=== PATIENT | female | born 1935 | race Caucasian/White ===

== ENCOUNTER 2018-04-21 15:27 | Emergency (ER) | payer OTHER ==
[2018-04-21] MEDS ORDERED: MECLIZINE HCL 12.5 MG TAB ONE (16:29)
[2018-04-21] MEDS ORDERED: DIAZEPAM 10 MG/2 ML INJ SYRINGE ONE (16:34)
[2018-04-21 16:51] LABS: Protime INR 1.54
[2018-04-21 16:54] LABS: Absolute Lymphocytes (CBC) 1.7 K/uL (0.7-4.9); Absolute Monocytes 0.7 K/uL (0.1-1.3); Absolute Neutrophil 4.2 K/uL (1.8-8.0); Basophils % 0.7 % (0-1.3); Eosinophils % 1.1 % (0-4.4); Hematocrit 41.3 % (36.0-45.0); Lymphocytes % 25.5 % (15.3-44.8); MCH 32.4 pg (27.0-35.0); MCV 96.7 fL (80-100); MPV 7.5 fL (7.6-11.3); Monocytes % 10.5 % (3.3-12.3); RBC Red Blood Cell Count 4.27 M/uL (3.86-4.86)
[2018-04-21 17:05] LABS: Albumin 3.1 g/dL (3.4-5.0); Bilirubin Direct 0.1 mg/dL (0-0.2); Bilirubin Total 0.4 mg/dL (0.2-1.0); Magnesium 2.3 mg/dL (1.8-2.4); Potassium 3.7 mmol/L (3.5-5.1); Protein, Total 6.2 g/dL (6.4-8.2)
--- NOTE | 2018-04-21 17:58 | RAD REPORT ---
EXAM DESCRIPTION: RAD - Chest Single View - 04/21/2018 5:11 pm CLINICAL HISTORY: Weakness, dizziness, shortness of breath COMPARISON: None. TECHNIQUE: AP portable chest image was obtained . FINDINGS: Lungs are clear. Lung markings are similar to comparison. Heart and vasculature are normal . No measurable pleural effusion and no pneumothorax. No gross bony abnormality seen. No acute aortic findings suspected. IMPRESSION: No acute cardiopulmonary process. No significant change from comparison.
--- NOTE | 2018-04-21 18:00 | RAD REPORT ---
EXAM DESCRIPTION: CT - Head Brain Wo Cont - 04/21/2018 5:48 pm CLINICAL HISTORY: Dizziness, headache COMPARISON: MRI March 2016 TECHNIQUE: Axial 5 mm thick images of the head were obtained without IV contrast. All CT scans are performed using dose optimization technique as appropriate and may include automated exposure control or mA/KV adjustment according to patient size. FINDINGS: No intracranial hemorrhage, mass, edema or shift of mid-line structures. No acute cortical based infarction. No cortical edema or sulcal effacement. Mild atrophy is present similar to 2016. M oderate chronic ischemic changes are present also without a substantial change from 2016. Focal dimin ished attenuation in the lateral margin left basal ganglia is most likely remote ischemic event. Dens e arterial tree calcifications are present. No abnormal extra-axial fluid collections. Ventricles are normal. Mastoid air cells and visualized portions of the paranasal sinuses are clear. No acute bony findings. IMPRESSION: No hemorrhage, mass or acute cortical based infarction. Mild atrophy and moderate chronic ischemic change. Intracranial findings are not substantially diffe rent from comparison. Chronic ischemic changes can mask nonhemorrhagic acute infarction. MR brain followup can be obtained if there is ongoing concern for acute ischemia.
--- NOTE | 2018-04-21 18:20 | RAD REPORT ---
EXAM DESCRIPTION: CT - Head angio - 04/21/2018 5:58 pm CLINICAL HISTORY: Right-sided headache COMPARISON: CT head same date TECHNIQUE: During dynamic enhancement using nonionic IV contrast, axial 2 mm sagittal and coronal im ages were obtained with MIP protocol. FINDINGS: Major venous sinuses are patent. No venous sinus thrombosis. No aneurysm or vascular malformation identified. No stenosis or occlusion of a major intracranial ves angeli. Internal carotid artery's have dense calcification. No vasculitis or other suspicious finding id entifiable. IMPRESSION: CT angio head shows no significant or suspicious finding. Internal carotid arteries do s how dense calcification without stenosis.
--- NOTE | 2018-04-21 18:23 | RAD REPORT ---
EXAM DESCRIPTION: CT - Neck Angio - 04/21/2018 6:02 pm CLINICAL HISTORY: Headache, neck pain COMPARISON: CT angio head same date, CT head same date TECHNIQUE: During dynamic enhancement using nonionic IV contrast, axial 2 millimeter thick images of the cervical vasculature performed. Sagittal and coronal reconstruction imaging was performed using MIP technique FINDINGS: Calcifications are present in each carotid bulb generating only a mild luminal narrowing. No hemodynamically significant stenosis at either carotid bulb. The common carotid and internal carot id arteries are otherwise clear of significant disease. Dense calcifications are present in the brett nous portions of the internal carotid artery's but no significant stenosis seen. There is no dissecti on. No aneurysm or vascular malformation. No vertebral artery abnormality seen. IMPRESSION: CT angio neck shows carotid bulb calcification and cavernous internal carotid artery gisela cification. Significant stenoses are not identified.
--- NOTE | 2018-04-21 18:33 | ER ---
Nurse's Notes [facility] Name: Bismark Clayton Age: 82 yrs Sex: Female : 1935 Arrival Date: 04/21/2018 Time: 15:31 Bed 14 Private MD: Noel Davis Diagnosis: Dizziness Presentation: 04/21 15:42 Presenting complaint: Patient states: Muscle spasm in right side of neck since this am. aj Patient also reports dizziness for 2 months. Has appointment with PCP for dizziness on Sunday. Transition of care: patient was not received from another setting of care. Onset of symptoms was April 21, 2018. Risk Assessment: Do you want to hurt yourself or someone else? Patient reports no desire to harm self or others. Initial Sepsis Screen: Does the patient meet any 2 criteria? No. Patient's initial sepsis screen is negative. Does the patient have a suspected source of infection? No. Patient's initial sepsis screen is negative. Care prior to arrival: None. 15:42 Method Of Arrival: Wheelchair 15:42 Acuity: GAURAV 3 aj Triage Assessment: 15:44 General: Appears in no apparent distress. comfortable, Behavior is calm, cooperative, aj appropriate for age. Pain: Denies pain. Neuro: Level of Consciousness is awake, alert, obeys commands, Oriented to person, place, time, situation, Appropriate for age. Neuro: Reports dizziness. Respiratory: Airway is patent Respiratory effort is even, unlabored, Respiratory pattern is regular, symmetrical. Derm: Skin is intact, is healthy with good turgor, Skin is pink, warm \T\ dry. normal. Historical: - Allergies: 15:44 Mobic (ringing in ears, balance not good); aj 15:44 Morphine; aj - Home Meds: 15:44 Ambien 10 mg Oral tab 1 tab once daily [Active]; Chlordiazepoxide Oral [Active]; aj fenofibric acid Oral [Active]; Fish Oil Oral [Active]; Lyrica 75 mg BID Oral [Active]; trimethobenzamide 300 mg Oral cap [Active]; Restasis 0.05 % ophthalmic dpet 1 drop daily [Active]; Zolpidem Tartrate Oral [Active]; - PMHx: 15:44 Headaches; Diverticulitis; Hyperlipidemia; Migraines; neuropathy; Osteoporosis; Sleep aj Apnea; - PSHx: 15:44 Hysterectomy; Bladder suspension; aj - Immunization history:: Adult Immunizations up to date. - Social history:: Smoking status: Patient/guardian denies using tobacco. - Ebola Screening: : Patient negative for fever greater than or equal to 101.5 degrees Fahrenheit, and additional compatible Ebola Virus Disease symptoms Patient denies exposure to infectious person Patient denies travel to an Ebola-affected area in the 21 days before illness onset No symptoms or risks identified at this time. Screenin:30 Abuse screen: Denies threats or abuse. Denies injuries from another. Nutritional hb screening: No deficits noted. Tuberculosis screening: No symptoms or risk factors identified. Fall Risk Total Emerson Fall Scale indicates Low Risk Score (25-44 pts). Fall prevention measures have been instituted. Side Rails Up X 2 Frequent Obs/Assesments occuring Family Present and informed to notify staff if they need to leave bedside As available Patient and Family Educated on Fall Prevention Program and strategies. Assessment: 16:30 General: Appears in no apparent distress. Behavior is calm, cooperative. Pain: Denies hb pain. Neuro: Level of Consciousness is awake, alert, obeys commands, Oriented to person, place, time, situation, Pupils are PERRLA, Reports dizziness. Cardiovascular: Heart tones S1 S2 present Capillary refill < 3 seconds Patient's skin is warm and dry. Respiratory: Airway is patent Trachea midline Respiratory effort is even, unlabored, Respiratory pattern is regular, symmetrical, Breath sounds are clear bilaterally. GI: No signs and/or symptoms were reported involving the gastrointestinal system. : No signs and/or symptoms were reported regarding the genitourinary system. EENT: No signs and/or symptoms were reported regarding the EENT system. Derm: No signs and/or symptoms reported regarding the dermatologic system. Skin is intact, is healthy with good turgor, Skin is pink, warm \T\ dry. Musculoskeletal: No signs and/or symptoms reported regarding the musculoskeletal system. 17:30 Reassessment: Patient appears in no apparent distress at this time. No changes from hb previously documented assessment. Patient and/or family updated on plan of care and expected duration. Pain level reassessed. Patient is alert, oriented x 3, equal unlabored respirations, skin warm/dry/pink. 18:08 Reassessment: Patient appears in no apparent distress at this time. No changes from hb previously documented assessment. Patient and/or family updated on plan of care and expected duration. Pain level reassessed. Patient is alert, oriented x 3, equal unlabored respirations, skin warm/dry/pink. 18:15 Reassessment: Report given to YOVANI Adam. hb Vital Signs: 15:44 BP 134 / 85; Pulse 92; Resp 17; Temp 97.4; Pulse Ox 96% on R/A; Weight 72.57 kg; Height aj 5 ft. 3 in. (160.02 cm); 16:30 BP 132 / 90; Pulse 78; Resp 15; Pulse Ox 96% on R/A; hb 17:28 BP 101 / 73; Pulse 90; Resp 15; Pulse Ox 96% on R/A; hb 18:22 BP 149 / 93; Pulse 88; Resp 16; Pulse Ox 100% on R/A; hb 15:44 Body Mass Index 28.34 (72.57 kg, 160.02 cm) aj ED Course: 15:31 Patient arrived in ED. mr 15:31 Noel Davis MD is Private Physician. mr 15:40 Madeleine Zamarripa, GINO is Primary Nurse. hb 15:43 Triage completed. aj 15:44 Arm band placed on right wrist. Patient placed in an exam room. aj 15:45 Rohit Johnson PA is PHCP. jr8 15:46 Oamr Machuca MD is Attending Physician. jr8 16:30 Inserted saline lock: 20 gauge in right antecubital area, using aseptic technique. hb Blood collected. 16:43 Patient has correct armband on for positive identification. Placed in gown. Bed in low mh5 position. Call light in reach. Side rails up X 1. Adult w/ patient. Warm blanket given. Pulse ox on. NIBP on. 17:10 EKG done, by ED staff, reviewed by Rohit DELACRUZ. mh5 17:11 XRAY Chest (1 view) In Process Unspecified. EDMS 17:47 CT completed. Patient moved to CT via stretcher. Patient moved back from CT. bq 17:48 CT Head Brain wo Cont In Process Unspecified. EDMS 17:58 Head angio In Process Unspecified. EDMS 17:58 Neck Angio In Process Unspecified. EDMS 18:32 Vi Virgen MD is Referral Physician. jr8 18:32 Danish Neal MD is Referral Physician. jr8 19:16 No provider procedures requiring assistance completed. IV discontinued, intact, em bleeding controlled, No redness/swelling at site. Pressure dressing applied. Administered Medications: 16:40 Drug: Valium 2 mg Route: IVP; Site: right antecubital; hb 19:16 Follow up: Response: No adverse reaction em 16:47 Drug: Meclizine 25 mg Route: PO; hb 19:16 Follow up: Response: No adverse reaction em Outcome: 18:32 Discharge ordered by MD. jr8 19:16 Discharged to home via wheelchair. em 19:16 Condition: good 19:16 Discharge instructions given to patient, family, Instructed on discharge instructions, follow up and referral plans. medication usage, Demonstrated understanding of instructions, follow-up care, medications, Prescriptions given X 2. 19:17 Patient left the ED. em Signatures: Dispatcher [employer] Janay Aguirre RN RN aj Rivera, Maria mr Shanique Aviles Edgar, IRON MINER IRON MINER em Rohit Johnson PA PA jr Madeleine Zamarripa RN RN hb Martinez, Maria [facility]
--- NOTE | 2018-04-21 18:33 | EDPHYS ---
Physician Documentation [facility] Name: Bismark Clayton Age: 82 yrs Sex: Female : 1935 Arrival Date: 04/21/2018 Time: 15:31 Bed 14 Private MD: Noel Davis ED Physician Omar Machuca HPI: 04/21 16:42 This 82 yrs old Female presents to ER via Wheelchair with complaints of Neck jr8 Problem, Dizziness. 16:43 The patient presents with lightheadedness. Onset: The symptoms/episode began/occurred jr8 gradually, 1 year(s) ago, and became worse and became persistent. Modifying factors: The symptoms are alleviated by nothing, the symptoms are aggravated by changing position. Associated signs and symptoms: The patient has no apparent associated signs or symptoms. Severity of symptoms: At their worst the symptoms were mild in the emergency department the symptoms are unchanged. Patient's baseline: Neuro: alert and fully oriented, Motor: no deficits, Ambulation: walks with assist only, uses walker, Speech: normal. The patient has not recently seen a physician. 16:48 Patient stated that she has had dizziness for some time now. Stated that it recently jr8 became worse. Stated that she has an odd sensation in her neck that makes it worse. Denies actual pain to the neck at rest or with motion. Denies trauma to neck . Historical: - Allergies: 15:44 Mobic (ringing in ears, balance not good); aj 15:44 Morphine; aj - Home Meds: 15:44 Ambien 10 mg Oral tab 1 tab once daily [Active]; Chlordiazepoxide Oral [Active]; aj fenofibric acid Oral [Active]; Fish Oil Oral [Active]; Lyrica 75 mg BID Oral [Active]; trimethobenzamide 300 mg Oral cap [Active]; Restasis 0.05 % ophthalmic dpet 1 drop daily [Active]; Zolpidem Tartrate Oral [Active]; - PMHx: 15:44 Headaches; Diverticulitis; Hyperlipidemia; Migraines; neuropathy; Osteoporosis; Sleep aj Apnea; - PSHx: 15:44 Hysterectomy; Bladder suspension; aj - Immunization history:: Adult Immunizations up to date. - Social history:: Smoking status: Patient/guardian denies using tobacco. - Ebola Screening: : Patient negative for fever greater than or equal to 101.5 degrees Fahrenheit, and additional compatible Ebola Virus Disease symptoms Patient denies exposure to infectious person Patient denies travel to an Ebola-affected area in the 21 days before illness onset No symptoms or risks identified at this time. ROS: 16:48 Eyes: Negative for injury, pain, redness, and discharge, ENT: Negative for injury, jr8 pain, and discharge, Neck: Negative for injury, pain, and swelling, Cardiovascular: Negative for chest pain, palpitations, and edema, Respiratory: Negative for shortness of breath, cough, wheezing, and pleuritic chest pain, Abdomen/GI: Negative for abdominal pain, nausea, vomiting, diarrhea, and constipation, Back: Negative for injury and pain, MS/Extremity: Negative for injury and deformity, Skin: Negative for injury, rash, and discoloration. 16:48 Neuro: Positive for dizziness, Negative for altered mental status, gait disturbance, headache, hearing loss, loss of consciousness, numbness, seizure activity, speech changes, syncope, near syncope, tingling, tinnitus, tremor, visual changes, weakness. Exam: 16:48 Eyes: Pupils equal round and reactive to light, extra-ocular motions intact. Lids and jr8 lashes normal. Conjunctiva and sclera are non-icteric and not injected. Cornea within normal limits. Periorbital areas with no swelling, redness, or edema. ENT: Nares patent. No nasal discharge, no septal abnormalities noted. Tympanic membranes are normal and external auditory canals are clear. Oropharynx with no redness, swelling, or masses, exudates, or evidence of obstruction, uvula midline. Mucous membranes moist. Neck: Trachea midline, no thyromegaly or masses palpated, and no cervical lymphadenopathy. Supple, full range of motion without nuchal rigidity, or vertebral point tenderness. No Meningismus. Cardiovascular: Regular rate and rhythm with a normal S1 and S2. No gallops, murmurs, or rubs. Normal PMI, no JVD. No pulse deficits. Respiratory: Lungs have equal breath sounds bilaterally, clear to auscultation and percussion. No rales, rhonchi or wheezes noted. No increased work of breathing, no retractions or nasal flaring. Abdomen/GI: Soft, non-tender, with normal bowel sounds. No distension or tympany. No guarding or rebound. No evidence of tenderness throughout. Back: No spinal tenderness. No costovertebral tenderness. Full range of motion. Skin: Warm, dry with normal turgor. Normal color with no rashes, no lesions, and no evidence of cellulitis. MS/ Extremity: Pulses equal, no cyanosis. Neurovascular intact. Full, normal range of motion. Neuro: Awake and alert, GCS 15, oriented to person, place, time, and situation. Cranial nerves II-XII grossly intact. Motor strength 5/5 in all extremities. Sensory grossly intact. Cerebellar exam normal. Normal gait. Vital Signs: 15:44 BP 134 / 85; Pulse 92; Resp 17; Temp 97.4; Pulse Ox 96% on R/A; Weight 72.57 kg; Height aj 5 ft. 3 in. (160.02 cm); 16:30 BP 132 / 90; Pulse 78; Resp 15; Pulse Ox 96% on R/A; hb 17:28 BP 101 / 73; Pulse 90; Resp 15; Pulse Ox 96% on R/A; hb 18:22 BP 149 / 93; Pulse 88; Resp 16; Pulse Ox 100% on R/A; hb 15:44 Body Mass Index 28.34 (72.57 kg, 160.02 cm) aj MDM: 15:46 Patient medically screened. jr8 18:30 Differential diagnosis: cardiac arrhythmia, CVA, generalized weakness, idiopathic jr8 dizziness, near-syncope, syncope, TIA, vertigo. Data reviewed: vital signs, nurses notes, lab test result(s), EKG, radiologic studies, CT scan, plain films. Data interpreted: Pulse oximetry: on room air is 100 %. Interpretation: normal. Counseling: I had a detailed discussion with the patient and/or guardian regarding: the historical points, exam findings, and any diagnostic results supporting the discharge/admit diagnosis, lab results, radiology results, the need for outpatient follow up, an ENT specialist, a neurologist, to return to the emergency department if symptoms worsen or persist or if there are any questions or concerns that arise at home. Response to treatment: the patient's symptoms have mildly improved after treatment. 04/21 16:22 Order name: Basic Metabolic Panel; Complete Time: 17:07 04/21 16:22 Order name: CBC with Diff; Complete Time: 16:58 04/21 16:22 Order name: LFT's; Complete Time: 17:07 04/21 16:22 Order name: Magnesium; Complete Time: 17:07 04/21 16:22 Order name: PT-INR; Complete Time: 16:58 04/21 18:20 Order name: Urine Dipstick--Ancillary (enter results); Complete Time: 18:49 04/21 16:22 Order name: XRAY Chest (1 view); Complete Time: 18:02 [facility] 04/21 16:22 Order name: EKG; Complete Time: 16:23 [facility] 04/21 16:22 Order name: Cardiac monitoring; Complete Time: 16:47 [facility] 04/21 16:23 Order name: CT Head Brain wo Cont; Complete Time: 18:02 [facility] 04/21 16:27 Order name: Head angio; Complete Time: 18:23 EDMS 04/21 16:27 Order name: Neck Angio; Complete Time: 18:33 EDIA 04/21 16:22 Order name: EKG - Nurse/Tech; Complete Time: 17:15 [facility] 04/21 16:22 Order name: IV Saline Lock; Complete Time: 16:47 [facility] 04/21 16:22 Order name: Labs collected and sent; Complete Time: 16:47 [facility] 04/21 16:22 Order name: O2 Per Protocol; Complete Time: 16:47 [facility] 04/21 16:22 Order name: O2 Sat Monitoring; Complete Time: 16:47 04/21 16:22 Order name: Urine Dipstick-Ancillary (obtain specimen); Complete Time: 18:19 Administered Medications: 16:40 Drug: Valium 2 mg Route: IVP; Site: right antecubital; hb 19:16 Follow up: Response: No adverse reaction em 16:47 Drug: Meclizine 25 mg Route: PO; hb 19:16 Follow up: Response: No adverse reaction em Disposition: 04/22 15:21 Co-signature as Attending Physician, Omar Machuca MD I agree with the assessment and alfredo plan of care. Disposition: 04/21/18 18:32 Discharged to Home. Impression: Dizziness . - Condition is Stable. - Prescriptions for Meclizine 25 mg Oral Tablet - take 1 tablet by ORAL route every 8 hours As needed; 30 tablet. Valium 2 mg Oral Tablet - take 1 tablet by ORAL route every 8 hours As needed; 20 tablet. - Medication Reconciliation Form, Thank You Letter, Antibiotic Education, Prescription Opioid Use form. - Follow up: Vi Virgen MD; When: 2 - 3 days; Reason: Recheck today's complaints, Continuance of care, Re-evaluation by your physician. Follow up: Danish Neal MD; When: 2 - 3 days; Reason: Recheck today's complaints, Continuance of care, Re-evaluation by your physician. - Problem is new. - Symptoms have improved. Signatures: Dispatcher [employer] EDJanay Fischer, RN RN Omar Modi MD MD cha Munoz, Edgar, PAPER CORE MACHINE OPERATOR PAPER CORE MACHINE OPERATOR em Rohit Johnson PA PA jr8 Madeleine Zamarripa RN RN Corrections: (The following items were deleted from the chart) 04/21 19:17 18:32 04/21/2018 18:32 Discharged to Home. Impression: Dizziness . Condition is Stable. em Forms are Medication Reconciliation Form, Thank You Letter, Antibiotic Education, Prescription Opioid Use. Follow up: Vi Virgen; When: 2 - 3 days; Reason: Recheck today's complaints, Continuance of care, Re-evaluation by your physician. Follow up: Danish Neal; When: 2 - 3 days; Reason: Recheck today's complaints, Continuance of care, Re-evaluation by your physician. Problem is new. Symptoms have improved. jr8
[2018-04-21 18:44] LABS: Urine Blood NEGATIVE (NEG); Urine Glucose NEGATIVE (NEG); Urine Protein NEGATIVE (NEG)
[2018-04-21 19:21] VITALS: TEMP 97.4
[2018-04-21 19:24] VITALS: BP 149/93; O2SAT 100
--- NOTE | 2018-04-22 07:40 | EKG ---
Test Date: 2018-04-21 Test Time: 16:54:45 Plant Utility Person: LUZ MEASUREMENT RESULTS: Intervals: Rate: 85 [place]: QRSD: 80 QT: 374 QTc: 445 [place]: P: [place]: QRS: 44 T: 62 INTERPRETIVE STATEMENTS: Atrial fibrillation Abnormal ECG Compared to ECG 11/07/2017 03:49:59 no significant change from previous ECG Electronically Signed On 04-22-18 07:39:44 CDT by Estuardo Dalton
== END 2018-04-21 19:17 | disposition home or self-care (01) ==
LOC: ER 15:27
DX: R42 Dizziness and giddiness (principal); E78.5 Hyperlipidemia, unspecified; Z88.5 Allergy status to narcotic agent
CPT/HCPCS: 36415; 70450; 70496; 70498; 71045; 80048; 80076; 81003; 83735; 85025; 85610; 93005; 96374; 99285; J3360; Q9967

== ENCOUNTER 2018-07-17 17:23 | Emergency (ER) | payer OTHER ==
--- NOTE | 2018-07-17 19:13 | RAD REPORT ---
EXAM DESCRIPTION: RAD - Foot Left 3 View - 07/17/2018 6:19 pm CLINICAL HISTORY: Foot pain, soft tissue swelling following trauma COMPARISON: None. FINDINGS: No fracture, dislocation or periosteal reaction. Minimal cortical irregularity is present in the medial margin of the fourth middle phalanx at the base. This is favored to be degenerative in etiology rather than traumatic. No acute or destructive bony process. No air or foreign body in the soft tissues. Soft tissue swelling is present over the dorsum of the fo ot. IMPRESSION: No gross fracture deformity or significant acute bone finding. Swelling of the dorsum of the foot. No air or foreign body.
--- NOTE | 2018-07-17 19:14 | RAD REPORT ---
EXAM DESCRIPTION: RAD - Ankle Left 3 View - 07/17/2018 6:19 pm CLINICAL HISTORY: Foot and ankle pain and swelling, trauma COMPARISON: None. FINDINGS: Oblique fracture is present through the distal fibula. 1 millimeter lateral displacement i s present. No angulation deformity. Ankle mortise is normal. Medial malleolus shows very small 2 mill imeter irregular bone density at the tip. This is potentially a small avulsion. Fracture such as this would not alter medical management. Soft tissue swelling is present around the ankle joint. No joint effusion seen. No joint space narrowing. No foreign body. IMPRESSION: Oblique fracture through the distal fibula. Very minimal lateral displacement is present with no angulation deformity. Punctate bone density tip of the medial malleolus is potentially a small avulsion. Such a fracture wo uld not likely alter medical management.
--- NOTE | 2018-07-17 19:30 | EDPHYS ---
Physician Documentation [facility] Name: Bismark Clayton Age: 82 yrs Sex: Female : 1935 Arrival Date: 07/17/2018 Time: 17:26 Bed 26 Private MD: Noel Davis ED Physician Jake Marrero HPI: 07/17 19:05 This 82 yrs old Female presents to ER via Wheelchair with complaints of Left pm1 Foot and Ankle Pain. 19:05 The patient presents with pain, swelling. The complaints affect the left lateral ankle pm1 and left foot. Context: The problem was sustained at home, resulted from Slip, the patient is not able to bear weight, normally uses a walker, Problem is a result from a previous injury: No. Onset: The symptoms/episode began/occurred last night. Modifying factors: The symptoms are alleviated by nothing. the symptoms are aggravated by weight bearing. Associated signs and symptoms: Pertinent positives: swelling, Pertinent negatives calf tenderness, numbness, tingling. Treatment prior to arrival includes: heat. Severity of symptoms: in the emergency department the symptoms are unchanged. The patient has not experienced similar symptoms in the past. Patient slipped while trying to get out of the tub resulting in injury to left ankle and foot. Patient did not hit her head. No headache, head injury, neck pain, LOC, nausea or vomiting. Historical: - Allergies: 17:34 Mobic (ringing in ears, balance not good); aj 17:34 Morphine; aj - Home Meds: 17:34 Ambien 10 mg Oral tab 1 tab once daily [Active]; Chlordiazepoxide Oral [Active]; aj fenofibric acid Oral [Active]; Fish Oil Oral [Active]; Lyrica 75 mg BID Oral [Active]; Restasis 0.05 % ophthalmic dpet 1 drop daily [Active]; trimethobenzamide 300 mg Oral cap [Active]; Zolpidem Tartrate Oral [Active]; - PMHx: 17:34 Diverticulitis; Headaches; Hyperlipidemia; Migraines; neuropathy; Osteoporosis; Sleep aj Apnea; - PSHx: 17:34 Hysterectomy; Bladder suspension; back surgery; aj - Immunization history:: Adult Immunizations up to date. - Social history:: Smoking status: Patient/guardian denies using tobacco. - Ebola Screening: : Patient negative for fever greater than or equal to 101.5 degrees Fahrenheit, and additional compatible Ebola Virus Disease symptoms Patient denies exposure to infectious person Patient denies travel to an Ebola-affected area in the 21 days before illness onset No symptoms or risks identified at this time. ROS: 19:05 Constitutional: Negative for fever, chills, and weight loss, Eyes: Negative for injury, pm1 pain, redness, and discharge, ENT: Negative for injury, pain, and discharge, Neck: Negative for injury, pain, and swelling, Cardiovascular: Negative for chest pain, palpitations, and edema, Respiratory: Negative for shortness of breath, cough, wheezing, and pleuritic chest pain, Abdomen/GI: Negative for abdominal pain, nausea, vomiting, diarrhea, and constipation, Back: Negative for injury and pain. 19:05 Skin: Negative for injury, rash, and discoloration, Neuro: Negative for headache, weakness, numbness, tingling, and seizure. 19:05 MS/extremity: Positive for pain, swelling, of the left foot and left lateral ankle. Exam: 19:05 Constitutional: This is a well developed, well nourished patient who is awake, alert, pm1 and in no acute distress. Head/Face: Normocephalic, atraumatic. Eyes: Pupils equal round and reactive to light, extra-ocular motions intact. Lids and lashes normal. Conjunctiva and sclera are non-icteric and not injected. Cornea within normal limits. Periorbital areas with no swelling, redness, or edema. ENT: Nares patent. No nasal discharge, no septal abnormalities noted. Tympanic membranes are normal and external auditory canals are clear. Oropharynx with no redness, swelling, or masses, exudates, or evidence of obstruction, uvula midline. Mucous membranes moist. Neck: Trachea midline, no thyromegaly or masses palpated, and no cervical lymphadenopathy. Supple, full range of motion without nuchal rigidity, or vertebral point tenderness. No Meningismus. Chest/axilla: Normal chest wall appearance and motion. Nontender with no deformity. No lesions are appreciated. Cardiovascular: Regular rate and rhythm with a normal S1 and S2. No gallops, murmurs, or rubs. No pulse deficits. Respiratory: Lungs have equal breath sounds bilaterally, clear to auscultation and percussion. No rales, rhonchi or wheezes noted. No increased work of breathing, no retractions or nasal flaring. Abdomen/GI: Soft, non-tender, with normal bowel sounds. No distension or tympany. No guarding or rebound. No evidence of tenderness throughout. Back: No spinal tenderness. No costovertebral tenderness. Full range of motion. Skin: Warm, dry with normal turgor. Normal color with no rashes, no lesions, and no evidence of cellulitis. 19:05 Musculoskeletal/extremity: Extremities: grossly normal except: noted in the left lateral ankle: swelling, tenderness, noted in the dorsum of left foot: ecchymosis, swelling. 19:05 Neuro: Orientation: is normal, Motor: moves all fours. Vital Signs: 17:34 BP 106 / 54; Pulse 70; Resp 20; Temp 98.6; Pulse Ox 94% on R/A; Weight 74.84 kg; Height aj 5 ft. 3 in. (160.02 cm); 20:35 BP 138 / 74; Pulse 72; Resp 18; Pulse Ox 100% on R/A; tl3 17:34 Body Mass Index 29.23 (74.84 kg, 160.02 cm) aj MDM: 17:39 Patient medically screened. pm1 19:24 Data reviewed: vital signs. Counseling: I had a detailed discussion with the patient pm1 and/or guardian regarding: the historical points, exam findings, and any diagnostic results supporting the discharge/admit diagnosis, radiology results, the need for outpatient follow up, for definitive care, a orthopedic surgeon, to return to the emergency department if symptoms worsen or persist or if there are any questions or concerns that arise at home. 07/17 17:47 Order name: Foot Left 3 View XRAY; Complete Time: 19:22 pm1 07/17 17:47 Order name: Ankle Left 3 View XRAY; Complete Time: 19:22 pm1 07/17 19:24 Order name: Posterior Orthoglass Ankle Splint; Complete Time: 19:52 pm1 07/17 19:24 Order name: Ankle Splint: Orthoglass: Stirrup; Complete Time: 19:52 pm1 Administered Medications: No medications were administered Disposition: 07/18 07:19 Co-signature as Attending Physician, Jake Marrero MD. rn Disposition: 07/17/18 19:29 Discharged to Home. Impression: Oblique fracture of the left distal fibula, Puntuate avulsion fracture of distal medial malleous of left tibia. - Condition is Stable. - Discharge Instructions: Ankle Fracture, Cast or Splint Care, Adult, RICE for Routine Care of Injuries. - Prescriptions for Tramadol 50 mg Oral Tablet - take 1 tablet by ORAL route every 8 hours as needed; 20 tablet. - Medication Reconciliation Form, Thank You Letter, Prescription Opioid Use form. - Follow up: Emergency Department; When: As needed; Reason: Worsening of condition. Follow up: Olegario Thompson MD; When: 2 - 3 days; Reason: Recheck today's complaints, Continuance of care, Re-evaluation by your physician. - Problem is new. - Symptoms have improved. Signatures: Dispatcher [employer] EDMS Janay Vuong RN RN Jake De MD MD rn Marinas, Patrick, FRANK ASSOCIATE GENETICS PROFESSOR pm1 Geovanna Mustafa RN RN tl3 Corrections: (The following items were deleted from the chart) 07/17 20:43 19:29 07/17/2018 19:29 Discharged to Home. Impression: Oblique fracture of the left tl3 distal fibula; Puntuate avulsion fracture of distal medial malleous of left tibia. Condition is Stable. Forms are Medication Reconciliation Form, Thank You Letter, Antibiotic Education, Prescription Opioid Use. Follow up: Emergency Department; When: As needed; Reason: Worsening of condition. Follow up: Olegario Thompson; When: 2 - 3 days; Reason: Recheck today's complaints, Continuance of care, Re-evaluation by your physician. Problem is new. Symptoms have improved. pm1
--- NOTE | 2018-07-17 19:30 | ER ---
Nurse's Notes [facility] Name: Bismark Clayton Age: 82 yrs Sex: Female : 1935 Arrival Date: 07/17/2018 Time: 17:26 Bed 26 Private MD: Noel Davis Diagnosis: Oblique fracture of the left distal fibula;Puntuate avulsion fracture of distal medial malleous of left tibia Presentation: 07/17 17:32 Presenting complaint: Patient states: Left foot pain and bruising after struggling to aj get out of the bathtub. Patient is unsure of injury but reports that she had slid around on her knees while trying to get out of her bathtub. Transition of care: patient was not received from another setting of care. Onset of symptoms was July 14, 2018. Risk Assessment: Do you want to hurt yourself or someone else? Patient reports no desire to harm self or others. Initial Sepsis Screen: Does the patient meet any 2 criteria? No. Patient's initial sepsis screen is negative. Does the patient have a suspected source of infection? No. Patient's initial sepsis screen is negative. Care prior to arrival: None. 17:32 Method Of Arrival: Wheelchair 17:32 Acuity: GAURAV 4 aj Triage Assessment: 17:34 General: Appears in no apparent distress. comfortable, Behavior is calm, cooperative, aj appropriate for age. Pain: Complains of pain in left foot. Neuro: Level of Consciousness is awake, alert, obeys commands, Oriented to person, place, time, situation, Appropriate for age. Respiratory: Airway is patent Respiratory effort is even, unlabored, Respiratory pattern is regular, symmetrical. Derm: Skin is intact, is healthy with good turgor, Skin is pink, warm \T\ dry. normal. 17:34 Derm: Bruising that is dark purple, on dorsum of left foot. aj Historical: - Allergies: 17:34 Mobic (ringing in ears, balance not good); aj 17:34 Morphine; aj - Home Meds: 17:34 Ambien 10 mg Oral tab 1 tab once daily [Active]; Chlordiazepoxide Oral [Active]; aj fenofibric acid Oral [Active]; Fish Oil Oral [Active]; Lyrica 75 mg BID Oral [Active]; Restasis 0.05 % ophthalmic dpet 1 drop daily [Active]; trimethobenzamide 300 mg Oral cap [Active]; Zolpidem Tartrate Oral [Active]; - PMHx: 17:34 Diverticulitis; Headaches; Hyperlipidemia; Migraines; neuropathy; Osteoporosis; Sleep aj Apnea; - PSHx: 17:34 Hysterectomy; Bladder suspension; back surgery; aj - Immunization history:: Adult Immunizations up to date. - Social history:: Smoking status: Patient/guardian denies using tobacco. - Ebola Screening: : Patient negative for fever greater than or equal to 101.5 degrees Fahrenheit, and additional compatible Ebola Virus Disease symptoms Patient denies exposure to infectious person Patient denies travel to an Ebola-affected area in the 21 days before illness onset No symptoms or risks identified at this time. Screenin:52 Abuse screen: Denies threats or abuse. Nutritional screening: No deficits noted. tl3 Tuberculosis screening: No symptoms or risk factors identified. Fall Risk None identified. Assessment: 17:52 General: Appears comfortable, well groomed, well developed, well nourished, Behavior is tl3 calm, cooperative, appropriate for age. Pain: Complains of pain in left foot Pain currently is 5 out of 10 on a pain scale. at worst was 10 out of 10 on a pain scale. Neuro: No deficits noted. Level of Consciousness is awake, alert, obeys commands. Cardiovascular: No deficits noted. Capillary refill < 3 seconds in left toes Patient's skin is warm and dry. Respiratory: Airway is patent Respiratory effort is even, unlabored, Respiratory pattern is regular, symmetrical. GI: No deficits noted. No signs and/or symptoms were reported involving the gastrointestinal system. : No deficits noted. No signs and/or symptoms were reported regarding the genitourinary system. EENT: No deficits noted. No signs and/or symptoms were reported regarding the EENT system. Derm: No deficits noted. No signs and/or symptoms reported regarding the dermatologic system. Musculoskeletal: Reports since left foot pain since Sunday, top of foot bruised moderate swelling to top of foot. 19:26 Reassessment: Patient appears in no apparent distress at this time. No changes from tl3 previously documented assessment. Patient and/or family updated on plan of care and expected duration. Pain level reassessed. Patient is alert, oriented x 3, equal unlabored respirations, skin warm/dry/pink. Tk at bedside discussing POC. 20:35 Reassessment: Patient appears in no apparent distress at this time. No changes from tl3 previously documented assessment. Patient and/or family updated on plan of care and expected duration. Pain level reassessed. Patient is alert, oriented x 3, equal unlabored respirations, skin warm/dry/pink. Vital Signs: 17:34 BP 106 / 54; Pulse 70; Resp 20; Temp 98.6; Pulse Ox 94% on R/A; Weight 74.84 kg; Height aj 5 ft. 3 in. (160.02 cm); 20:35 BP 138 / 74; Pulse 72; Resp 18; Pulse Ox 100% on R/A; tl3 17:34 Body Mass Index 29.23 (74.84 kg, 160.02 cm) aj ED Course: 17:26 Patient arrived in ED. mr 17:26 Noel Davis MD is Private Physician. mr 17:33 Triage completed. aj 17:34 Arm band placed on left wrist. aj 17:39 Tk Ferrer, FRANK is PHCP. pm1 17:39 Jake Marrero MD is Attending Physician. pm1 17:51 Geovanna Mustafa, GINO is Primary Nurse. tl3 17:52 Patient has correct armband on for positive identification. tl3 17:52 No provider procedures requiring assistance completed. Patient did not have IV access tl3 during this emergency room visit. 18:18 Ankle Left 3 View XRAY Sent. tl3 18:18 Foot Left 3 View XRAY Sent. tl3 18:19 Foot Left 3 View XRAY In Process Unspecified. EDMS 18:19 Ankle Left 3 View XRAY In Process Unspecified. EDMS 19:24 Olegario Thompson MD is Referral Physician. pm1 19:52 Orthoglass splint: Posterior short lleg splint applied on stirrup splint applied on cc left leg. CMS intact. Administered Medications: No medications were administered Outcome: 19:29 Discharge ordered by . pm1 20:35 Discharged to home via wheelchair. tl3 20:35 Condition: stable 20:35 Discharge instructions given to patient, family, Instructed on discharge instructions, follow up and referral plans. medication usage, Demonstrated understanding of instructions, follow-up care, medications, splint care, Prescriptions given X 1. 20:43 Patient left the ED. tl3 Signatures: Dispatcher [employer] EDJanay Fischer, GINO RN Ramos Inocencia mr Yolanda Melton cc Tk Ferrer, ORAL AND MAXILLOFACIAL SURGEON ORAL AND MAXILLOFACIAL SURGEON pm1 Geovanna Mustafa, GINO RN tl3
[2018-07-17 20:47] VITALS: TEMP 98.6
[2018-07-17 20:48] VITALS: BP 138/74; O2SAT 100
== END 2018-07-17 20:43 | disposition home or self-care (01) ==
LOC: ER 17:23
PROC: 2W3RX1Z Immobilization of Left Lower Leg using Splint (ICD-10-PCS; principal; 2018-07-17)
DX: S82.432A Displaced oblique fracture of shaft of left fibula, initial encounter for closed fracture (principal); S82.55XA Nondisplaced fracture of medial malleolus of left tibia, initial encounter for closed fracture; W18.2XXA Fall in (into) shower or empty bathtub, initial encounter; Y93.89 Activity, other specified; Y92.002 Bathroom of unspecified non-institutional (private) residence as the place of occurrence of the external cause; Z88.5 Allergy status to narcotic agent; E78.5 Hyperlipidemia, unspecified
CPT/HCPCS: 99283

== ENCOUNTER 2019-03-27 19:31 | Emergency (ER) | payer OTHER ==
--- OUTSIDE RECORDS SUMMARY | 2019-03-27 19:34 | XMS REPORT ---
:1935 [facility] [address] [place] [address] Care Team Providers Name Role Phone Unavailable Unavailable Unavailable Problems This patient has no known problems. Allergies, Adverse Reactions, Alerts This patient has no known allergies or adverse reactions. Medications This patient has no known medications.
--- NOTE | 2019-03-27 20:14 | RAD REPORT ---
EXAM DESCRIPTION: CT - Head Brain Wo Cont - 03/27/2019 8:02 pm CLINICAL HISTORY: Headache COMPARISON: March 2018 TECHNIQUE: Computed axial tomography of the head was obtained. IV contrast was not requested. All CT scans are performed using dose optimization technique as appropriate and may include automated exposure control or mA/KV adjustment according to patient size. FINDINGS: An intracranial bleed is not seen . The ventricles are normal in caliber. No extra-axial fluid collection is noted. Mild to moderate low-density areas within periventricular, deep and subcortical white matter likely represent ischemic changes secondary to small vessel disease . Fluid within the sinuses/ mastoids is not seen. IMPRESSION: No acute intracranial abnormality is seen. If patient's symptoms persist MRI of the bra in would be recommended.
[2019-03-27] MEDS ORDERED: DEXAMETHASONE 10 MG/ML VIAL ONE (21:06)
[2019-03-27] MEDS ORDERED: NA CHLORIDE 0.9% 500 ML ONE (21:06)
[2019-03-27] MEDS ORDERED: METOCLOPRAMIDE 10 MG/2mL INJ ONE (21:06)
[2019-03-27] MEDS ORDERED: DIPHENHYDRAMINE 50 MG/ML VIAL ONE (21:06)
--- NOTE | 2019-03-27 21:58 | ER ---
Nurse's Notes [facility] Name: Bismark Clayton Age: 83 yrs Sex: Female : 1935 Arrival Date: 03/27/2019 Time: 19:35 Bed 28 Private MD: Noel Davis Diagnosis: Headache Presentation: 03/27 19:48 Presenting complaint: Patient states: Headache that starts in back of neck that tl2 radiates to forehead and causes blurry vision, dizziness and photosensitivity. Pt denies weakness or numbness. Transition of care: patient was not received from another setting of care. Onset of symptoms was March 27, 2019. Risk Assessment: Do you want to hurt yourself or someone else? Patient reports no desire to harm self or others. Initial Sepsis Screen: Does the patient meet any 2 criteria? HR > 90 bpm. Does the patient have a suspected source of infection? No. Patient's initial sepsis screen is negative. Care prior to arrival: None. 19:48 Method Of Arrival: Wheelchair tl2 19:48 Acuity: GAURAV 3 tl2 Triage Assessment: 19:52 Headache History: The patient has had previous headaches and this one is similar to tl2 previous episodes. 19:52 Neuro: Level of Consciousness is awake, alert, obeys commands, Reports blurred vision tl2 dizziness, headache Denies weakness numbness. Historical: - Allergies: 19:52 Mobic (ringing in ears, balance not good); tl2 19:52 Morphine; tl2 - Home Meds: 19:52 sotalol 80 mg Oral tab [Active]; Lyrica 75 mg Oral [Active]; Xarelto 20 mg oral tab 1 tl2 tab once daily [Active]; pantoprazole 40 mg oral TbEC [Active]; temazepam 15 mg Oral cap 1 cap once daily [Active]; meclizine 25 mg Oral tab [Active]; - PMHx: 19:52 Diverticulitis; Headaches; Hyperlipidemia; Migraines; neuropathy; Osteoporosis; Sleep tl2 Apnea; - Immunization history:: Adult Immunizations up to date. - Social history:: Smoking status: Patient/guardian denies using tobacco. - Ebola Screening: : No symptoms or risks identified at this time. Screenin:54 Abuse screen: Denies threats or abuse. Nutritional screening: No deficits noted. tl2 Tuberculosis screening: No symptoms or risk factors identified. Fall Risk Ambulatory Aid- Crutches/Cane/Walker (15 pts). Gait- Impaired (20 pts.). Assessment: 19:50 General: Appears in no apparent distress. comfortable, Behavior is appropriate for age. lp1 Pain: Complains of pain in base of the skull and back of neck Pain currently is 6 out of 10 on a pain scale. Quality of pain is described as shooting, Pain began gradually, Also complains of no other associated symptoms. Neuro: Level of Consciousness is awake, alert, obeys commands, Oriented to person, place, time, situation, Production Statistical Clerk are equal bilaterally Moves all extremities. Full function Gait is steady, Speech is normal, Pupils are PERRLA, Intact Reports blurred vision "when the pain hits" dizziness, headache. Cardiovascular: Patient's skin is warm and dry. Respiratory: Respiratory effort is even, unlabored. GI: No signs and/or symptoms were reported involving the gastrointestinal system. : No signs and/or symptoms were reported regarding the genitourinary system. EENT: No signs and/or symptoms were reported regarding the EENT system. Derm: Skin is pink, warm \\T\\ dry. Musculoskeletal: Circulation, motion, and sensation intact. 21:00 Reassessment: Patient appears in no apparent distress at this time. No changes from lp1 previously documented assessment. 22:00 Reassessment: Patient is alert, oriented x 3, equal unlabored respirations, skin lp1 warm/dry/pink. Patient states headache resolved, provider notified Patient states feeling better. Patient states symptoms have improved. Vital Signs: 19:52 BP 157 / 108; Pulse 112; Resp 20; Temp 98(O); Pulse Ox 95% on R/A; Weight 73.48 kg; tl2 Height 5 ft. 3 in. (160.02 cm); Pain 4/10; 19:54 BP 143 / 79; Pulse 90; Resp 17; Pulse Ox 96% on R/A; lp1 21:00 BP 148 / 91; Pulse 95; Resp 18; Pulse Ox 96% on R/A; lp1 22:00 BP 148 / 79; Pulse 100; Resp 18; Pulse Ox 95% on R/A; Pain 0/10; lp1 19:52 Body Mass Index 28.70 (73.48 kg, 160.02 cm) tl2 ED Course: 19:35 Patient arrived in ED. mr 19:35 Noel Davis MD is Private Physician. mr 19:40 [facility] pm1 19:49 Zahraa Gabriel, RN is Primary Nurse. lp1 19:50 Triage completed. tl2 19:52 Arm band placed on right wrist. tl2 19:54 Patient has correct armband on for positive identification. Placed in gown. Cardiac lp1 monitor on. Pulse ox on. NIBP on. 19:[address] via stretcher. em2 20:02 CT Head Brain wo Cont In Process Unspecified. EDMS 20:07 CT completed. Patient tolerated procedure well. Patient moved back from CT. vm2 20:12 Omar Machuca MD is Attending Physician. pm1 21:07 No provider procedures requiring assistance completed. Inserted saline lock: 22 gauge mg2 in left forearm, using aseptic technique. 22:00 IV discontinued, No redness/swelling at site. Pressure dressing applied. lp1 Administered Medications: 21:05 Drug: Decadron - Dexamethasone 10 mg Route: IVP; Site: left forearm; lp1 21:45 Follow up: Response: Marked relief of symptoms lp1 21:05 Drug: NS 0.9% 500 ml Route: IV; Rate: bolus; Site: left forearm; lp1 21:45 Follow up: IV Status: Completed infusion; IV Intake: 500ml lp1 21:07 Drug: Reglan 10 mg Route: IVP; Site: left forearm; lp1 21:45 Follow up: Response: Marked relief of symptoms lp1 21:09 Drug: Benadryl 12.5 mg Route: IVP; Site: left forearm; lp1 21:45 Follow up: Response: Marked relief of symptoms lp1 Intake: 21:45 IV: 500ml; Total: 500ml. lp1 Outcome: 21:57 Discharge ordered by . pm1 22:00 Discharged to home via wheelchair, with significant other. lp1 22:00 Condition: good 22:00 Discharge instructions given to patient, Instructed on discharge instructions, follow up and referral plans. Demonstrated understanding of instructions, follow-up care. 22:14 Patient left the ED. lp1 Signatures: Dispatcher [facility] Inocencia Beasley mr Zahraa Gabriel, RN RN lp1 Sachin Willingham em2 Tk Ferrer, CHEMICAL TANK WORKER CHEMICAL TANK WORKER pm1 Kiara Younger, GINO RN tl2 Myla Garcia 2 Ho Kraft, GINO RN mg2 Corrections: (The following items were deleted from the chart) 19:55 19:50 Pain: Complains of pain in base of the skull and back of neck Pain currently is 6 lp1 out of 10 on a pain scale. Quality of pain is described as shooting, Pain began gradually, lp1
--- NOTE | 2019-03-27 21:58 | EDPHYS ---
Physician Documentation [facility] Name: Bismark Clayton Age: 83 yrs Sex: Female : 1935 Arrival Date: 03/27/2019 Time: 19:35 Bed 28 Private MD: Noel Davis ED Physician Omar Machuca HPI: 03/27 20:17 This 83 yrs old Female presents to ER via Wheelchair with complaints of pm1 Headache. 20:17 The patient complains of pain to the base of the skull. The patient describes the pm1 headache as constant. 20:17 Onset: The symptoms/episode began/occurred today. Associated signs and symptoms: pm1 Pertinent positives: dizziness, nausea, Photophobia Pertinent negatives: altered mental status, fever, neck stiffness, paresthesias, rash, vomiting, weakness. Headache History: The patient has had previous headaches and this one is similar to previous episodes. The symptoms are alleviated by nothing. the symptoms are aggravated by lights, palpation. The patient has not experienced similar symptoms in the past. The patient has not recently seen a physician. Historical: - Allergies: 19:52 Mobic (ringing in ears, balance not good); tl2 19:52 Morphine; tl2 - Home Meds: 19:52 sotalol 80 mg Oral tab [Active]; Lyrica 75 mg Oral [Active]; Xarelto 20 mg oral tab 1 tl2 tab once daily [Active]; pantoprazole 40 mg oral TbEC [Active]; temazepam 15 mg Oral cap 1 cap once daily [Active]; meclizine 25 mg Oral tab [Active]; - PMHx: 19:52 Diverticulitis; Headaches; Hyperlipidemia; Migraines; neuropathy; Osteoporosis; Sleep tl2 Apnea; - Immunization history:: Adult Immunizations up to date. - Social history:: Smoking status: Patient/guardian denies using tobacco. - Ebola Screening: : No symptoms or risks identified at this time. ROS: 20:17 Constitutional: Negative for fever, chills, and weight loss, Eyes: Negative for injury, pm1 pain, redness, and discharge, ENT: Negative for injury, pain, and discharge, Neck: Negative for injury, pain, and swelling, Cardiovascular: Negative for chest pain, palpitations, and edema, Respiratory: Negative for shortness of breath, cough, wheezing, and pleuritic chest pain, Abdomen/GI: Negative for abdominal pain, nausea, vomiting, diarrhea, and constipation, Back: Negative for injury and pain, : Negative for injury, bleeding, discharge, and swelling, MS/Extremity: Negative for injury and deformity, Skin: Negative for injury, rash, and discoloration. 20:17 Neuro: Positive for dizziness, headache, Negative for altered mental status, gait disturbance, numbness, seizure activity, tingling, weakness. Exam: 20:17 Constitutional: This is a well developed, well nourished patient who is awake, alert, pm1 and in no acute distress. Head/Face: Normocephalic, atraumatic. Eyes: Pupils equal round and reactive to light, extra-ocular motions intact. Lids and lashes normal. Conjunctiva and sclera are non-icteric and not injected. Cornea within normal limits. Periorbital areas with no swelling, redness, or edema. ENT: Nares patent. No nasal discharge, no septal abnormalities noted. Tympanic membranes are normal and external auditory canals are clear. Oropharynx with no redness, swelling, or masses, exudates, or evidence of obstruction, uvula midline. Mucous membranes moist. Neck: Trachea midline, no thyromegaly or masses palpated, and no cervical lymphadenopathy. Supple, full range of motion without nuchal rigidity, or vertebral point tenderness. No Meningismus. Chest/axilla: Normal chest wall appearance and motion. Nontender with no deformity. No lesions are appreciated. Cardiovascular: Regular rate and rhythm with a normal S1 and S2. No gallops, murmurs, or rubs. Normal PMI, no JVD. No pulse deficits. Respiratory: Lungs have equal breath sounds bilaterally, clear to auscultation and percussion. No rales, rhonchi or wheezes noted. No increased work of breathing, no retractions or nasal flaring. Abdomen/GI: Soft, non-tender, with normal bowel sounds. No distension or tympany. No guarding or rebound. No evidence of tenderness throughout. Back: No spinal tenderness. No costovertebral tenderness. Full range of motion. Skin: Warm, dry with normal turgor. Normal color with no rashes, no lesions, and no evidence of cellulitis. MS/ Extremity: Pulses equal, no cyanosis. Neurovascular intact. Full, normal range of motion. 20:17 Neuro: Orientation: is normal, Mentation: is normal, Memory: is normal, Cranial nerves: CN II- XII are normal as tested, Cerebellar function: normal finger to nose testing, Motor: moves all fours, strength is normal, strength is 5/5 in all extremities, Sensation: is normal, no obvious gross deficits. Vital Signs: 19:52 BP 157 / 108; Pulse 112; Resp 20; Temp 98(O); Pulse Ox 95% on R/A; Weight 73.48 kg; tl2 Height 5 ft. 3 in. (160.02 cm); Pain 4/10; 19:54 BP 143 / 79; Pulse 90; Resp 17; Pulse Ox 96% on R/A; lp1 21:00 BP 148 / 91; Pulse 95; Resp 18; Pulse Ox 96% on R/A; lp1 22:00 BP 148 / 79; Pulse 100; Resp 18; Pulse Ox 95% on R/A; Pain 0/10; lp1 19:52 Body Mass Index 28.70 (73.48 kg, 160.02 cm) tl2 MDM: 19:45 Patient medically screened. pm1 21:57 Data reviewed: vital signs. Data interpreted: Pulse oximetry: on room air is 96 %. pm1 Interpretation: normal. Counseling: I had a detailed discussion with the patient and/or guardian regarding: the historical points, exam findings, and any diagnostic results supporting the discharge/admit diagnosis, radiology results, the need for outpatient follow up, to return to the emergency department if symptoms worsen or persist or if there are any questions or concerns that arise at home. 03/27 19:51 Order name: CT Head Brain wo Cont; Complete Time: 20:17 pm1 Administered Medications: 21:05 Drug: Decadron - Dexamethasone 10 mg Route: IVP; Site: left forearm; lp1 21:45 Follow up: Response: Marked relief of symptoms lp1 21:05 Drug: NS 0.9% 500 ml Route: IV; Rate: bolus; Site: left forearm; lp1 21:45 Follow up: IV Status: Completed infusion; IV Intake: 500ml lp1 21:07 Drug: Reglan 10 mg Route: IVP; Site: left forearm; lp1 21:45 Follow up: Response: Marked relief of symptoms lp1 21:09 Drug: Benadryl 12.5 mg Route: IVP; Site: left forearm; lp1 21:45 Follow up: Response: Marked relief of symptoms lp1 Disposition: 03/28 09:37 Co-signature as Attending Physician, Omar Machuca MD I agree with the assessment and alfredo plan of care. Disposition: 03/27/19 21:57 Discharged to Home. Impression: Headache. - Condition is Stable. - Discharge Instructions: General Headache Without Cause. - Medication Reconciliation Form, Thank You Letter, Antibiotic Education, Prescription Opioid Use form. - Follow up: Emergency Department; When: As needed; Reason: Worsening of condition. Follow up: Private Physician; When: 2 - 3 days; Reason: Recheck today's complaints, Continuance of care, Re-evaluation by your physician. - Problem is new. - Symptoms have improved. Signatures: Dispatcher [employer] EDVT Omar Machuca MD MD cha Pena, Laura RN RN lp1 Tk Ferrer, FRANK TIRE DEBEADER pm1 Kiara Younger RN RN tl2 Corrections: (The following items were deleted from the chart) 03/27 22:14 21:57 03/27/2019 21:57 Discharged to Home. Impression: Headache. Condition is Stable. lp1 Forms are Medication Reconciliation Form, Thank You Letter, Antibiotic Education, Prescription Opioid Use. Follow up: Emergency Department; When: As needed; Reason: Worsening of condition. Follow up: Private Physician; When: 2 - 3 days; Reason: Recheck today's complaints, Continuance of care, Re-evaluation by your physician. Problem is new. Symptoms have improved. pm1
[2019-03-27 22:45] VITALS: TEMP 98
[2019-03-27 22:49] VITALS: BP 148/79; O2SAT 95
== END 2019-03-27 22:14 | disposition home or self-care (01) ==
LOC: ER 19:31
DX: R51 Headache (principal); E78.5 Hyperlipidemia, unspecified; Z79.01 Long term (current) use of anticoagulants; Z88.5 Allergy status to narcotic agent
CPT/HCPCS: 96361; 70450; 96375; 96374; 99285; J2765; J1100

== ENCOUNTER 2020-01-30 14:50 | Day surgery (SDC) | payer OTHER ==
--- OUTSIDE RECORDS SUMMARY | 2020-01-30 14:56 | XMS REPORT ---
:1935 Author Organization [facility] t Address [address] [place] [address] Dr. Almonte [address] [place] [id number] Care Team Providers Name Role Phone Unavailable Unavailable Unavailable Problems This patient has no known problems. Allergies, Adverse Reactions, Alerts This patient has no known allergies or adverse reactions. Medications This patient has no known medications.
[2020-01-30] MEDS ORDERED: Ringers Lactate 1,000 ML IV ONE (15:22)
[2020-01-30] MEDS ORDERED: LIDOCAINE 1% W/EPI 1:100,000 MDV 20 ML VIAL ONE (15:53)
[2020-01-30] MEDS ORDERED: FENTANYL CITR 100 MCG/2 ML ONE (15:59)
[2020-01-30] MEDS ORDERED: propofoL 200 MG/20 ML VIAL IV ONE (15:59)
[2020-01-30] MEDS: CEFAZOLIN/SWI 2gm 2 GM/20 ML SYR ONE ×2 (16:29→16:33)
[2020-01-30 17:37] VITALS: O2SAT 98
[2020-01-30] MEDS ORDERED: ONDANSETRON 4 MG/2 ML VIAL ONE (17:58)
[2020-01-30 18:13] VITALS: BP 119/58
[2020-01-30 18:35] VITALS: TEMP 97.9
[2020-01-30] MEDS ORDERED: HYDROCODONE/APAP 5/325 MG TAB PO PRN (18:35)
[2020-01-30] MEDS ORDERED: HYDROMORPHONE HCL 0.5 MG/0.5 ML INJ IV PRN (18:37)
[2020-01-30] MEDS ORDERED: HYDROMORPHONE HCL 1 MG/ML INJ IV PRN (18:38)
--- NOTE | 2020-01-31 05:46 | OP ---
Date of Procedure: 01/30/2020 Surgeon: Esperanza Martini MD Preoperative Diagnosis: Vulvar abscess. Postoperative Diagnosis: Right necrotic buttock abscess. Procedure Performed: Incision and drainage and debridement of the abscess and necrotic tissue of the right buttock and power irrigation. Anesthesia: General. Specimens: Aerobic and anaerobic cultures debrided tissue. Complications: No complications. Drains: No drains. Packing: The wound packing was placed wet-to-dry. Findings: Right buttock abscess that was about 2.5 cm to 3 cm in width and 0.5 cm in depth. With ne crotic tissue and necrotic wall of probably a skin gland that was found, all this was debrided adequa tely and there was good healthy tissue that was seen underneath. Description Of Procedure: After informed consent was verified, patient was taken back to the OR. Th e last dose of Xarelto was 24 hours ago. Her antibiotics still current oral. She was taken back to OR after consenting for abscess drainage and debridement. Then, she was placed in a supine fashion o n the operating table. General anesthesia was given, placed in lithotomy position. The vulvar and p erineal areas were prepped and draped in a sterile fashion. Then, local injection 1% lidocaine mixed with 1:100,000 epinephrine 10 mL was injected all around. Then, debrided tissues from the base was completely removed using sharp dissection with a scalpel. Aerobic and anaerobic cultures were taken. All debrided tissue was removed. Then, peripheral rim of the tissue on the skin was also debrided as there were undermined edges all under 3/4 of the circumference of the existing wound. Once all th e tissue was opened up and the base was removed, all the cyst wall was removed and there was healthy fatty tissue that was seen, and so power irrigation with a LiveLeaf suction industrial production manager was performed. At least a 1000 mL was used for the irrigation. Then, once this was completed, wet-to-dry Kerlix spo nge was placed and a tape was placed to retain this in place. Bleeding was minimal. The patient was recovered from anesthesia in the OR. Instrument, needle, and sponge counts were correct at the end of the case. Patient tolerated the procedure well. She was taken to the recovery room without probl ems. She will be discharged home today. She will be continued on her Bactrim b.i.d. for another wee k. Narcotic pain medication [place] will be sent with Radhika as well to premedicate to prevent the gianna sea that she has had in the past after the [place]. All instructions have been given to her daughter. She also will follow up with me in the office for a wound dressing change and teaching for the parveen hinojosa so this can be done at home once a day. She will stay off the Xarelto for another 24 hours. ZOIE/BAILEE Voice ID: [id number] Report ID: [id number]
== END 2020-01-30 19:13 | disposition home health service (06) ==
LOC: OR 14:50
PROVIDERS: ATTEND Obstetrics & Gynecology
PROC: 0J990ZZ Drainage of Buttock Subcutaneous Tissue and Fascia, Open Approach (ICD-10-PCS; principal; 2020-01-30 17:15)
DX: L02.31 Cutaneous abscess of buttock (principal); I48.20 Chronic atrial fibrillation, unspecified; G62.9 Polyneuropathy, unspecified; Z95.0 Presence of cardiac pacemaker; Z79.01 Long term (current) use of anticoagulants; Z86.73 Personal history of transient ischemic attack (TIA), and cerebral infarction without residual deficits; Z80.0 Family history of malignant neoplasm of digestive organs; Z82.49 Family history of ischemic heart disease and other diseases of the circulatory system
CPT/HCPCS: 87070; 87205; 87075; 87077; 87186; 10060; J2704; J3010; J0690; J7120; J2405

== ENCOUNTER 2020-12-14 00:16 | Emergency (ER) | payer OTHER ==
--- OUTSIDE RECORDS SUMMARY | 2020-12-14 00:19 | XMS REPORT | Continuity of Care Document ---
:1935 Author Organization [facility] t Address [address] [place] [address] Care Team Providers Name Role Phone Asked, Pcp Primary Care Physician Unavailable Only, Test Attending Clinician Unavailable Doctor Unassigned, Name Attending Clinician Unavailable Problems Condition Condition Condition Status Onset Resolution Last Treating Co mments Source Name Details Category Date Date Treatment Clinician Date Syncope Syncope Disease Active 2018-10 [place] 10-11 [facility] 00:00: st 00 Allergies, Adverse Reactions, Alerts Allergy Allergy Status Severity Reaction(s) Onset Inactive Treating Comm ents Source Name Type Date Date Clinician Diphenhy Propensi Active Unknown 2018-10 [place] to Reaction 1-11 [facility] adverse 00:00: st reaction 00 s to drug Hydrocod Propensi Active Unknown 2018-10 [place] ty to Reaction 1-11 [facility] adverse 00:00: st reaction 00 s to drug Meloxica Propensi Active Unknown 2018-10 [place] ty to Reaction 1-11 [facility] adverse 00:00: st reaction 00 s to drug Morphine Propensi Active Unknown 2018-10 [place] to Reaction 1-11 [facility] adverse 00:00: st reaction 00 s to drug Rivaroxa Propensi Active Unknown 2018-10 [place] ty to Reaction 1-11 [facility] adverse 00:00: st reaction 00 s to drug Acetamin Propensi Active Unknown 2018-10 Cant [place] ty to Reaction 1-11 remember [facility] adverse 00:00: st reaction 00 s to drug Zinc Propensi Active Unknown 2018-10 [place] Acetate ty to Reaction 1-11 [facility] adverse 00:00: st reaction 00 s to drug Social History Social Habit Start Date Stop Date Quantity Comments Source Sex Ass[birth year] At [birth year] Jimbo howeodi 00:00:00 00:00:00 Medications Ordered Filled Start Stop Current Ordering Indication Dosage Frequency Signature Comments Components Source Medication Medication Date Date Medication? Clinician (SIG) Name Name henokadin 2018-10 Yes 1{tbl} QD Take 1 [place] e-pseudoepH 1-12 tablet by Met hodi EDrine 10:41: mouth st (CHRIS-D 45 daily. 24 HOUR) 180-240 mg per 24 hr tablet furosemide 2018-10 Yes 40mg Q24H Take 40 mg [place] (LASIX) 40 1-12 by mouth Metho di mg tablet 10:41: daily as st 45 needed. pregabalin 2018-10 Yes 75mg QD Take 75 mg [place] (LYRICA) 75 -12 by mouth Meth laquita MG capsule 10:41: daily. st 45 metroNIDAZO 2018-10 Yes Q.5D Apply [place] LE -12 topically [facility] (METROCREAM 10:41: 2 (two) [address] ) 0.75 % 45 times a cream day. cycloSPORIN 2018-10 Yes 1[drp] Q12H Administer [facility] E 1-12 1 drop to [facility] (RESTASIS) 10:41: both eyes st 0.05 % 45 every 12 ophthalmic (twelve) emulsion hours. sotalol 2018-10 Yes 40mg [id number] Take 40 mg [facility] (BETAPACE) -12 [id number] by mouth 3 [facility] 80 MG 10:41: 3D (three) st tablet 45 times a day. temazepam 2018-10 Yes 15mg QD Take 15 mg [place] (RESTORIL) -12 by mouth Metho di 15 mg 10:41: nightly as st capsule 45 needed for sleep. rivaroxaban 2018-10 Yes 20mg QD Take 20 mg [place] (XARELTO) 1-12 by mouth [facility] i 20 mg 10:41: daily. st tablet 45 Procedures This patient has no known procedures. Plan of Care Planned Activity Planned Date Details Comments Source Future Scheduled 2020-05-01 INFLUENZA VACCINE [facility] 00:00:00 [code = INFLUENZA VACCINE] Future Scheduled 1999 65+ PNEUMOCOCCAL [facility] 00:00:00 VACCINE (1 of 1 - PPSV23) [code = 65+ PNEUMOCOCCAL VACCINE (1 of 1 - PPSV23)] Future Scheduled 1984 SHINGLES VACCINES (#1) [place] [facility] 00:00:00 [code = SHINGLES VACCINES (#1)] Future Scheduled 1950 COVID-19 VACCINE (1 of [place] [facility] 00:00:00 2) [code = COVID-19 VACCINE (1 of 2)] Encounters Start End Encounter Admission Attending Care Care Encounter Source Date/Time Date/Time Type Type Clinicians Facility Department ID 2020-08-23 2020-08-23 Laboratory Only, Adc [facility] [id number] 11:51:19 12:06:19 Only Test [place] [id number] [place] [id number] [place] [id number] 2020-08-23 2020-08-23 Orders Doctor TAMMY [id number] 00:00:00 00:00:00 Only Unassigned, JENA 350.1.13.10 [facility] [id number] Results This patient has no known results.
[2020-12-14 00:54] LABS: Absolute Lymphocytes (CBC) 1.8 K/uL (0.7-4.9); Basophils % 1.1 % (0-1.3); Hematocrit 37.5 % (36.0-45.0); Lymphocytes % 24.8 % (15.3-44.8); MPV 8.3 fL (7.6-11.3); RBC Red Blood Cell Count 3.86 M/uL (3.86-4.86)
[2020-12-14] MEDS ORDERED: NA CHLORIDE 0.9% 250 ML ONE (00:58)
[2020-12-14 01:01] LABS: Protime INR 1.73
[2020-12-14 01:14] LABS: ALT/SGPT 20 U/L (12-78); AST/SGOT 19 U/L (15-37); Albumin 3.2 g/dL (3.4-5.0); Alkaline Phosphatase 72 U/L (45-117); BUN Blood Urea Nitrogen 12 mg/dL (7-18); Bicarbonate 26 mmol/L (21-32); Bilirubin Direct 0.2 mg/dL (0-0.2); Bilirubin Total 0.6 mg/dL (0.2-1.0); Glucose Level 89 mg/dL (74-106); Magnesium 2.2 mg/dL (1.8-2.4); NT PRO-BNP 2918 pg/mL (<450); Potassium 3.8 mmol/L (3.5-5.1); Protein, Total 6.5 g/dL (6.4-8.2); Sodium Level 141 mmol/L (136-145); Troponin (Emerg Dept Use Only) < 0.02 ng/mL (0.0-0.045)
[2020-12-14 01:28] LABS: Urine Blood NEGATIVE (NEG); Urine Glucose NEGATIVE (NEG); Urine Protein NEGATIVE (NEG); Urine Specific Gravity 1.015 (1.005-1.030)
[2020-12-14 02:02] LABS: Urine Bacteria <20 /HPF (<20); Urine RBC <5 /HPF (NONE SEEN)
--- NOTE | 2020-12-14 02:34 | ER ---
Nurse's Notes [facility] Name: Bismark Clayton Age: 85 yrs Sex: Female : 1935 Arrival Date: 12/14/2020 Time: 00:17 Bed 17 Private MD: Diagnosis: Contusion of unspecified part of head;mechanical fall Presentation: 12/14 00:17 Chief complaint: EMS states: tripped and fell earlier today, takes xarelto for A FIB, em reports hitting the back of her head, no LOC, laceration or hematoma noted. Coronavirus screen: Client denies travel out of the [place] in the last 14 days. Ebola Screen: Patient negative for fever greater than or equal to 101.5 degrees Fahrenheit, and additional compatible Ebola Virus Disease symptoms Patient denies exposure to infectious person. Patient denies travel to an Ebola-affected area in the 21 days before illness onset. No symptoms or risks identified at this time. Initial Sepsis Screen: Does the patient meet any 2 criteria? HR > 90 bpm. Does the patient have a suspected source of infection? No. Patient's initial sepsis screen is negative. Risk Assessment: Do you want to hurt yourself or someone else? Patient reports no desire to harm self or others. Onset of symptoms was December 14, 2020. 00:17 Method Of Arrival: EMS: [facility] em 00:17 Acuity: GAURAV 3 em Historical: - Allergies: 00:21 Morphine; em 00:21 Mobic (ringing in ears, balance not good); em - Home Meds: 00:21 Xarelto 20 mg Oral tab 1 tab once daily [Active]; sotalol 80 mg Oral tab [Active]; em temazepam 15 mg Oral cap 1 cap once daily [Active]; Furosemide Oral [Active]; - PMHx: 00:21 Diverticulitis; Headaches; Hyperlipidemia; Migraines; neuropathy; Osteoporosis; Sleep em Apnea; - Immunization history:: Adult Immunizations up to date. - Social history:: Smoking status: Patient denies any tobacco usage or history of. Screenin:17 Abuse screen: Denies threats or abuse. Nutritional screening: No deficits noted. em Tuberculosis screening: No symptoms or risk factors identified. Fall Risk None identified. Primary Survey: 00:17 NO uncontrolled hemorrhage observed. A: The patient is alert. Airway: patent. em Breathing/Chest: Respiratory pattern: regular. Circulation: Cardiac rhythm: sinus rhythm. Disability Alert. Exposure/Environment: All clothing and personal items were removed. Forensic evidence collection is not deemed to be indicated at this time. Items placed in patient belonging bag. There is no evidence of uncontrolled external bleeding. Assessment: 00:17 General: Appears in no apparent distress. comfortable, Behavior is calm, cooperative, em appropriate for age. Pain: Complains of pain in occipital area Pain currently is 8 out of 10 on a pain scale. Neuro: Level of Consciousness is awake, alert, obeys commands, Oriented to person, place, time, situation. Cardiovascular: Capillary refill < 3 seconds Patient's skin is warm and dry. Respiratory: Airway is patent Respiratory effort is even, unlabored, Respiratory pattern is regular, symmetrical. Derm: Skin is intact, is healthy with good turgor, Skin is pink, warm \T\ dry. Musculoskeletal: Capillary refill < 3 seconds, Range of motion: intact in all extremities. 00:50 Reassessment: received VO for straight cath from provider. em 01:11 Reassessment: wheeled to CT via stretcher. em 02:00 Reassessment: Patient appears in no apparent distress at this time. Patient and/or em family updated on plan of care and expected duration. Pain level reassessed. Patient is alert, oriented x 3, equal unlabored respirations, skin warm/dry/pink. 02:50 Reassessment: pt up for D/C, pending arrival of daughter to transport home. em Vital Signs: 00:17 BP 150 / 095; Pulse 95; Resp 18; Temp 98.2; Pulse Ox 93% on R/A; Weight 81.65 kg; em Height 5 ft. 3 in. (160.02 cm); Pain 8/10; 01:00 BP 130 / 79; Pulse 109; Resp 18; Pulse Ox 94% on R/A; em 00:17 Body Mass Index 31.89 (81.65 kg, 160.02 cm) em [place] Coma Score: 00:17 Eye Response: spontaneous(4). Verbal Response: oriented(5). Motor Response: obeys em commands(6). Total: 15. Trauma Score (Adult): 00:17 Eye Response: spontaneous(1); Verbal Response: oriented(1); Motor Response: obeys em commands(2); Systolic BP: > 89 mm Hg(4); Respiratory Rate: 10 to 29 per min(4); Peterson Score: 15; Trauma Score: 12 ED Course: 00:17 Patient arrived in ED. em 00:17 Patient has correct armband on for positive identification. Placed in gown. Bed in low em position. Call light in reach. Side rails up X2. Adult w/ patient. Pulse ox on. NIBP on. 00:17 Patient maintains SpO2 saturation greater than 95% on room air. Thermoregulation: warm em blanket given to patient. 00:20 Triage completed. em 00:21 Arm band placed on. em 00:23 Jair Coles RN is Primary Nurse. em 00:25 Omar Galicia PA is PHCP. cp 00:25 Ramiro Hamm MD is Attending Physician. cp 00:40 Initial lab(s) drawn, by ne, sent to lab. Inserted saline lock: 22 gauge in right em antecubital area, using aseptic technique. Blood collected. 01:00 Straight cath inserted, using sterile technique, 18 Fr. Specimen obtained. Returned em clear yellow urine. Patient tolerated well. 01:30 XRAY Chest (1 view) In Process Unspecified. EDMS 01:56 CT Head C Spine In Process Unspecified. EDMS 03:48 No provider procedures requiring assistance completed. IV discontinued, intact, em bleeding controlled, No redness/swelling at site. Pressure dressing applied. Administered Medications: 00:49 Drug: NS 0.9% 250 ml Route: IV; Rate: bolus; Site: right antecubital; 01:13 Follow up: IV Status: Completed infusion; IV Intake: 250ml em Intake: 01:13 IV: 250ml; Total: 250ml. em Outcome: 02:34 Discharge ordered by . tw4 03:48 Discharged to home via wheelchair, with family. em 03:48 Condition: stable 03:48 Discharge instructions given to patient, family, Instructed on discharge instructions, follow up and referral plans. Demonstrated understanding of instructions, follow-up care. 03:52 Patient left the ED. sg Signatures: Dispatcher [employer] Ric Man RN RN Jair Coels RN RN Chaya Rich RN RN Omar Reyes PA PA cp Wadley, Terrence, MD LEON tw4
--- NOTE | 2020-12-14 02:35 | EDPHYS ---
Physician Documentation [facility] Name: Bismark Clayton Age: 85 yrs Sex: Female : 1935 Arrival Date: 12/14/2020 Time: 00:17 Bed 17 Private MD: ED Physician Ramiro Hamm HPI: 12/14 00:48 This 85 yrs old Female presents to ER via EMS with complaints of Fall Injury. cp 00:48 Details of fall: The patient fell from an upright position, while walking. cp 00:48 Associated injuries: The patient sustained injury to the head, contusion. cp 00:48 Onset: The symptoms/episode began/occurred just prior to arrival. Patient reports trip cp and fall at home tonight. Hit back of head. Denies syncope, LOC, and/or chest pain. Reports she called EMS because she was unable to get up off floor. Historical: - Allergies: 00:21 Morphine; em 00:21 Mobic (ringing in ears, balance not good); em - Home Meds: 00:21 Xarelto 20 mg Oral tab 1 tab once daily [Active]; sotalol 80 mg Oral tab [Active]; em temazepam 15 mg Oral cap 1 cap once daily [Active]; Furosemide Oral [Active]; - PMHx: 00:21 Diverticulitis; Headaches; Hyperlipidemia; Migraines; neuropathy; Osteoporosis; Sleep em Apnea; - Immunization history:: Adult Immunizations up to date. - Social history:: Smoking status: Patient denies any tobacco usage or history of. ROS: 00:48 Constitutional: Negative for body aches, chills, fever, poor PO intake. cp 00:48 Eyes: Negative for injury, pain, redness, and discharge. cp 00:48 Neck: Negative for pain with movement, pain at rest, stiffness. 00:48 Cardiovascular: Negative for chest pain, edema, palpitations. 00:48 Respiratory: Negative for cough, shortness of breath, wheezing. 00:48 Abdomen/GI: Negative for abdominal pain, nausea, vomiting, and diarrhea, black/tarry stool, rectal bleeding. 00:48 MS/extremity: Negative for injury or acute deformity, decreased range of motion. 00:48 Neuro: Positive for weakness, Negative for altered mental status, dizziness, headache, loss of consciousness, syncope. 00:48 All other systems are negative. Exam: 00:45 ECG was reviewed by the Attending Physician. cp 00:55 Constitutional: The patient appears in no acute distress, alert, awake, cp non-diaphoretic, non-toxic, well developed, well nourished. 00:55 Head/face: Noted is contusion, that is superficial, of the right occipital area, cp tenderness, that is mild, of the right occipital area. 00:55 Eyes: Periorbital structures: appear normal, Pupils: equal, round, and reactive to light and accomodation, Extraocular movements: intact throughout, Conjunctiva: normal, no exudate, no injection, Sclera: no appreciated abnormality, Lids and lashes: appear normal, bilaterally. 00:55 Neck: C-spine: vertebral tenderness, is not appreciated, crepitus, is not appreciated, ROM/movement: is normal, is supple, without pain, no range of motions limitations. 00:55 Chest/axilla: Inspection: normal, Palpation: is normal, no crepitus, no tenderness. 00:55 Cardiovascular: Rate: tachycardic, Rhythm: irregular, Edema: ankle edema, that is very mild, JVD: is not appreciated. 00:55 Respiratory: the patient does not display signs of respiratory distress, Respirations: normal, no use of accessory muscles, no retractions, labored breathing, is not present, Breath sounds: are clear throughout, no decreased breath sounds, no stridor, no wheezing. 00:55 Abdomen/GI: Inspection: abdomen appears normal, Bowel sounds: active, all quadrants, Palpation: abdomen is soft and non-tender, in all quadrants, voluntary guarding, is not appreciated, involuntary guarding, is not appreciated. 00:55 Back: pain, is absent. 00:55 Neuro: Orientation: to person, place \T\ time. Mentation: is normal, Motor: moves all fours, general weakness with no focal deficits, Sensation: no obvious gross deficits. Vital Signs: 00:17 BP 150 / 095; Pulse 95; Resp 18; Temp 98.2; Pulse Ox 93% on R/A; Weight 81.65 kg; em Height 5 ft. 3 in. (160.02 cm); Pain 8/10; 01:00 BP 130 / 79; Pulse 109; Resp 18; Pulse Ox 94% on R/A; em 00:17 Body Mass Index 31.89 (81.65 kg, 160.02 cm) em Peterson Coma Score: 00:17 Eye Response: spontaneous(4). Verbal Response: oriented(5). Motor Response: obeys em commands(6). Total: 15. Trauma Score (Adult): 00:17 Eye Response: spontaneous(1); Verbal Response: oriented(1); Motor Response: obeys em commands(2); Systolic BP: > 89 mm Hg(4); Respiratory Rate: 10 to 29 per min(4); [place] Score: 15; Trauma Score: 12 MDM: 00:31 Patient medically screened. cp 12/14 00:27 Order name: Basic Metabolic Panel cp 12/14 00:27 Order name: CBC with Diff cp 12/14 00:27 Order name: LFT's cp 12/14 00:27 Order name: Magnesium cp 12/14 00:27 Order name: NT PRO-BNP 12/14 00:27 Order name: PT-INR cp 12/14 00:27 Order name: Troponin (emerg Dept Use Only); Complete Time: 02:28 cp 12/14 00:27 Order name: Urine Microscopic Only; Complete Time: 02:28 cp 12/14 00:27 Order name: Basic Metabolic Panel; Complete Time: 02:28 EDMS 12/14 00:27 Order name: CBC with Automated Diff; Complete Time: 02:28 EDMS 12/14 00:27 Order name: Liver (Hepatic) Function; Complete Time: 02:28 EDMS 12/14 00:27 Order name: Magnesium; Complete Time: 02:28 EDMS 12/14 00:27 Order name: NT PRO-BNP; Complete Time: 02:28 EDMS 12/14 00:27 Order name: XRAY Chest (1 view) cp 12/14 00:27 Order name: EKG; Complete Time: 00:28 cp 12/14 00:27 Order name: Cardiac monitoring; Complete Time: 00:29 cp 12/14 00:27 Order name: EKG - Nurse/Tech; Complete Time: 00:40 cp 12/14 00:27 Order name: IV Saline Lock; Complete Time: 00:40 cp 12/14 00:27 Order name: Labs collected and sent; Complete Time: 00:40 cp 12/14 00:27 Order name: O2 Per Protocol; Complete Time: 00:29 cp 12/14 00:27 Order name: O2 Sat Monitoring; Complete Time: 00:29 cp 12/14 00:27 Order name: Urine Dipstick-Ancillary (obtain specimen); Complete Time: 01:13 cp 12/14 00:27 Order name: CT Head C Spine cp 12/14 00:27 Order name: Protime (+INR); Complete Time: 02:28 EDMS 12/14 01:17 Order name: Straight Catheterization; Complete Time: 01:17 em 12/14 01:23 Order name: Urine Dipstick--Ancillary (enter results); Complete Time: 02:28 tt3 12/14 02:30 Order name: SARS-COV-2 RT PCR EDMS EC:45 Rate is 105 beats/min. Rhythm is irregular. QRS interval is normal. QT interval is cp normal. Interpreted by me. Reviewed by me. Administered Medications: 00:49 Drug: NS 0.9% 250 ml Route: IV; Rate: bolus; Site: right antecubital; 01:13 Follow up: IV Status: Completed infusion; IV Intake: 250ml em Disposition: 06:39 Co-signature as Attending Physician, Ramiro Hamm MD I agree with the assessment and tw4 plan of care. Disposition: 12/14/20 02:34 Discharged to Home. Impression: Contusion of unspecified part of head, mechanical fall. - Condition is Stable. - Discharge Instructions: Contusion, Fall Prevention in the Home. - Medication Reconciliation Form, Thank You Letter, Antibiotic Education, Prescription Opioid Use form. - Follow up: Private Physician; When: Upon discharge from the Emergency Department; Reason: Recheck today's complaints, Continuance of care, Re-evaluation by your physician. - Problem is new. - Symptoms have improved. Signatures: Dispatcher [employer] EDPA Ric Latham RN RN sg Jair Coles RN RN Chaya Rich RN RN ss Page, Corey, PA PA cp Wadley, Terrence, MD MD tw4 Corrections: (The following items were deleted from the chart) 01:45 00:28 CORONAVIRUS+MR.LAB.BRZ ordered. EDPA EDMS 03:52 02:34 12/14/2020 02:34 Discharged to Home. Impression: Contusion of unspecified part of sg head; mechanical fall. Condition is Stable. Forms are Medication Reconciliation Form, Thank You Letter, Antibiotic Education, Prescription Opioid Use. Follow up: Private Physician; When: Upon discharge from the Emergency Department; Reason: Recheck today's complaints, Continuance of care, Re-evaluation by your physician. Problem is new. Symptoms have improved. tw4
[2020-12-14 05:19] VITALS: BP 130/79; TEMP 98.2; O2SAT 94
--- NOTE | 2020-12-14 07:49 | RAD REPORT ---
EXAM DESCRIPTION: Dom Single View12/14/2020 1:30 am CLINICAL HISTORY: Chest pain COMPARISON: 2018 FINDINGS: The lungs appear clear of acute infiltrate. The heart is mildly enlarged. Pacemaker leads are in place. IMPRESSION: No acute abnormalities displayed
--- NOTE | 2020-12-14 10:56 | RAD REPORT ---
EXAM DESCRIPTION: CT - Head C Spine Mpr Wo Con - 12/14/2020 6:18 am CLINICAL HISTORY: 85 years, Female, fall COMPARISON: 03/27/2019. FINDINGS: Multiple transaxial tomograms of the brain were obtained from the base of the skull to the vertex without contrast. 2-D multiplanar reformats and the coronal and sagittal plane were performed and reviewed. An individualized dose optimization technique, Automated Exposure Control, was utilized for the perfo rmed procedure. Brain parenchyma demonstrate mild to moderate prominence of the sulci and gyri are corresponding to m oderate cerebral and cerebellar atrophy with moderate periventricular white matter changes of microva scular ischemia. There is no midline shift and/or mass effect. There is no evidence for acute intracr anial hemorrhage. Lateral ventricles and cisterns displace normal appearance. No intra or extra a xial fluid collections were seen. The calvarium is intact with no evidence for fracture. The visualiz ed portions of the paranasal sinuses and orbits demonstrate to be clear. IMPRESSION: BRAIN ATROPHY WITH PERIVENTRICULAR MATTER CHANGES OF MICROVASCULAR ISCHEMIA. NO ACUTE INTRACRANIAL HEMORRHAGE. NO SIGNIFICANT INTERVAL CHANGE. Electronically signed by: Calin Limon MD 12/14/2020 2:03 AM CDT Due to temporary technical issues with the PACS/Fluency reporting system, reports are being signed by the in house radiologist without review as a courtesy to ensure prompt reporting. The interpreting r adiologist is fully responsible for the content of the report.
--- NOTE | 2020-12-15 04:34 | EKG ---
Test Date: 2020-12-13 Test Time: 23:37:02 Comb Winder: MARA MEASUREMENT RESULTS: Intervals: Rate: 105 NM: QRSD: 82 QT: 378 QTc: 499 [place]: P: NM: QRS: 60 T: 31 INTERPRETIVE STATEMENTS: Atrial fibrillation with rapid ventricular response with premature ventricular or aberrantly conducted complexes Nonspecific ST and T wave abnormality, probably digitalis effect Abnormal ECG Compared to ECG 04/21/2018 16:54:45 Ventricular premature complex(es) now present ST (T wave) deviation now present Electronically Signed On 12-15-20 04:32:22 CDT by Franc Kebede
== END 2020-12-14 03:52 | disposition home or self-care (01) ==
LOC: ER 00:16
DX: S00.83XA Contusion of other part of head, initial encounter (principal); W01.198A Fall on same level from slipping, tripping and stumbling with subsequent striking against other object, initial encounter; Y93.01 Activity, walking, marching and hiking; Y92.009 Unspecified place in unspecified non-institutional (private) residence as the place of occurrence of the external cause; Z20.822 Contact with and (suspected) exposure to COVID-19; Z79.01 Long term (current) use of anticoagulants; Z88.5 Allergy status to narcotic agent; E78.5 Hyperlipidemia, unspecified
CPT/HCPCS: 36415; 51702; 70450; 71045; 72125; 80048; 80076; 81003; 81015; 83735; 83880; 84484; 85025; 85610; 93005; 96365; 99284; J7050; U0003

== ENCOUNTER 2022-08-11 12:59 | Emergency (ER) | payer OTHER ==
--- OUTSIDE RECORDS SUMMARY | 2022-08-11 13:02 | XMS REPORT | Continuity of Care Document ---
:1935 Author Organization [facility] t Address [address] [place] [address] Care Team Providers Name Role Phone Asked, No Pcp Primary Care Physician Unavailable Александр Briggs Attending Clinician Unavailable Only, Adc Test Attending Clinician Unavailable Doctor Unassigned, [place] Attending Clinician Unavailable Александр Briggs Admitting Clinician Unavailable Payers Payer Name Policy Type Policy Number Effective Date Expiration Date Ros sarmiento MEDICARE PART A [id number] 1999 \T\ B 00:00:00 [employer] INDEMNITY [id number] 2000 00:00:00 Problems Condition Condition Condition Status Onset Resolution Last Treating Co mments Source Name Details Category Date Date Treatment Clinician Date Syncope Syncope Disease Active 2018-10 Method[facility] 10-11 00:00: Hospita 00 l Allergies, Adverse Reactions, Alerts Allergy Allergy Status Severity Reaction(s) Onset Inactive Treating Comm ents Source Name Type Date Date Clinician morphine DA Active U EXCESSIVE [facility] SEDATION, 10-31 Clear TEMPORARY 00:00: Wahl PARALYSIS 00 [facility] Diphenhy Propensi Active Unknown 2018-10 Metho di dramine ty to Reaction 10-11 adverse 00:00: Hospita reaction 00 l s to drug Hydrocod Propensi Active Unknown 2018-10 Metho di one ty to Reaction 10-11 adverse 00:00: Hospita reaction 00 l s to drug Meloxica Propensi Active Unknown 2018-10 Metho di m ty to Reaction 10-11 st adverse 00:00: Hospita reaction 00 l s to drug Morphine Propensi Active Unknown 2018-10 Metho di ty to Reaction 10-11 st adverse 00:00: Hospita reaction 00 l s to drug Rivaroxa Propensi Active Unknown 2018-10 Metho di ban ty to Reaction 10-11 st adverse 00:00: Hospita reaction 00 l s to drug Acetamin Propensi Active Unknown 2018-10 Cant Metho di ophen ty to Reaction 10-[address] adverse 00:00: Hospita reaction 00 l s to drug Zinc Propensi Active Unknown 2018-10 Methodi Acetate ty to Reaction 10-11 st adverse 00:00: Hospita reaction 00 l s to drug MORPHINE DRUG Active Unknown-Cmnt 2017-10 Un malka INGREDI 0-24 ity of 00:00: [address] hydrocod DA Active [place] FLU LIKE 2008-10 [facility] one SYMPTOMS 0-01 Clear 00:00: [place] 00 [facility] predniso DA Active [place] 2008-10 [facility] ne 0-01 Clear 00:00: [place] 00 [facility] tetracyc DA Active [place] 2008-10 [facility] line 0-01 Clear 00:00: [place] 00 [facility] gentamic DA Active [place] 2008-10 [facility] in 0-01 Clear 00:00: [place] 00 [facility] Social History Social Habit Start Date Stop Date Quantity Comments Source Sex Assigned At [birth year] [facility] 00:00:00 00:00:00 Smoking Status Start Date Stop Date Source Tobacco smoking consumption unknown [facility] Medications Ordered Filled Start Stop Current Ordering Indication Dosage Frequency Signature Comments Components Source Medication Medication Date Date Medication? Clinician (SIG) Name Name fexofenadin 2018-10 Yes 1{tbl} QD Take 1 Me thodi e-pseudoepH 1-[address] EDrine 10:41: mouth Hospita (CHRIS-D 45 daily. l 24 HOUR) 180-240 mg per 24 hr tablet furosemide 2018-10 Yes 40mg Q24H Take 40 mg M ethodi (LASIX) 40 1-[address] mg tablet 10:41: daily as Hosp benito 45 needed. l pregabalin 2018-10 Yes 75mg QD Take 75 mg M ethodi (LYRICA) 75 1-[address] MG capsule 10:41: daily. Hospi ta 45 l metroNIDAZO 2018-10 Yes Q.5D Apply Metho di LE 1-[address] (METROCREAM 10:41: 2 (two) Hos ирина ) 0.75 % 45 times a l cream day. cycloSPORIN 2018-10 Yes 1[drp] Q12H Administer Methodi E 1-[address] (RESTASIS) 10:41: both eyes Ho spita 0.05 % 45 every 12 l ophthalmic (twelve) emulsion hours. sotalol 2018-10 Yes 40mg [id number] Take 40 mg Methodi (BETAPACE) 1-12 [id number] mouth [address] 80 MG 10:41: 3D (three) Hospita tablet 45 times a l day. temazepam 2018-10 Yes 15mg QD Take 15 mg Me thodi (RESTORIL) 1-[address] 15 mg 10:41: nightly as Hospit a capsule 45 needed for l sleep. rivaroxaban 2018-10 Yes 20mg QD Take 20 mg Methodi (XARELTO) 1-[address] 20 mg 10:41: daily. Hospita tablet 45 l fexofenadin 2018-10 Yes 1{tbl} QD Take 1 Me thodi e-pseudoepH 1-[address] EDrine 10:41: mouth Hospita (CHRIS-D 45 daily. l 24 HOUR) 180-240 mg per 24 hr tablet furosemide 2018-10 Yes 40mg Q24H Take 40 mg M ethodi (LASIX) 40 1-[address] mg tablet 10:41: daily as Hosp benito 45 needed. l pregabalin 2018-10 Yes 75mg QD Take 75 mg M ethodi (LYRICA) 75 1-[address] MG capsule 10:41: daily. Hospi ta 45 l metroNIDAZO 2018-10 Yes Q.5D Apply Metho di LE 1-[address] (METROCREAM 10:41: 2 (two) Hos ирина ) 0.75 % 45 times a l cream day. cycloSPORIN 2018-10 Yes 1[drp] Q12H Administer Methodi E 1-[address] (RESTASIS) 10:41: both eyes Ho spita 0.05 % 45 every 12 l ophthalmic (twelve) emulsion hours. sotalol 2018-10 Yes 40mg [id number] Take 40 mg Methodi (BETAPACE) 1-12 [id number] mouth [address] 80 MG 10:41: 3D (three) Hospita tablet 45 times a l day. temazepam 2018-10 Yes 15mg QD Take 15 mg Me thodi (RESTORIL) 1-[address] 15 mg 10:41: nightly as Hospit a capsule 45 needed for l sleep. rivaroxaban 2018-10 Yes 20mg QD Take 20 mg Methodi (XARELTO) 1-[address] 20 mg 10:41: daily. Hospita tablet 45 l Procedures Procedure Date / Time Performed Performing Clinician Gio erlin [id number] 2021-11-02 00:00:00 RICH Chavez [facility] Plan of Care Planned Activity Planned Date Details Comments Source Future Scheduled 2022-08-03 HEPATITIS B VACCINES Met [facility] Test 19:25:23 (1 of 3 - 3-dose series) [code = HEPATITIS B VACCINES (1 of 3 - 3-dose series)] Future Scheduled 2022-08-03 COVID-19 VACCINE (#1) [facility] Hospital Test 19:25:23 [code = COVID-19 VACCINE (#1)] Future Scheduled 2022-08-03 SHINGLES VACCINES (1 Met [facility] Test 19:25:23 of 2) [code = SHINGLES VACCINES (1 of 2)] Future Scheduled 2022-08-03 65+ [facility] Test 19:25:23 VACCINE (1 - PCV) [code = 65+ PNEUMOCOCCAL VACCINE (1 - PCV)] Future Scheduled 2022-08-03 INFLUENZA VACCINE Method [facility] Hospital Test 19:25:23 [code = INFLUENZA VACCINE] Future Scheduled 2021-09-21 COVID-19 VACCINE (1) Met [facility] Hospital Test 12:31:11 [code = COVID-19 VACCINE (1)] Future Scheduled 2021-09-21 SHINGLES VACCINES (#1) [facility] Hospital Test 12:31:11 [code = SHINGLES VACCINES (#1)] Future Scheduled 2021-09-21 65+ [facility]AL [facility] Test 12:31:11 VACCINE (1 of 1 - PPSV23) [code = 65+ PNEUMOCOCCAL VACCINE (1 of 1 - PPSV23)] Future Scheduled 2021-09-21 INFLUENZA VACCINE Method ist Hospital Test 12:31:11 [code = INFLUENZA VACCINE] Encounters Start End Encounter Admission Attending Care Care Encounter Source Date/Time Date/Time Type Type Clinicians Facility Department ID 2022-01-04 2022-01-04 Inpatient VIRAL Dominguez OUTD [id number] [facility] 05:18:00 05:18:00 Александр 40 [facility] 2021-11-02 2021-11-02 Inpatient VIRAL Dominguez INTE.02 [id number] [facility] 12:31:00 18:10:00 Александр 44 [facility] 2020-08-23 2020-08-23 Laboratory Only, [facility] [id number] 11:51:19 12:06:19 Only Test [place] [id number] [place] [id number] [place] [id number] 2020-08-23 2020-08-23 Outpatient R [facility] [id number] [facility] 12:00:00 12:00:00 ity [facility] 2020-08-23 2020-08-23 Orders Doctor TAMMY [id number] 00:00:00 00:00:00 Only Unassigned, [place] [id number] [place] [facility] [id number] Results Test Description Test Time Test Comments Results Result Comments Source Novel Coronavirus 2019 Inhouse 2022-01-03 01:14:00 Test Item Value Reference Range Interpretation Comme nts Novel Coronavirus 2019 Negative Negative Posit bola results are indicative of the Inhouse (test code = presenc e [id number] RNA, clinical COVNONPUI) correlation wit h patient historyand other diagnosti c information is necessary to de terminepatient infection status. Positiv e results do not rule outbacterial in fection or co-infection with other viru ses. Negative results do not preclude SA RS-CoV-2 infection andshould not b e used as the sole basis for patient man agementdecisions. Negative result s must be combined with otherclinical o bservations, patient history, and ep idemiologicalinformation. Detection of SA RS-CoV-2 RNA may be affected bysamp le collection methods, storage conditi ons, and/or stageof infection. Yuli l RNA mutations, vaccinations, a ntiviraltherapeutics, antibiotics, ch emotherapeutic orimmunosuppres artur drugs have not been evaluated for e ffectson detection. Results are for the identification of SARS-CoV-2 RNA usingreal-time (RT) polymerase sanchez n reaction (PCR) technologyfor t he qualitative detection of nucleic acid s from [id number] virus and diagn osis of SARS-CoV-2 virusinfection. It is an Emergency Use Authorization ( EUA) testauthorized by the U.S. FDA. BASIC METABOLIC [id number] 13:59:00 Test Item Value Reference Range Interpretation Comments SODIUM (test code = NA) 141 mEq/L 134-147 N POTASSIUM (test code = 3.9 mEq/L 3.4-5.0 N K) CHLORIDE (test code = 106 mEq/L 100-108 N CL) CARBON DIOXIDE (test 28 mEq/l 21-33 N code = CO2) ANION GAP (test code = 11 0-20 N GAP) GLUCOSE (test code = 91 mg/dL 70-110 N GLU) BLOOD UREA NITROGEN 21 mg/dL 7-18 H (test code = BUN) GLOMERULAR FILTRATION 52.4 70-80 L Units of measure = RATE (test code = GFR) ml/mi n/1.73 m2 CREATININE (test code = 1.0 mg/dL 0.6-1.3 N CREAT) CALCIUM (test code = 10.1 mg/dL 8.0-10.5 N CA) PROTHROMBIN [id number] 13:46:00 Test Item Value Reference Range Interpretation Comments PROTHROMBIN TIME 28.0 SECONDS 9.3-12.9 H PATIENT (test code = PTP) INTERNATIONAL NORMAL 2.5 0.8-1.2 H TARGET INR BY RATIO (test code = INDICATIO N Indication INR) INR1. Prophylax is of venous thrombos is 2.0 - 3.0 (orthoped ic surgery), Proph ylaxis of venous throm bosis (other than hig h-risk surgery), Treat ment of Deep Vein Thrombosis/Pulm onary Embolism, Preve ntion of systemic emb olism - Tissue heart va lves, Acute Myocardia l Infarction (to prevent systemic emboli sm), Valvular heart disease, Atrial Fibrillation, Bileaflet mecha nical valve in aortic position.2. Mec hanical prosthetic valv es (high risk), 2. 5 - 3.5 Presence of Lup us Anticoagulant o r Antiphospholipi d Antibodies, Pre vention of systemic emb olism - Acute Myocardia l Infarction (to prevent recurrent infar ct). CBC W/AUTO [id number] 13:36:00 Test Item Value Reference Range Interpretation Comments WHITE BLOOD CELL (test code = 8.4 x10 3/uL 4.5-11.0 N WBC) RED BLOOD CELL (test code = 4.19 x10 6/uL 3.54-5.02 N RBC) HEMOGLOBIN (test code = HGB) 13.0 g/dL 11.0-15.0 N HEMATOCRIT (test code = HCT) 41.8 % 33.0-45.0 N MEAN CELL VOLUME (test code = 99.8 fL 81.0-99.0 H MCV) MEAN CELL HGB (test code = MCH) 31.0 pg 27.0-33.0 N MEAN CELL HGB CONCETRATION 31.1 g/dL 33.0-37.0 L (test code = MCHC) RED CELL DISTRIBUTION WIDTH CV 12.7 % 11.5-14.5 N (test code = RDW) RED CELL DISTRIBUTION WIDTH SD 46.7 fL 37.0-54.0 N (test code = RDW-SD) PLATELET COUNT (test code = 290 x10 3/uL 150-400 N PLT) MEAN PLATELET VOLUME (test code 9.6 fL 7.0-9.0 H = MPV) NEUTROPHIL % (test code = NT%) 67.3 % 56.0-77.0 N IMMATURE GRANULOCYTE % (test 0.5 % 0.0-2.0 N code = IG%) LYMPHOCYTE % (test code = LY%) 17.9 % 14.0-32.0 N MONOCYTE % (test code = MO%) 10.4 % 4.8-9.0 H EOSINOPHIL % (test code = EO%) 3.2 % 0.3-3.7 N BASOPHIL % (test code = BA%) 0.7 % 0.0-2.0 N NUCLEATED RBC % (test code = 0.0 % 0-0 N NRBC%) NEUTROPHIL # (test code = NT#) 5.65 x10 3/uL 2.0-7.6 N IMMATURE GRANULOCYTE # (test 0.04 x10 3/uL 0.00-0.03 H code = IG#) LYMPHOCYTE # (test code = LY#) 1.50 x10 3/uL 1.0-3.8 N MONOCYTE # (test code = MO#) 0.87 x10 3/uL 0.1-0.8 H EOSINOPHIL # (test code = EO#) 0.27 x10 3/uL 0.0-0.2 H BASOPHIL # (test code = BA#) 0.06 x10 3/uL 0.0-0.2 N NUCLEATED RBC # (test code = 0.00 x10 3/uL 0.0-0.1 N NRBC#) MANUAL DIFF REQUIRED (test code NO = MDIFF) [id number] 10:58:00 Test Item Value Reference Range Interpretation Comments ACT-ISTAT (test code 386 SEC 74-137 H Perform ed by certified = ACTI) 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 Positiv e results do not rule out bacterial infection or co -infection with other viru ses. Negative result s do not preclude SARS-C oV-2 infection andsh ould not be used as the chey e basis for patient managementdecis ions. Negative result s must be combined with otherclinical observations, p atient history, and epidemiological information . Detection of SARS-CoV-2 RNA may be affe cted bysample collec tion methods, storag e conditions, and /or stageof infection. Yuli l RNA mutations, vacc inations, antiviraltherap eutics, antibiotics, chemotherapeuti c orimmunosuppres artur drugs have not been e valuated for effectson d etection. Results are for the identification of SARS-CoV-2 RNA usingreal-time (RT) polymerase sanchez n reaction (PCR) technolog yfor the qualitative det ection of nucleic acids f rom [id number] v irus and diagnosis of SA RS-CoV-2 virusinfection. It is an Emergency Use Authorization ( EUA) testauthorized by the U.S. FDA. BASIC METABOLIC [id number] 13:51:00 Test Item Value Reference Range Interpretation Comments SODIUM (test code = NA) 143 mEq/L 134-147 N POTASSIUM (test code = 4.2 mEq/L 3.4-5.0 N K) CHLORIDE (test code = 105 mEq/L 100-108 N CL) CARBON DIOXIDE (test 30 mEq/l 21-33 N code = CO2) ANION GAP (test code = 12 0-20 N GAP) GLUCOSE (test code = 85 mg/dL 70-110 N GLU) BLOOD UREA NITROGEN 22 mg/dL 7-18 H (test code = BUN) GLOMERULAR FILTRATION 52.4 70-80 L Units of measure = RATE (test code = GFR) ml/mi n/1.73 m2 CREATININE (test code = 1.0 mg/dL 0.6-1.3 N CREAT) CALCIUM (test code = 10.1 mg/dL 8.0-10.5 N CA) [id number] 13:51:00 Test Item Value Reference Range Interpretation Comments PREALBUMIN (test code = PREALB) 25.8 mg/dL 16.0-40.0 N PROTHROMBIN [id number] 13:44:00 Test Item Value Reference Range Interpretation Comments PROTHROMBIN TIME 21.0 SECONDS 9.3-12.9 H PATIENT (test code = PTP) INTERNATIONAL NORMAL 1.9 0.8-1.2 H TARGET INR BY RATIO (test code = INDICATIO N Indication INR) INR1. Prophylax is of venous thrombos is 2.0 - 3.0 (orthoped ic surgery), Proph ylaxis of venous throm bosis (other than hig h-risk surgery), Treat ment of Deep Vein Thrombosis/Pulm onary Embolism, Preve ntion of systemic emb olism - Tissue heart va lves, Acute Myocardia l Infarction (to prevent systemic emboli sm), Valvular heart disease, Atrial Fibrillation, Bileaflet mecha nical valve in aortic position.2. Mec hanical prosthetic valv es (high risk), 2. 5 - 3.5 Presence of Lup us Anticoagulant o r Antiphospholipi d Antibodies, Pre vention of systemic emb olism - Acute Myocardia l Infarction (to prevent recurrent infar ct). CBC W/AUTO [id number] 13:35:00 Test Item Value Reference Range Interpretation Comments WHITE BLOOD CELL (test code = 8.4 x10 3/uL 4.5-11.0 N WBC) RED BLOOD CELL (test code = 4.49 x10 6/uL 3.54-5.02 N RBC) HEMOGLOBIN (test code = HGB) 14.4 g/dL 11.0-15.0 N HEMATOCRIT (test code = HCT) 44.5 % 33.0-45.0 N MEAN CELL VOLUME (test code = 99.1 fL 81.0-99.0 H MCV) MEAN CELL HGB (test code = MCH) 32.1 pg 27.0-33.0 N MEAN CELL HGB CONCETRATION 32.4 g/dL 33.0-37.0 L (test code = MCHC) RED CELL DISTRIBUTION WIDTH CV 13.2 % 11.5-14.5 N (test code = RDW) RED CELL DISTRIBUTION WIDTH SD 48.1 fL 37.0-54.0 N (test code = RDW-SD) PLATELET COUNT (test code = 258 x10 3/uL 150-400 N PLT) MEAN PLATELET VOLUME (test code 10.0 fL 7.0-9.0 H = MPV) NEUTROPHIL % (test code = NT%) 62.7 % 56.0-77.0 N IMMATURE GRANULOCYTE % (test 0.2 % 0.0-2.0 N code = IG%) LYMPHOCYTE % (test code = LY%) 22.1 % 14.0-32.0 N MONOCYTE % (test code = MO%) 11.2 % 4.8-9.0 H EOSINOPHIL % (test code = EO%) 3.1 % 0.3-3.7 N BASOPHIL % (test code = BA%) 0.7 % 0.0-2.0 N NUCLEATED RBC % (test code = 0.0 % 0-0 N NRBC%) NEUTROPHIL # (test code = NT#) 5.28 x10 3/uL 2.0-7.6 N IMMATURE GRANULOCYTE # (test 0.02 x10 3/uL 0.00-0.03 N code = IG#) LYMPHOCYTE # (test code = LY#) 1.86 x10 3/uL 1.0-3.8 N MONOCYTE # (test code = MO#) 0.94 x10 3/uL 0.1-0.8 H EOSINOPHIL # (test code = EO#) 0.26 x10 3/uL 0.0-0.2 H BASOPHIL # (test code = BA#) 0.06 x10 3/uL 0.0-0.2 N NUCLEATED RBC # (test code = 0.00 x10 3/uL 0.0-0.1 N NRBC#) MANUAL DIFF REQUIRED (test code NO = MDIFF)
[2022-08-11 14:47] LABS: Absolute Lymphocytes (CBC) 2.1 K/uL (0.7-4.9); Hematocrit 38.9 % (36.0-45.0); Lymphocytes % 20.5 % (15.3-44.8); MCV 92.7 fL (80-100); MPV 8.2 fL (7.6-11.3); RBC Red Blood Cell Count 4.19 M/uL (3.86-4.86)
[2022-08-11 14:52] LABS: Protime INR 0.86
--- NOTE | 2022-08-11 14:58 | RAD REPORT ---
EXAM DESCRIPTION: RAD - Chest Single View - 08/11/2022 2:51 pm CLINICAL HISTORY: rectal bleeding COMPARISON: Chest Single View dated 03/21/2022; Chest Single View dated 03/18/2022; Chest Single View dated 03/16/2022; Chest Single View dated 12/14/2020 FINDINGS: Lines: Pacemaker. Lungs: No evidence of edema or pneumonia. Pleural: No significant pleural effusions or pneumothorax. Cardiac: The heart size is within normal limits. Mediastinum: Within normal limits. Bones: No acute fractures. Other: None IMPRESSION: No acute cardiopulmonary disease.
[2022-08-11] MEDS ORDERED: DICYCLOMINE HCL 20 MG/2 ML AMP IM ONE (15:22)
--- NOTE | 2022-08-11 15:37 | RAD REPORT ---
EXAM DESCRIPTION: CTAbdomen Pelvis W Contrast - 08/11/2022 3:10 pm CLINICAL HISTORY: rectal bleeding COMPARISON: No comparisons TECHNIQUE: CT of the abdomen and pelvis was performed. All CT scans are performed using dose optimization technique as appropriate and may include automated exposure control or mA/KV adjustment according to patient size. FINDINGS: Lower chest: Pacemaker. Probable atelectasis or scarring at the left lung base. Liver: Too small to characterize liver lesions which are statistically benign Biliary: No biliary ductal dilatation. Stomach: No significant focal abnormality. Duodenum: No significant focal abnormality. Pancreas: No significant abnormality. Spleen: No significant abnormality. Adrenal: No suspicious lesions. Kidney/ureter: No hydronephrosis. No renal calculi. Retroperitoneum: No retroperitoneal adenopathy. Vascular: No aneurysm. Atherosclerosis. Bowel: Diverticulosis without diverticulitis.. Normal appendix. Peritoneum: No ascites or free air. Bladder: Grossly unremarkable. Reproductive: No adnexal masses. Hysterectomy. Bones: No acute fracture. L4 through S1 fusion. Other: n/a IMPRESSION: No acute intra-abdominal or pelvic finding. Specifically, no specific findings to explai n gastrointestinal bleeding.
[2022-08-11 16:05] LABS: Magnesium 2.6 mg/dL (1.8-2.4); Potassium 3.7 mmol/L (3.5-5.1); Troponin High Sensitivity 11.9 pg/mL (<58.9)
--- NOTE | 2022-08-11 18:39 | ER ---
Nurse's Notes [facility] Name: Bismark Clayton Age: 86 yrs Sex: Female : 1935 Arrival Date: 08/11/2022 Time: 13:10 Bed 8 Private MD: Diagnosis: Other hemorrhoids;Lower abdominal pain, unspecified Presentation: 08/11 13:18 Chief complaint: Bright rectal bleeding x 3 days. Coronavirus screen: At this time, the ss client does not indicate any symptoms associated with coronavirus-19. Ebola Screen: No symptoms or risks identified at this time. Initial Sepsis Screen: Does the patient meet any 2 criteria? No. Patient's initial sepsis screen is negative. Does the patient have a suspected source of infection? No. Patient's initial sepsis screen is negative. Risk Assessment: Do you want to hurt yourself or someone else? Patient reports no desire to harm self or others. Onset of symptoms was August 09, 2022. 13:18 Method Of Arrival: Ambulatory 13:18 Acuity: GAURAV 3 ss Historical: - Allergies: 13:19 Mobic (ringing in ears, balance not good); ss 13:19 Morphine; ss - PMHx: 13:19 Diverticulitis; Headaches; Hyperlipidemia; Migraines; neuropathy; Osteoporosis; Sleep ss Apnea; - PSHx: 13:19 pacemaker; ss Screenin:44 Abuse screen: Denies threats or abuse. Nutritional screening: No deficits noted. vg1 Tuberculosis screening: No symptoms or risk factors identified. Fall Risk No fall in past 12 months (0 pts). No secondary diagnosis (0 pts). IV access (20 points). Ambulatory Aid- Crutches/Cane/Walker (15 pts). Gait- Normal/Bed Rest/Wheelchair (0 pts) Mental Status- Oriented to own ability (0 pts). Total Emerson Fall Scale indicates No Risk (0-24 pts). Assessment: 15:20 General: Appears in no apparent distress. uncomfortable, Behavior is calm, cooperative. vg1 Pain: Complains of pain in right lower quadrant and left lower quadrant Pain currently is 2 out of 10 on a pain scale. Pain began 2-3 days ago. Neuro: Level of Consciousness is awake, alert, obeys commands, Oriented to person, place, time, situation. Cardiovascular: Patient's skin is warm and dry. Respiratory: Airway is patent Respiratory effort is even, unlabored. GI: Abdomen is round non-distended, Last BM was August 11, 2022. Patient currently denies nausea, vomiting. : No signs and/or symptoms were reported regarding the genitourinary system. EENT: No signs and/or symptoms were reported regarding the EENT system. Derm: Skin is pink, warm \T\ dry. Musculoskeletal: Circulation, motion, and sensation intact. 16:20 Reassessment: Patient appears in no apparent distress at this time. No changes from vg1 previously documented assessment. Patient and/or family updated on plan of care and expected duration. Pain level reassessed. Patient is alert, oriented x 3, equal unlabored respirations, skin warm/dry/pink. 17:20 Reassessment: Patient appears in no apparent distress at this time. Patient and/or vg1 family updated on plan of care and expected duration. Pain level reassessed. Patient is alert, oriented x 3, equal unlabored respirations, skin warm/dry/pink. Patient denies pain at this time. 18:20 Reassessment: Patient appears in no apparent distress at this time. Patient and/or vg1 family updated on plan of care and expected duration. Pain level reassessed. Patient is alert, oriented x 3, equal unlabored respirations, skin warm/dry/pink. Patient denies pain at this time. 18:46 Reassessment: Pt currently up for d/c, waiting for UA. vg1 Vital Signs: 13:18 BP 133 / 81; Pulse 69; Resp 16; Temp 97.2; Pulse Ox 97% on R/A; Weight 68.04 kg; Height ss 5 ft. 3 in. (160.02 cm); Pain 8/10; 15:45 BP 135 / 96; Pulse 97; Resp 16; Pulse Ox 95% on R/A; vg1 16:30 BP 115 / 84; Pulse 82; Resp 20; Pulse Ox 95% on R/A; vg1 17:15 BP 119 / 77; Pulse 88; Resp 18; Pulse Ox 96% on R/A; vg1 18:15 BP 123 / 80; Pulse 95; Resp 20; Pulse Ox 96% on R/A; vg1 13:18 Body Mass Index 26.57 (68.04 kg, 160.02 cm) ED Course: 13:10 Patient arrived in ED. as 13:19 Triage completed. 13:19 Arm band placed on. 13:54 Omar Galicia PA is PHCP. cp 13:54 Fer Fitzpatrick MD is Attending Physician. cp 14:52 XRAY Chest (1 view) In Process Unspecified. EDMS 15:09 Demarcus Jones, RN is Primary Nurse. jd3 15:12 CT Abd/Pelvis - IV Contrast Only In Process Unspecified. EDMS 15:14 Primary Nurse role handed off by Demarcus Jones, RN vg1 15:14 Myla Lujan, RN is Primary Nurse. vg1 15:44 Patient has correct armband on for positive identification. Placed in gown. Bed in low vg1 position. Call light in reach. Side rails up X2. Adult w/ patient. Client placed on continuous cardiac and pulse oximetry monitoring. NIBP monitoring applied. 15:44 Inserted saline lock: 22 gauge in left antecubital area, using aseptic technique. vg1 ,using aseptic technique. completed by ED staff. 19:05 No provider procedures requiring assistance completed. IV discontinued, intact, vg1 bleeding controlled, No redness/swelling at site. Pressure dressing applied. Administered Medications: 15:52 Drug: Dicyclomine 20 mg Route: IM; Site: right gluteus; vg1 18:47 Follow up: Response: No adverse reaction vg1 Medication: 15:44 VIS not applicable for this client. vg1 Outcome: 18:38 Discharge ordered by MD. cp 19:05 Discharged to home ambulatory. vg1 19:05 Condition: good 19:05 Discharge instructions given to patient, Instructed on discharge instructions, follow up and referral plans. medication usage, Demonstrated understanding of instructions, follow-up care, medications, Prescriptions given X 2. 19:06 Patient left the ED. vg1 Signatures: Dispatcher [employer] Lisandra Bravo Shelby, RN RN Omar Galicia PA PA cp Davies, Jonathon, GINO RN Myla Hickey RN RN vg1
--- NOTE | 2022-08-11 18:39 | EDPHYS ---
Physician Documentation [facility] Name: Bismark Clayton Age: 86 yrs Sex: Female : 1935 Arrival Date: 08/11/2022 Time: 13:10 Bed 8 Private MD: ED Physician Fer Fitzpatrick HPI: 08/11 14:25 This 86 yrs old Female presents to ER via Ambulatory with complaints of Rectal Bleeding.cp 14:25 The patient presents to the emergency department with bleeding from the rectum/anus, cp that is moderate. Onset: The symptoms/episode began/occurred 3 day(s) ago. Context: the patient Patient reports history of diverticulitis and hemorrhoids. Associate signs and symptoms: Pertinent positives: abdominal pain in the right lower quadrant and left lower quadrant, Pertinent negatives: constipation, diarrhea, fever, vomiting. Patient reports noticing bright red colored blood with bowel movement over past 3 days. Historical: - Allergies: 13:19 Mobic (ringing in ears, balance not good); ss 13:19 Morphine; ss - PMHx: 13:19 Diverticulitis; Headaches; Hyperlipidemia; Migraines; neuropathy; Osteoporosis; Sleep ss Apnea; - PSHx: 13:19 pacemaker; ss ROS: 14:30 Constitutional: Negative for body aches, chills, fever, poor PO intake. cp 14:30 Eyes: Negative for injury, pain, redness, and discharge. cp 14:30 ENT: Negative for ear pain, sore throat, difficulty swallowing, difficulty handling secretions. 14:30 Cardiovascular: Negative for chest pain, edema, palpitations. 14:30 Respiratory: Negative for cough, shortness of breath, wheezing. 14:30 Abdomen/GI: Positive for abdominal pain, abdominal cramps, rectal bleeding, Negative for vomiting, diarrhea, constipation. 14:30 Back: Negative for pain at rest, pain with movement. 14:30 Neuro: Negative for altered mental status, dizziness, headache, syncope, weakness. 14:30 All other systems are negative. Exam: 14:35 Constitutional: The patient appears in no acute distress, alert, awake, non-toxic, well cp developed, well nourished. 14:35 Head/Face: Normocephalic, atraumatic. cp 14:35 Eyes: Periorbital structures: appear normal, Conjunctiva: normal, no exudate, no injection, Sclera: no appreciated abnormality, Lids and lashes: appear normal, bilaterally. 14:35 ENT: External ear(s): are unremarkable, Nose: is normal, Mouth: Lips: moist, Oral mucosa: pink and intact, moist, Posterior pharynx: Airway: no evidence of obstruction, patent. 14:35 Chest/axilla: Inspection: normal. 14:35 Cardiovascular: Rate: normal, Rhythm: regular. 14:35 Respiratory: the patient does not display signs of respiratory distress, Respirations: normal, no use of accessory muscles, no retractions, labored breathing, is not present, Breath sounds: are clear throughout, no decreased breath sounds, no stridor, no wheezing. 14:35 Abdomen/GI: Inspection: abdomen appears normal, Bowel sounds: active, all quadrants, Palpation: soft, in all quadrants, mild abdominal tenderness, in the right lower quadrant and left lower quadrant, rebound tenderness, is not appreciated, voluntary guarding, is not appreciated, involuntary guarding, is not appreciated, Rectal exam: Stool: brown, hemorrhoid(s), external, with inflammation, without thrombosis, mild pain to palpation, scant bleeding noted. 14:35 Back: pain, is absent, ROM is normal. 14:35 Neuro: Orientation: to person, place \T\ time. Mentation: is normal, Motor: moves all fours, strength is normal, Sensation: is normal. 15:50 ECG was reviewed by the Attending Physician. cp Vital Signs: 13:18 BP 133 / 81; Pulse 69; Resp 16; Temp 97.2; Pulse Ox 97% on R/A; Weight 68.04 kg; Height ss 5 ft. 3 in. (160.02 cm); Pain 8/10; 15:45 BP 135 / 96; Pulse 97; Resp 16; Pulse Ox 95% on R/A; vg1 16:30 BP 115 / 84; Pulse 82; Resp 20; Pulse Ox 95% on R/A; vg1 17:15 BP 119 / 77; Pulse 88; Resp 18; Pulse Ox 96% on R/A; vg1 18:15 BP 123 / 80; Pulse 95; Resp 20; Pulse Ox 96% on R/A; vg1 13:18 Body Mass Index 26.57 (68.04 kg, 160.02 cm) MDM: 14:01 Patient medically screened. 18:37 Data reviewed: vital signs, nurses notes, lab test result(s), radiologic studies, CT cp scan. 18:37 Differential diagnosis: hemorrhoids, abscess, lower GI bleed, upper GI bleed. cp Counseling: I had a detailed discussion with the patient and/or guardian regarding: the historical points, exam findings, and any diagnostic results supporting the discharge/admit diagnosis, lab results, the need for outpatient follow up, a record maker, to return to the emergency department if symptoms worsen or persist or if there are any questions or concerns that arise at home. Response to treatment: the patient's symptoms have markedly improved after treatment, and as a result, I will discharge patient. ED course: VSS. H/H wnl. Will discharge to home for continued monitoring. 08/11 14:17 Order name: Basic Metabolic Panel; Complete Time: 18:08 08/11 18:08 Interpretation: Normal except: BUN 27; GFR 60. 08/11 14:17 Order name: CBC with Diff; Complete Time: 15:47 08/11 16:02 Interpretation: Reviewed. 08/11 14:17 Order name: Magnesium; Complete Time: 18:08 08/11 18:34 Interpretation: Reviewed. 08/11 14:17 Order name: NT PRO-BNP; Complete Time: 18:08 08/11 18:34 Interpretation: Reviewed. 08/11 14:17 Order name: PT-INR; Complete Time: 15:47 08/11 14:17 Order name: Troponin HS; Complete Time: 18:08 08/11 18:35 Interpretation: Reviewed. 08/11 14:17 Order name: XRAY Chest (1 view); Complete Time: 15:47 08/11 14:17 Order name: EKG; Complete Time: 14:18 08/11 14:17 Order name: CT Abd/Pelvis - IV Contrast Only; Complete Time: 15:47 08/11 14:17 Order name: Ptt, Activated; Complete Time: 15:47 08/11 15:47 Interpretation: Reviewed. 08/11 14:17 Order name: Urine Microscopic Only 08/11 16:29 Order name: CREATININE WHOLE BLOOD; Complete Time: 18:08 EDMS 08/11 18:56 Order name: Urine Dipstick-Ancillary EDMS 08/11 14:17 Order name: Cardiac monitoring; Complete Time: 15:10 08/11 14:17 Order name: EKG - Nurse/Tech; Complete Time: 15:41 08/11 14:17 Order name: IV Saline Lock; Complete Time: 15:09 08/11 14:17 Order name: Labs collected and sent; Complete Time: 15:09 08/11 14:17 Order name: O2 Per Protocol; Complete Time: 15:09 08/11 14:17 Order name: O2 Sat Monitoring; Complete Time: 15:09 08/11 14:17 Order name: Urine Dipstick-Ancillary (obtain specimen); Complete Time: 18:58 08/11 14:54 Order name: Labs - recollect needed: recollect lightgreen hemolyzed; Complete Time: eb 15:41 EC:50 Rate is 92 beats/min. Rhythm is irregular. QRS interval is normal. QT interval is cp normal. Interpreted by me. Reviewed by me. Administered Medications: 15:52 Drug: Dicyclomine 20 mg Route: IM; Site: right gluteus; vg1 18:47 Follow up: Response: No adverse reaction vg1 Disposition Summary: 08/11/22 18:38 Discharge Ordered Location: Home cp Problem: new cp Symptoms: have improved cp Condition: Stable cp Diagnosis - Other hemorrhoids cp - Lower abdominal pain, unspecified cp Followup: cp - With: Private Physician - When: 2 - 3 days - Reason: Recheck today's complaints Discharge Instructions: - Discharge Summary Sheet cp - Abdominal Pain, Adult cp - High-Fiber Diet cp - Hemorrhoids cp Forms: - Medication Reconciliation Form cp - Thank You Letter cp - Antibiotic Education cp - Prescription Opioid Use cp Prescriptions: - Anusol-HC 25 mg Rectal Suppository - insert 1 suppository by RECTAL route every 12 hours As needed; 20 suppository; cp Refills: 0, Product Selection Permitted - dicyclomine 20 mg Oral Tablet - take 1 tablet by ORAL route 4 times per day; 30 tablet; Refills: 0, Product cp Selection Permitted Signatures: Dispatcher [facility] Chaya Bess RN RN Omar Reyes PA PA cp Botello, Elizabeth eb Garcia, Victoria RN RN vg1
[2022-08-11 18:55] LABS: Urine Blood 1+ (Negative); Urine Glucose Negative (Negative); Urine Protein Negative (Negative); Urine Specific Gravity 1.015 (1.005-1.030)
[2022-08-11 19:49] VITALS: TEMP 97.2
[2022-08-11 19:53] VITALS: O2SAT 96
[2022-08-11 19:54] VITALS: BP 123/80
[2022-08-11 20:11] LABS: Urine Crystals Unidentified Few /HPF (None Seen)
--- NOTE | 2022-08-14 15:15 | EKG ---
Test Date: 2022-08-11 Test Time: 15:44:01 Service Station Attendant: MEASUREMENT RESULTS: Intervals: Rate: 92 ND: QRSD: 82 QT: 404 QTc: 499 [place]: P: ND: QRS: 77 T: 65 INTERPRETIVE STATEMENTS: Demand pacemaker, interpretation is based on intrinsic rhythm Atrial fibrillation with premature ventricular or aberrantly conducted complexes Prolonged QT Abnormal ECG Compared to ECG 03/21/2022 04:46:20 Ventricular premature complex(es) now present Prolonged QT interval now present Sinus rhythm no longer present T-wave abnormality no longer present Electronically Signed On 08-14-22 15:10:44 FLATWORK WASHER by Александр Briggs
== END 2022-08-11 19:06 | disposition home or self-care (01) ==
LOC: SUPCPDRO 12:59 → ER 12:59
DX: K64.8 Other hemorrhoids (principal); R10.30 Lower abdominal pain, unspecified; Z95.0 Presence of cardiac pacemaker; Z88.5 Allergy status to narcotic agent
CPT/HCPCS: 93005; 85025; 80048; 36415; 83735; 85610; 82565; 85730; 84484; 83880; 74177; 71045; 96372; 99284; Q9967; J0500; 81003; 81015

== ENCOUNTER 2023-02-12 11:49 | Emergency (ER) | payer OTHER ==
--- OUTSIDE RECORDS SUMMARY | 2023-02-12 12:07 | XMS REPORT | Continuity of Care Document ---
:1935 Author Organization [facility] t Address [address] [place] [address] Care Team Providers Name Role Phone Asked, No Pcp Primary Care Physician Unavailable Александр Briggs Attending Clinician Unavailable Only, Adc Test Attending Clinician Unavailable Doctor Unassigned, [place] Attending Clinician Unavailable Александр Briggs Admitting Clinician Unavailable Payers Payer Name Policy Type Policy Number Effective Date Expiration Date Ros sarmiento MEDICARE PART A [id number] 1999 \T\ B 00:00:00 [employer] INDEMNITY [id number] 2000 00:00:00 Problems Condition Condition Condition Status [...] 10-31 Clear TEMPORARY 00:00: [place] PARALYSIS 00 [facility] Diphenhy Propensi Active Unknown 2018-10 Metho di [...] Un malka INGREDI 0-24 ity of 00:00: [address] hydrocod DA Active [place] FLU LIKE 2008-10 [facility] one SYMPTOMS 0-01 Clear 00:00: [place] 00 [facility] predniso DA Active [place] 2008-10 [facility] ne 0-01 Clear 00:00: [place] 00 [facility] tetracyc DA Active [place] 2008-10 [facility] line 0-01 Clear 00:00: [place] 00 [facility] gentamic DA Active [place] 2008-10 [facility] in 0-01 Clear 00:00: [place] 00 [facility] Social History Social Habit Start Date Stop Date Quantity Comments Source Gender identity [facility] Sexual [facility] History of Social 2019-08-11 2019-08-11 [facility] function 00:00:00 00:00:00 Sex Ass[birth year] [facility] 00:00:00 00:00:00 Smoking Status Start Date Stop Date Source Tobacco smoking consumption unknown [facility] Medications Ordered Filled Start Stop Current Ordering Indication Dosage Frequency Signature Comments Components Source Medication Medication Date Date Medication? Clinician (SIG) Name Name furosemide 2018-10 Yes 40mg Q24H Take 40 mg M [facility] (LASIX) 40 1-[address] mg tablet 10:41: daily [facility] needed. l furosemide 2018-10 Yes 40mg Q24H Take 40 [...] (twelve) emulsion hours. sotalol 2018-10 Yes 40mg [id number] Take 40 mg [facility] (BETAPACE) 1-12 [id number] mouth [address] 80 MG 10:41: [...] mg 10:41: daily. Hospita tablet 45 l pregabalin 2018-10 Yes 75mg QD Take [...] (twelve) emulsion hours. sotalol 2018-10 Yes 40mg Q.[id number] Take 40 mg [facility] (BETAPACE) 1-12 [id number] by mouth [address] 80 MG 10:41: [...] (twelve) emulsion hours. sotalol 2018-10 Yes 40mg Q.[id number] Take 40 mg [facility] (BETAPACE) 1-12 [id number] by mouth [address] 80 MG 10:41: [...] HOUR) 180-240 mg per 24 hr tablet fexofenadin 2018-10 Yes 1{tbl} QD Take 1 Me thodi e-pseudoepH 1-12 tablet by rine 10:41: mouth Hospita (CHRIS-D 45 daily. l 24 HOUR) 180-240 mg per 24 hr tablet Procedures Procedure Date / Time Performed Performing Clinician Cele kern [id number] 2021-11-02 00:00:00 RICH [facility] Plan of Care Planned Activity Planned Date Details Comments Source Future Scheduled 2023-01-04 COVID-19 VACCINE (#1) [facility] Hospital Test 19:22:11 [code = COVID-19 VACCINE (#1)] Future Scheduled 2023-01-04 SHINGLES VACCINES (1 Met [facility] Hospital Test 19:22:11 of 2) [code = SHINGLES VACCINES (1 of 2)] Future Scheduled 2023-01-04 65+ PNEUMOCOCCAL [facility] Test 19:22:11 VACCINE (1 - PCV) [code = 65+ PNEUMOCOCCAL VACCINE (1 - PCV)] Future Scheduled 2023-01-04 INFLUENZA VACCINE Method [facility] Hospital Test 19:22:11 [code = INFLUENZA VACCINE] Future Scheduled 2022-08-03 HEPATITIS B VACCINES Met [facility] Test 19:25:23 (1 of 3 - 3-dose series) [code = HEPATITIS B VACCINES (1 of 3 - 3-dose series)] Future Scheduled 2022-08-03 COVID-19 VACCINE (#1) [facility] Hospital Test 19:25:23 [code = COVID-19 VACCINE (#1)] Future Scheduled 2022-08-03 SHINGLES VACCINES (1 Met [facility] Test 19:25:23 of 2) [code = SHINGLES VACCINES (1 of 2)] Future Scheduled 2022-08-03 65+ PNEUMOCOCCAL [facility] Test 19:25:23 VACCINE (1 - PCV) [code = 65+ PNEUMOCOCCAL VACCINE (1 - PCV)] Future Scheduled 2022-08-03 INFLUENZA VACCINE Method [facility] Hospital Test 19:25:23 [code = INFLUENZA VACCINE] Future Scheduled 2021-09-21 COVID-19 VACCINE (1) [facility] Test 12:31:11 [code = COVID-19 VACCINE (1)] Future Scheduled 2021-09-21 SHINGLES VACCINES (#1) [facility] Hospital Test 12:31:11 [code = SHINGLES VACCINES (#1)] Future Scheduled 2021-09-21 65+ PNEUMOCOCCAL [facility] Hospital Test 12:31:11 VACCINE (1 of 1 - PPSV23) [code = 65+ PNEUMOCOCCAL VACCINE (1 of 1 - PPSV23)] Future Scheduled 2021-09-21 INFLUENZA VACCINE [facility] Hospital Test 12:31:11 [code = INFLUENZA VACCINE] Encounters Start End Encounter Admission Attending Care Care Encounter Source Date/Time Date/Time Type Type Clinicians Facility Department ID 2022-01-04 2022-01-04 Inpatient TANYA DominguezCL OUTD [id number] [facility] 05:18:00 05:18:00 Александр 40 [facility] 2021-11-02 2021-11-02 Inpatient VIRAL Dominguez INTE.02 [id number] [facility] 12:31:00 18:10:00 Александр 44 [facility] 2020-08-23 2020-08-23 Laboratory Only, Adc [facility] [id number] 11:51:19 12:06:19 Only Test [place] 350.1.13.10 [place] [id number] [place] [id number] [facility] 2020-08-23 2020-08-23 Outpatient R [facility] [id number] [facility] 12:00:00 12:00:00 [facility]y of [facility] 2020-08-23 2020-08-23 Orders Doctor TAMMY [id number] 00:00:00 00:00:00 Only Unassigned, JENA 350.1.13.10 [place] [id number] Results Test Description Test Time Test Comments Results Result Comments Source Novel Coronavirus 2019 Inhouse 2022-01-03 01:14:00 Test Item Value Reference Range Interpretation Comme nts Novel Coronavirus 2018 Negative Negative Posit bola results are indicative of the Inhouse (test code = presenc e [id number] RNA, clinical COVNONPUI) correlation wit h patient [...] qualitative detection of nucleic acid s from auhQCNM-VsG-1 virus and diagn osis of SARS-CoV-2 virusinfection. It is an Emergency Use Authorization ( EUA) testauthorized by the U.S. FDA. BASIC METABOLIC [id number] 13:59:00 Test Item Value Reference Range Interpretation [...] = 10.1 mg/dL 8.0-10.5 N CA) PROTHROMBIN [id number] 13:46:00 Test Item Value Reference Range Interpretation [...] (to prevent recurrent infar ct). CBC W/AUTO [id number] 13:36:00 Test Item Value Reference Range Interpretation [...] DIFF REQUIRED (test code NO = MDIFF) [id number] 10:58:00 Test Item Value Reference Range Interpretation Comments ACT-ISTAT (test code 386 SEC 74-137 H Perform ed by certified = ACTI) oven operator automatic at [facility] Novel Coronavirus 2018 [id number] 08:39:00 Test Item Value Reference Range Interpretation [...] storag e conditions, and /or stageof infection. Yuil l RNA mutations, vacc inations, antiviraltherap eutics, antibiotics, chemotherapeuti c orimmunosuppres artur drugs have not been e valuated for effectson d etection. Results are for the identification of SARS-CoV-2 RNA usingreal-time (RT) polymerase sanchez n reaction (PCR) technolog yfor the qualitative det ection of nucleic acids f rom [id number] v irus and diagnosis of SA RS-CoV-2 virusinfection. It is an Emergency Use Authorization ( EUA) testauthorized by the U.S. FDA. BASIC METABOLIC [id number] 13:51:00 Test Item Value Reference Range Interpretation [...] code = 10.1 mg/dL 8.0-10.5 N CA) [id number] 13:51:00 Test Item Value Reference Range Interpretation Comments PREALBUMIN (test code = PREALB) 25.8 mg/dL 16.0-40.0 N PROTHROMBIN [id number] 13:44:00 Test Item Value Reference Range Interpretation [...] (to prevent recurrent infar ct). CBC W/AUTO [id number] 13:35:00 Test Item Value Reference Range Interpretation [...]
--- NOTE | 2023-02-12 12:51 | RAD REPORT ---
EXAM DESCRIPTION: RAD - Chest Single View - 02/12/2023 12:43 pm CLINICAL HISTORY: CHEST PAIN Chest pain. COMPARISON: Chest Single View dated 08/11/2022; Chest Single View dated 03/21/2022; Chest Single View dated 03/18/2022; Chest Single View dated 03/16/2022 FINDINGS: Portable technique limits examination quality. The lungs are grossly clear. The heart is normal in size. No displaced fractures.Dual lead pacer zachariah ce. IMPRESSION: No acute intrathoracic process suspected.
[2023-02-12 13:10] LABS: Absolute Lymphocytes (CBC) 1.7 K/uL (0.7-4.9); Hematocrit 36.5 % (36.0-45.0); Lymphocytes % 26.1 % (15.3-44.8); MCV 95.7 fL (80-100); MPV 7.7 fL (7.6-11.3); RBC Red Blood Cell Count 3.81 M/uL (3.86-4.86)
[2023-02-12] MEDS ORDERED: ASPIRIN 81 MG CHEWABLE TABLET ONE (13:31)
[2023-02-12 13:39] LABS: Albumin 3.7 g/dL (3.4-5.0); Bilirubin Direct 0.1 mg/dL (0-0.2); Bilirubin Indirect, Calculated 0.4 mg/dL (0.2-0.8); Bilirubin Total 0.5 mg/dL (0.2-1.0); Magnesium 2.1 mg/dL (1.6-2.4); Troponin High Sensitivity 14.9 pg/mL (<58.9)
[2023-02-12 13:52] LABS: Protime INR 0.94
--- NOTE | 2023-02-12 15:58 | EDPHYS ---
Physician Documentation [facility] Name: Bismark Clayton Age: 87 yrs Sex: Female : 1935 Arrival Date: 02/12/2023 Time: 11:49 Bed 16 Private MD: Noel Davis ED Physician Rodo Valencia HPI: 02/12 12:17 This 87 yrs old Female presents to ER via Unassigned with complaints of Chest Pain, ms3 Back Pain. 12:17 87-year-old female with past medical history of atrial fibrillation presents for left ms3 shoulder, left-sided neck, left chest pain that began yesterday. Patient states pain is an 8/10 described as being sharp. Patient denies nausea or vomiting. Patient endorses shortness of breath. Patient states she took Tylenol PM and ibuprofen without relief.. 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 - Social history:: Smoking status: Patient denies any tobacco usage or history of. ROS: 12:17 Constitutional: Negative for fever, and chills. Neck: Negative for injury, pain, and ms3 swelling, Respiratory: Negative for shortness of breath, cough, wheezing, and pleuritic chest pain. 12:17 MS/Extremity: Negative for injury and deformity, Skin: Negative for injury, rash, and discoloration. 12:17 Cardiovascular: Positive for chest pain. 12:17 All other systems are negative. Exam: 12:17 Constitutional: This is a well developed, well nourished patient who is awake, alert, ms3 and in no acute distress. Head/Face: Normocephalic, atraumatic. Neck: Trachea midline, no cervical lymphadenopathy. Supple, full range of motion without nuchal rigidity, or vertebral point tenderness. No Meningismus. Chest/axilla: Normal chest wall appearance and motion. Nontender with no deformity. Cardiovascular: Regular rate and rhythm with a normal S1 and S2. No gallops, murmurs, or rubs. Normal PMI, no JVD. No pulse deficits. Respiratory: Lungs have equal breath sounds bilaterally, clear to auscultation and percussion. No rales, rhonchi or wheezes noted. No increased work of breathing, no retractions or nasal flaring. Abdomen/GI: Soft, non-tender, with normal bowel sounds. No distension or tympany. No guarding or rebound. No evidence of tenderness throughout. Skin: Warm, dry with normal turgor. Normal color with no rashes, no lesions, and no evidence of cellulitis. MS/ Extremity: Pulses equal, no cyanosis. Neurovascular intact. Full, normal range of motion. 15:01 ECG was reviewed by the Attending Physician. ms3 Vital Signs: 13:15 BP 182 / 91; Pulse 64; Resp 18; Temp 98.2(O); Pulse Ox 98% ; eh3 14:15 BP 173 / 75; Pulse 60; Resp 16; Pulse Ox 98% on R/A; eh3 15:15 BP 146 / 90; Pulse 62; Resp 18; Pulse Ox 97% on R/A; eh3 MDM: 12:14 Patient medically screened. ms3 12:17 Differential diagnosis: abnormal EKG, acute myocardial infarction, coronary artery ms3 disease chest wall pain. 14:59 Management of patient was discussed with the following: Edge Trimmer Mechanic: Discussed case with ms3 Dr Briggs and he would like to get 2nd Troponin. If negative patient can follow up as outpatient. . 16:04 The patient was given aspirin in the Emergency Department. Data reviewed: vital signs, ms3 nurses notes, lab test result(s), EKG, radiologic studies, and as a result, I will discharge patient. I considered the following discharge prescriptions or medication management in the emergency department Medications were administered in the Emergency Department. See MAR. Independent interpretation of the following test(s) in the Emergency Department EKG: See my EKG interpretation above manager division: rate is 62 beats/min, Rhythm is regular, paced rhythm with no ectopy, Interpretation: normal rate, normal rhythm. Historians other than the Patient: Daughter/Son: Daughter. Counseling: I had a detailed discussion with the patient and/or guardian regarding: the historical points, exam findings, and any diagnostic results supporting the discharge/admit diagnosis, lab results, radiology results, the need for outpatient follow up, to return to the emergency department if symptoms worsen or persist or if there are any questions or concerns that arise at home. Response to treatment: the patient's symptoms have mildly improved after treatment, and as a result, I will discharge patient. Special discussion: Based on the patient's history, exam, and Dx evaluation, there is no indication for emergent intervention or inpatient Tx. It is understood by the patient/guardian that if the Sx's persist or worsen they need to return immediately for re-evaluation. 02/12 12:06 Order name: Basic Metabolic Panel; Complete Time: 13:55 ms3 02/12 12:06 Order name: CBC with Diff; Complete Time: 13:55 ms3 02/12 12:06 Order name: LFT's; Complete Time: 13:55 ms3 02/12 12:06 Order name: Magnesium; Complete Time: 13:55 ms3 02/12 12:06 Order name: NT PRO-BNP; Complete Time: 13:55 ms3 02/12 12:06 Order name: PT-INR; Complete Time: 13:55 ms3 02/12 12:06 Order name: Troponin HS; Complete Time: 13:55 ms3 02/12 14:59 Order name: Troponin High Sensitivity; Complete Time: 15:56 ms3 02/12 12:06 Order name: XRAY Chest (1 view); Complete Time: 13:17 ms3 02/12 12:06 Order name: EKG; Complete Time: 12:07 ms3 02/12 12:06 Order name: Cardiac monitoring; Complete Time: 13:30 ms3 02/12 12:06 Order name: EKG - Nurse/Tech; Complete Time: 13:30 ms3 02/12 12:06 Order name: Labs collected and sent; Complete Time: 14:05 ms3 02/12 12:06 Order name: O2 Per Protocol; Complete Time: 13:30 ms3 02/12 12:06 Order name: O2 Sat Monitoring; Complete Time: 13:30 ms3 EC:01 Rate is 60 beats/min. Rhythm is regular. Left axis deviation noted. Clinical ms3 impression: Atrial Paced. Interpreted by me. Reviewed by me. Administered Medications: 13:25 Drug: Aspirin PO Chewable Tablet 324 mg Route: PO; 3 14:30 Follow up: Response: No adverse reaction 3 15:56 Drug: HYDROcodone-acetaminophen PO 5 mg-325 mg 1 tabs Route: PO; [facility] 16:01 Follow up: Response: Medication administered at discharge. [facility] Disposition Summary: 02/12/23 15:58 Discharge Ordered Location: Home ms3 Condition: Stable ms3 Diagnosis - Pain in left shoulder ms3 - Chest pain, unspecified ms3 Followup: ms3 - With: Александр Briggs MD - When: 1 - 2 days - Reason: Recheck today's complaints Discharge Instructions: - Discharge Summary Sheet ms3 - Nonspecific Chest Pain, Adult ms3 - Musculoskeletal Pain ms3 Forms: - Medication Reconciliation Form ms3 - Thank You Letter ms3 - Antibiotic Education ms3 - Prescription Opioid Use ms3 Signatures: Dispatcher [employer] EDRhea Vivas RN RN Rodo Valencia DO DO ms3 Roxana Ang RN RN [facility] Corrections: (The following items were deleted from the chart) 16:01 12:06 IV Saline Lock ordered. ms3 [facility]
--- NOTE | 2023-02-12 15:58 | ER ---
Nurse's Notes [facility] Name: Bismark Clayton Age: 87 yrs Sex: Female : 1935 Arrival Date: 02/12/2023 Time: 11:49 Bed 16 Private MD: Noel Davis Diagnosis: Pain in left shoulder;Chest pain, unspecified Presentation: 02/12 13:00 Chief complaint: Patient states: intermittent sharp chest pain since yesterday. iw Coronavirus screen: At this time, the client does not indicate any symptoms associated with coronavirus-19. Ebola Screen: Patient negative for fever greater than or equal to 101.5 degrees Fahrenheit, and additional compatible Ebola Virus Disease symptoms Patient denies exposure to infectious person. Patient denies travel to an Ebola-affected area in the 21 days before illness onset. No symptoms or risks identified at this time. Risk Assessment: Do you want to hurt yourself or someone else? Patient reports no desire to harm self or others. Onset of symptoms was February 11, 2023. 13:00 Method Of Arrival: Ambulatory iw 13:00 Acuity: GAURAV 3 iw 13:15 Initial Sepsis Screen: Does the patient meet any 2 criteria? No. Patient's initial eh3 sepsis screen is negative. Does the patient have a suspected source of infection? No. Patient's initial sepsis screen is negative. 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 - Social history:: Smoking status: Patient denies any tobacco usage or history of. Screenin:[facility] ED Fall Risk Assessment (Adult) Score/Fall Risk Level 0 - 2 = Low Risk. Abuse eh3 screen: Denies threats or abuse. Denies injuries from another. Nutritional screening: No deficits noted. Tuberculosis screening: No symptoms or risk factors identified. Assessment: 13:15 General: Appears in no apparent distress. uncomfortable, Behavior is calm, cooperative, eh3 appropriate for age. Pain: Complains of pain in chest Pain radiates to back Pain began 2-3 days ago. Neuro: Level of Consciousness is awake, alert, obeys commands, Oriented to person, place, time, situation. Cardiovascular: Capillary refill < 3 seconds Patient's skin is warm and dry. Cardiovascular: Rhythm is sinus rhythm. Respiratory: Airway is patent Respiratory effort is even, unlabored, Respiratory pattern is regular, symmetrical. GI: No signs and/or symptoms were reported involving the gastrointestinal system. : No signs and/or symptoms were reported regarding the genitourinary system. EENT: No signs and/or symptoms were reported regarding the EENT system. Derm: Skin is pink, warm \T\ dry. Musculoskeletal: Circulation, motion, and sensation intact. 14:15 Reassessment: Patient appears in no apparent distress at this time. Patient and/or 3 family updated on plan of care and expected duration. Pain level reassessed. Patient is alert, oriented x 3, equal unlabored respirations, skin warm/dry/pink. 15:15 Reassessment: Patient appears in no apparent distress at this time. Patient and/or 3 family updated on plan of care and expected duration. Pain level reassessed. Patient is alert, oriented x 3, equal unlabored respirations, skin warm/dry/pink. Vital Signs: 13:15 BP 182 / 91; Pulse 64; Resp 18; Temp 98.2(O); Pulse Ox 98% ; eh3 14:15 BP 173 / 75; Pulse 60; Resp 16; Pulse Ox 98% on R/A; eh3 15:15 BP 146 / 90; Pulse 62; Resp 18; Pulse Ox 97% on R/A; eh3 ED Course: 11:53 Patient arrived in ED. mr 11:54 Noel Davis MD is Private Physician. mr 11:57 Rodo Valencia DO is Attending Physician. ms3 12:45 XRAY Chest (1 view) In Process Unspecified. EDMS 12:59 Rhea Jefferson, RN is Primary Nurse. iw 12:59 Initial lab(s) drawn, by me, sent to lab. Missed attempt(s): 20 gauge in right iw antecubital area. Bleeding controlled, band aid applied, catheter tip intact. 12:59 Basic Metabolic Panel Sent. iw 12:59 LFT's Sent. iw 12:59 CBC with Diff Sent. iw 12:59 Magnesium Sent. iw 12:59 NT PRO-BNP Sent. iw 12:59 PT-INR Sent. iw 12:59 Troponin HS Sent. iw 13:00 Triage completed. iw 13:15 Patient maintains SpO2 saturation greater than 95% on room air. eh3 13:15 Patient has correct armband on for positive identification. Bed in low position. Call 3 light in reach. Side rails up X2. Adult w/ patient. Client placed on continuous cardiac and pulse oximetry monitoring. NIBP monitoring applied. Door closed. Noise minimized. Lights dimmed. Warm blanket given. 13:16 Arm band placed on. iw 15:25 Troponin High Sensitivity Sent. eh3 15:57 Александр Briggs MD is Referral Physician. ms3 16:02 No provider procedures requiring assistance completed. Patient did not have IV access eh3 during this emergency room visit. Administered Medications: 13:25 Drug: Aspirin PO Chewable Tablet 324 mg Route: PO; eh3 14:30 Follow up: Response: No adverse reaction eh3 15:56 Drug: HYDROcodone-acetaminophen PO 5 mg-325 mg 1 tabs Route: PO; eh3 16:01 Follow up: Response: Medication administered at discharge. eh3 Medication: 16:02 VIS not applicable for this client. 3 Outcome: 15:58 Discharge ordered by MD. ms3 16:23 Discharged to home via wheelchair, with family. eh3 16:23 Condition: stable 16:23 Discharge instructions given to patient, Instructed on discharge instructions, follow up and referral plans. Demonstrated understanding of instructions, follow-up care. 16:28 Patient left the ED. 3 Signatures: Dispatcher [employer] JADGA Inocencia Beasley mr Rhea Jefferson, RN RN Rodo Valencia DO DO ms3 Roxana Ang, GINO RN 3
[2023-02-12] MEDS ORDERED: HYDROCODONE/APAP 5/325 MG TAB ONE (16:00)
[2023-02-12 16:32] VITALS: TEMP 98.2
[2023-02-12 16:34] VITALS: BP 146/90; O2SAT 97
--- NOTE | 2023-02-13 07:48 | EKG ---
Test Date: 2023-02-12 Test Time: 13:33:58 Administrator Pesticide: LAUREN MEASUREMENT RESULTS: Intervals: Rate: 60 CA: 176 QRSD: 86 QT: 462 QTc: 462 [place]: P: CA: 176 QRS: 69 T: 86 INTERPRETIVE STATEMENTS: Atrial-paced rhythm Nonspecific ST abnormality Abnormal ECG Compared to ECG 08/11/2022 15:44:01 ST (T wave) deviation now present Atrial fibrillation no longer present Ventricular premature complex(es) no longer present Prolonged QT interval no longer present Electronically Signed On 02-13-23 07:45:49 CDT by Franc Kebede
--- NOTE | 2023-02-13 13:49 | EKG ---
Test Date: 2023-02-12 Test Time: 13:34:26 Building Appraiser: LAUREN MEASUREMENT RESULTS: Intervals: Rate: 60 PA: 184 QRSD: 84 QT: 440 QTc: 440 [place]: P: 86 PA: 184 QRS: 67 T: 102 INTERPRETIVE STATEMENTS: Atrial-paced rhythm Nonspecific ST abnormality Abnormal ECG Compared to ECG 02/12/2023 13:33:58 No significant changes Electronically Signed On 02-13-23 13:48:17 CDT by Александр Briggs
== END 2023-02-12 16:28 | disposition home or self-care (01) ==
LOC: ER 11:49
DX: R07.9 Chest pain, unspecified (principal); M25.512 Pain in left shoulder; E78.5 Hyperlipidemia, unspecified; G47.30 Sleep apnea, unspecified; G62.9 Polyneuropathy, unspecified; Z95.0 Presence of cardiac pacemaker; Z88.5 Allergy status to narcotic agent; Z88.8 Allergy status to other drugs, medicaments and biological substances
CPT/HCPCS: 36415; 71045; 80048; 80076; 83735; 83880; 84484; 85025; 85610; 93005; 99284

== ENCOUNTER 2023-02-14 13:22 | Emergency (ER) | payer OTHER ==
--- OUTSIDE RECORDS SUMMARY | 2023-02-14 13:26 | XMS REPORT | Continuity of Care Document ---
:1935 Author Organization [facility] t Address [address] [place] [address] Care Team Providers Name Role Phone Asked, No Pcp Primary Care Physician Unavailable Александр Briggs Attending Clinician Unavailable Only, Adc Test Attending Clinician Unavailable Doctor Unassigned, [place] Attending Clinician Unavailable Александр Briggs Admitting Clinician Unavailable Payers Payer Name Policy Type Policy Number Effective Date Expiration Date Ros sarmiento MEDICARE PART A [id number] 1999 \T\ B 00:00:00 [employer] INDEMNITY [id number] 2000 00:00:00 Problems Condition Condition Condition Status [...] 10-31 Clear TEMPORARY 00:00: Wahl PARALYSIS 00 [facility] Diphenhy Propensi Active Unknown 2018-10 Metho di [...] Un malka INGREDI 0-24 ity of 00:00: [address] hydrocod DA Active [place] FLU LIKE 2008-10 [facility] one SYMPTOMS 0-01 Clear 00:00: Wahl 00 [facility] predniso DA Active GA 2008-10 [facility] ne 0-01 Clear 00:00: Wahl 00 [facility] tetracyc DA Active GA 2008-10 [facility] line 0-01 Clear 00:00: Wahl 00 [facility] gentamic DA Active GA 2008-10 [facility] in 0-01 Clear 00:00: Roscoe 00 [facility] Social History Social Habit Start Date Stop Date Quantity Comments Source Gender identity [facility] orientation [facility] of Social 2019-08-11 2019-08-11 [facility] function 00:00:00 00:00:00 Sex Assigned At [birth year] [facility] 00:00:00 00:00:00 Smoking Status Start Date Stop Date Source Tobacco smoking consumption unknown [facility] Medications Ordered Filled Start Stop Current [...] capsule 10:41: daily. Hospi ta 45 l fexofenadin 2018-10 Yes 1{tbl} QD [...] (twelve) emulsion hours. sotalol 2018-10 Yes 40mg [id number] Take 40 mg [facility] (BETAPACE) 1-12 [id number] by mouth [address] 80 MG 10:41: 3D (three) Hospita tablet 45 times a l day. metroNIDAZO 2018-10 Yes Q.5D Apply Metho di LE 1-[address] (METROCREAM 10:41: 2 (two) Hos ирина ) 0.75 % 45 times a l cream day. temazepam 2018-10 Yes 15mg QD Take 15 mg Me thodi (RESTORIL) 1-[address] 15 mg 10:41: nightly as Hospit a capsule 45 needed for l sleep. rivaroxaban 2018-10 Yes 20mg QD Take 20 mg [facility] (XARELTO) 1-[address] 20 mg 10:41: daily. Hospita tablet 45 l cycloSPORIN 2018-10 Yes 1[drp] Q12H Administer [facility] E 1-[address] (RESTASIS) 10:41: both eyes Ho spita 0.05 % 45 every 12 l ophthalmic (twelve) emulsion hours. sotalol 2018-10 Yes 40mg Q.[id number] Take 40 mg [facility] (BETAPACE) 1-12 [id number] by mouth [address] 80 MG 10:41: [...] (twelve) emulsion hours. sotalol 2018-10 Yes 40mg Q.[id number] Take 40 mg [facility] (BETAPACE) 1-12 [id number] by mouth [address] 80 MG 10:41: [...] (twelve) emulsion hours. sotalol 2018-10 Yes 40mg Q.[id number] Take 40 mg [facility] (BETAPACE) 1-12 [id number] by mouth [address] 80 MG 10:41: [...] / Time Performed Performing Clinician Cele kern [id number] 2021-11-02 00:00:00 RICH Cook [facility] Plan of Care Planned Activity Planned Date Details Comments Source Future Scheduled 2023-01-04 COVID-19 [facility]INE (#[facility] Test 19:22:11 [code = COVID-19 VACCINE (#1)] Future Scheduled 2023-01-04 SHINGLES VACCINES (1 [facility] Test 19:22:11 of 2) [code = SHINGLES VACCINES (1 of 2)] Future Scheduled 2023-01-04 65+ PNEUMOCOCCAL [facility] Test 19:22:11 VACCINE (1 - PCV) [code = 65+ PNEUMOCOCCAL VACCINE (1 - PCV)] Future Scheduled 2023-01-04 INFLUENZA VACCINE [facility] Test 19:22:11 [code = INFLUENZA VACCINE] Future Scheduled 2023-01-04 COVID-19 VACCINE (#1) [facility] Test 19:22:11 [code = COVID-19 VACCINE (#1)] Future Scheduled 2023-01-04 SHINGLES VACCINES (1 [facility] Test 19:22:11 of 2) [code = SHINGLES VACCINES (1 of 2)] Future Scheduled 2023-01-04 65+ PNEUMOCOCCAL [facility] Test 19:22:11 VACCINE (1 - PCV) [code = 65+ PNEUMOCOCCAL VACCINE (1 - PCV)] Future Scheduled 2023-01-04 INFLUENZA VACCINE [facility] Test 19:22:11 [code = INFLUENZA VACCINE] Future Scheduled 2022-08-03 HEPATITIS B VACCINES Met [facility] Test 19:25:23 (1 of 3 - 3-dose series) [code = HEPATITIS B VACCINES (1 of 3 - 3-dose series)] Future Scheduled 2022-08-03 COVID-19 VACCINE (#1) [facility] Test 19:25:23 [code = COVID-19 VACCINE (#1)] Future Scheduled 2022-08-03 SHINGLES VACCINES (1 Met [facility] Test 19:25:23 of 2) [code = SHINGLES VACCINES (1 of 2)] Future Scheduled 2022-08-03 65+ PNEUMOCOCCAL [facility] Test 19:25:23 VACCINE (1 - PCV) [code = 65+ PNEUMOCOCCAL VACCINE (1 - PCV)] Future Scheduled 2022-08-03 INFLUENZA VACCINE [facility] Test 19:25:23 [code = INFLUENZA VACCINE] Future Scheduled 2021-09-21 COVID-19 VACCINE (1) Met [facility] Test 12:31:11 [code = COVID-19 VACCINE (1)] Future Scheduled 2021-09-21 SHINGLES VACCINES (#1) M [facility] Test 12:31:11 [code = SHINGLES VACCINES [...] ID 2022-01-04 2022-01-04 Inpatient VIRAL Dominguez OUTD [id number] [facility] 05:18:00 05:18:00 Александр 40 [facility] 2021-11-02 2021-11-02 Inpatient VIRAL Dominguez INTE.02 [id number] [facility] 12:31:00 18:10:00 Александр 44 [facility] 2020-08-23 2020-08-23 Laboratory Only, [facility] [id number] 11:51:19 12:06:19 Only Test [place] 350.1.13.10 [place] [id number] [place] [id number] 2020-08-23 2020-08-23 Outpatient R [facility] [id number] [facility] 12:00:00 12:00:00 ity of [facility] 2020-08-23 2020-08-23 Orders Doctor TAMMY [id number] 00:00:00 00:00:00 Only Unassigned, JENA 350.1.13.10 [place] [address]686 [id number] Results Test Description Test Time Test Comments Results Result Comments Source Novel Coronavirus 2019 Inhouse 2022-01-03 01:14:00 Test Item Value Reference Range Interpretation Comme nts Novel Coronavirus 2018 Negative Negative Posit bola results are indicative of the Inhouse (test code = presenc e [id number]-8 RNA, clinical COVNONPUI) correlation wit h patient [...] qualitative detection of nucleic acid s from isjXVJR-RoG-5 virus and diagn osis of SARS-CoV-2 virusinfection. It is an Emergency Use Authorization ( EUA) testauthorized by the U.S. FDA. BASIC METABOLIC [id number] 13:59:00 Test Item Value Reference Range Interpretation [...] = 10.1 mg/dL 8.0-10.5 N CA) PROTHROMBIN [id number] 13:46:00 Test Item Value Reference Range Interpretation [...] (to prevent recurrent infar ct). 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 It is an Emergency Use Authorization ( EUA) testauthorized by the U.S. FDA. BASIC METABOLIC [id number] 13:51:00 Test Item Value Reference Range Interpretation [...] code = 10.1 mg/dL 8.0-10.5 N CA) [id number] 13:51:00 Test Item Value Reference Range Interpretation Comments PREALBUMIN (test code = PREALB) 25.8 mg/dL 16.0-40.0 N PROTHROMBIN [id number] 13:44:00 Test Item Value Reference Range Interpretation Comments PROTHROMBIN TIME 21.0 SECONDS 9.3-12.9 H PATIENT (test code = PTP) INTERNATIONAL NORMAL 1.9 0.8-1.2 H TARGE T INR BY RATIO (test code = INDICATIO N Indication INR) INR1. Prophylax is of venous thrombos is 2.0 - 3.0 (orthoped ic surgery), Proph ylaxis of venous throm bosis (other than hig h-risk surgery), Treat ment of Deep Vein Thrombosis/Pulm onary Embolism, Preve ntion of systemic emb olism - Tissue heart va lves, Acute Myocardia l Infarction (to prevent systemic embol ism), Valvular heart disease, Atrial Fibrillation, Bileaflet mecha nical valve in aortic position.2. Mec hanical prosthetic valv es (high risk), 2. 5 - 3.5 Presence of Lup us Anticoagulant o r Antiphospholipi d Antibodies, Pre vention of systemic emb olism - Acute Myocardia l Infarction (to prevent recurrent infar ct). CBC W/AUTO [id number] 13:35:00 Test Item Value Reference Range Interpretation [...] DIFF REQUIRED (test code NO = MDIFF) Notes Date/Time Note Provider Source 2022-01-18 13:24:00-00:00 [id number] [place] [address] PATIENT NAME: BISMARK CLAYTON ADMIT DATE: 01/04/22 ACCOUNT NO: [id number] ROOM NO: AGE: 86 REPORT TYPE: eTRANSESOPHAGEAL ECHO REPORT SEX: F ADMITTING PHYSICIAN: ATTENDING PHYSICIAN:Александр Briggs MD *[place] [address] Transesophageal Echocardiogram Patient: Bismark Clayton Study Date: 01/04/2022 BP: 131 / 62 Location: [facility] URN: [id number] : 1935 Age: 86 Height: 63 in / 160 cm Gender: F Weight: 169 .6 lb / 77.1 kg BMI/BSA: 30.1 kg/m 2 / 1.8 m 2 *Ordering Physician: * Александр Briggs *Interpreting Physician: * Brigitte Fountain MD *Resource Recovery Engineer: * Nelia Romero Indications: POST WATCHMAN. Study data: Consent: The risks, benefits, and al ternatives to the procedure were explained to the patient and info rmed consent was obtained. Procedure: Initial setup: The patient was brought to the laboratory in the fasting state.Intravenous acce ss was obtained. Surface ECG leads and pulse oximetric signals were monit ored. Sedation. Moderate sedation was administered by cardiology staff. T ransesophageal echocardiography was performed. Topical anesthes ia was obtained using benzocaine spray. A transesophageal probe (SN: [id number]) was inserted by the attending procedure rn without difficulty. L ocation: Procedure room. Patient status: Outpatient. [facility] Study status: Routine. Study completion: The pat ient tolerated the procedure well. There were no complications. Findings PATIENT NAME: BISMARK CLAYTON Left ventricle: The cavity size is normal. Systo lic function is normal. Right ventricle: The cavity size is normal. Syst olic function is normal. Left atrium: Post Watchman: There is no evidence of residual flow around the Watchman occluder device. Aorta: Fibrocalcific change is present in the ro ot. Aortic valve: The valve is structurally normal. The valve is trileaflet. Cusp separation is normal. There is no evidence of a vegetation. There is no evidence of stenosis. Th ere is no regurgitation. Mitral valve: The valve is structurally normal. There is no evidence of a vegetation. There is moderate to s evere regurgitation. Tricuspid valve: The valve is structurally feliz l. There is no evidence of a vegetation. There is trivial regur gitation. Pulmonic valve: The valve is structurally normal . There is no evidence of a vegetation. There is no regurgitat ion. Conclusions Summary: 1. Left ventricle: The cavity size is normal. Sy stolic function is normal. 2. Left atrium: Post Watchman: There is no evide nce of residual flow around the Watchman occluder device. 3. Aortic valve: There is no evidence of a veget ation. 4. Mitral valve: There is no evidence of a veget ation. There is moderate to severe regurgitation. 5. Tricuspid valve: There is no evidence of a ve getation. 6. Pulmonic valve: There is no evidence of a veg etation. Prepared and electronically signed by Brigitte Fountain MD 01/18/2022 13:24 Electronically Signed by Александр Briggs MD on at 1324 PATIENT NAME: BISMARK CLAYTON 2021-11-02 15:31:00-00:00 [id number] [place] [id number] PATIENT NAME: BISMARK CLAYTON ADMIT DATE: 11/02/21 ACCOUNT NO: [id number] ROOM NO: [place] AGE: 86 REPORT TYPE: eECHOCARDIOGRAM REPORT SEX: F ADMITTING PHYSICIAN:Александр Briggs MD ATTENDING PHYSICIAN:Александр Briggs MD *[address] [address] Transthoracic Echocardiogram Patient: Bismark Clayton Study Date: 11/02/2021 BP: Location: [facility] URN: [id number] : 1935 Age: 86 Height: 63 in / 160 cm Gender: F Weight: 163 lb / 74.1 kg BMI/BSA: 28.9 kg/m 2 / 1.84 m 2 *Ordering Physician: * Teodoro Reyes *Interpreting Physician: * Malgorzata Salazar MD *Resource Recovery Engineer: Jessie Dotson RD Indications: R/O PERICARDIAL EFFUSION. Study data: Transthoracic echocardiogram. Comple te 2D, complete spectral Doppler, and color Doppler. Location: [facility]. Patient status: Inpatient. Patient room number: CVPREP. Study status: DAYANA. Findings Left ventricle: Wall thickness is mildly increas ed. The estimated ejection fraction is 55-59%. Mitral valve: There is mild to moderate regurgit ation. Tricuspid valve: There is mild regurgitation. Pericardium: A prominent pericardial fat pad is present. A small pericardial effusion is identified posterior to the heart. PATIENT NAME: BISMARK CLAYTON Measurements Left ventricle Value Ref RICKIE, LAX 4.1 cm 3.8 - 5.2 ESD, LAX 2.8 cm 2.2 - 3.5 ESD/bsa, LAX 1.5 cm/m 2 1.3 - 2.1 FS, LAX 32 % 27 - 45 PW, ED 1.1 cm 0.6 - 0.9 IVS/PW, ED 0.97 EF 60 % 54 - 74 Ventricular septum Value Ref IVS, ED 1.1 cm 0.6 - 0.9 Left atrium Value Ref AP dim, ES 3.77 cm 2.70 - 3.80 Tricuspid valve Value Ref TR peak v 2.52 m/sec <=2.8 Peak RV-RA grad, S 25 mm Hg Conclusions Summary: 1. Left ventricle: Wall thickness is mildly incr eased. The estimated ejection fraction is 55-59%. 2. Mitral valve: There is mild to moderate regur gitation. 3. Pericardium, extracardiac: A small pericardia l effusion is identified posterior to the heart. Prepared and electronically signed by Malgorzata Salazar MD 11/02/2021 15:31 Electronically Signed by Malgorzata Salazar MD on 0 11/02/21 at 1531 PATIENT NAME: BISMARK CLAYTON 2021-11-02 14:09:00-00:00 [facility] ([facility]) Discharge Summary REPORT#:[id number] REPORT STATUS: Signed DATE:11/02/21 TIME: 1409 PATIENT: BISMARK CLAYTON UNIT #: [id number] ROOM/BED: [place] [address] : 34 AGE: 86 SEX: F ATTEND: Mera Briggs MD ADM AUTHOR: Teodoro Reyes * ALL edits or amendments must be made on the [employer]/computer document * PCP PCP Discharge to: home General Information Discharge date: 11/02/21 Hospital course: Patient with paroxysmal atrial fibrillation, PAULINE DSVASC score of 4, and intolerance to long-term anticoagulation due to fall risk. Patient is s/p successful implantation of a 27mm Watchman device in the left atrial appendage. Patient tolerated the procedure without post-op complications. No thrombus was identified in the pre-/intra-op KIA. Postoperatively, chest x-ray is negative for any acute process. Post-op echo shows a small pericardial effusion. Patient ambulated without an y difficulty, and heart rate and blood pressure are stable. Right groin suture removed by this DISTRIBUTION TECH. No infect ion, bleeding, or hematoma. Dermabond applied and intact. Patient was provided with post-Watchman discharg e instructions. Patient is to follow up with PCP and procedure rn in 1 to 2 we eks post discharge. Patient is to follow up with procedure rn for th e 45-day KIA, and for anticoagulation recommendation. Patient is to continue Xarelto until the 45-day KIA. If the 45-day KIA shows a we ll-seated watchman device with no leaks or thrombus, then Xarelto will be discontinued and th e patient will be initiated on aspirin and Plavix. Duration of aspirin is lifelong. Duration of Plavix is 6 months post 45-day KIA. Post-Watchman discharge instructions given to th e patient who verbalized understanding, and patient w as instructed to report any complaints of chest pain , shortness of breath, lightheadedness, or dizzi ness to the procedure rn. Dispo: It is medically necessary that patients u ndergoing percutaneous left atrial appendage occlusion are admitted as an in patient. This patient had a recovery that was earlier than expected and can be discharged today. Med Rec PCP PCP: PCP: Noel Davis MD Med Rec Discharge meds: Continue taking these medications: [PROBIOTIC] (Unknown Strength) Unknown Dose ORAL DAILY. PREGABALIN (LYRICA) 75 MG CAP 75 MILLIGRAM ORAL TWICE DAILY. FUROSEMIDE (LASIX) 40 MG TAB 20 MILLIGRAM ORAL DAILY. RIVAROXABAN (XARELTO) 20 MG TAB 20 MILLIGRAM ORAL DAILY-AM SOTALOL (BETAPACE) 80 MG TAB 40 MILLIGRAM ORAL THREE TIMES A DAY. ZOLPIDEM CR (AMBIEN CR) 6.25 MG TAB.MPHASE 6.25 MILLIGRAM ORAL BEDTIME. ACETAMINOPHEN/diphenhydrAMINE (TYLENOL PM) 1 EAC H TAB 1 EACH ORAL BEDTIME. FEXOFENADINE (CHRIS ALLERGY) 180 MG TAB 180 MILLIGRAM ORAL DAILY NEEDED. as needed f or ALLERGIES [PRESERVISION] (Unknown Strength) Unknown Dose ORAL DAILY. Objective VS/I O Last Documented: Result Date Time O2 Delivery Simple mask 11/02 1159 O2 Flow Rate 10 11/02 1159 Pulse Ox 97 11/02 0746 B/P 149/76 11/02 0746 Temp 36.4 11/02 0746 Pulse 62 11/02 0746 Resp 18 11/02 0746 PATIENT WEIGHT: Weight (lb): 163 Weight (oz): 12.86 Weight (kg): 74.300 General appearance: alert, awake, oriented Cardiovascular: regular rate rhythm Respiratory: clear to auscultation, no distress GI: soft, non-tender Extremities: moves all Neuro/PIN DRAFTER: alert, oriented X 3 Skin: dry Wound/incision: Location: Right groin suture removed by this DISTRIBUTION TECH. No infect ion, bleeding, or hematoma. Dermabond applied and intact. Treatments Procedures Treatments Procedures: Left atrial appendage closure using 27-mm Watchm an FLX closure device. Discharge Instructions PCP PCP: PCP: Nole Davis MD )( Discharge to: Home/Self Care Discharge Instructions Additional Discharge Routines: Attending Follow- Up )( Diet: Cardiac )( Activity: As Tolerated Follow-up Appointments Attending Physician: Attending Physician: Александр Briggs MD Attending physician follow up timeframe: In 1- 2 weeks Electronically Signed by Teodoro Reyes 11/03/21 at 1102 Electronically Signed by Александр Briggs MD on 11/22 at 0946 [facility] #:[id number] END OF REPORT 2021-11-02 10:58:00-00:00 [id number] [place] [address] PATIENT NAME: BISMARK CLAYTON ADMIT DATE: 11/02/21 ACCOUNT NO: [id number] ROOM NO: [place] AGE: 86 REPORT TYPE: CARDIAC CATHETERIZATION REPORT SEX: F ADMITTING PHYSICIAN:Александр Briggs MD ATTENDING PHYSICIAN:Александр Briggs MD PROCEDURE DATE: 11/02/2021 PROCEDURE PERFORMED: Left atrial appendage closu re using 27-mm Watchman FLX closure device. INDICATIONS: Atrial fibrillation, high CHADS-VAS c score and inability to take anticoagulant. ACCESS: Right femoral vein, 16-Jordanian closed wit h ovbyxm-ib-fdqym suture. COMPLICATIONS: None. BLEEDING: Less than 50 mL. DESCRIPTION OF PROCEDURE: After risks, benefits, and alternatives were explained, the patient agreed to proceed and sig zackary informed consent. The patient was brought into [facility] catheterization laboratory, prepped and draped in usual sterile fashion. Then, we accessed [facility] femoral vein using a micropuncture kit under ultrasound guidance and placed an 8-Jordanian Chesapeake sheath, then upgraded to 16- Jordanian sheath, gave partial dose of heparin and took SL1 sheath into the SVC with Dell needle insid e under fluoroscopy, KIA guidance, descended into the interatrial septum and then a transseptal puncture was performed successfully. LA pressure was carmen ured at 19 mmHg. Then, I exchanged using a ProTrack wire for a do uble curve Watchman sheath and then we took a pigtail through the Watchman sheath into the left atrium and navigated that into the appendage and then advanced the Wa tchman sheath into the appendage. Angiogram was done, determined 27 mm device will be suitable for closure. The device was prepped and de-aired in the usual sterile fashion. I then removed the pigtail after bleed back and af ter a positive flush. Device was introduced and then delivered into t ryan left atrial appendage successfully. PASS criteria were evaluated and met. As such, the device was released and then removed the delivery system and Watchman sheath and the sheath was removed. A [id number]-mj-[id number] suture was p laced with good hemostasis. A full dose heparin was given throughout the procedure to assure ACT lev el above 250. CONCLUSION: Successful left atrial appendage fabian sure using 27-mm Watchman FLX closure device. Dictated By: Александр Briggs MD WT: CATH:CHICHI/RICH/RHIANNON PATIENT NAME: BISMARK CLAYTON Conf#: [id number]/DID#: [id number] Authenticated by Александр Briggs MD On 11/09/2021 12:30:13 PM Electronically Signed by Александр Briggs MD on at 1230 PATIENT NAME: BISMARK CLAYTON 2021-10-31 12:27:00-00:00 [id number] [place] [address] PATIENT NAME: BISMARK CLAYTON ADMIT DATE: ACCOUNT NO: [id number] ROOM NO: AGE: 86 REPORT TYPE: eELECTROCARDIOGRAM REPORT SEX: F ADMITTING PHYSICIAN: ATTENDING PHYSICIAN:Александр Briggs MD Order: [id number] Test Reason : PREOP Test Date/Time Stamp: SunOct 31 2021 12:27:54 Blood Pressure : / mmHG Vent. Rate : 061 BPM Atrial Rate : 061 BPM P-R Int : 172 ms QRS Dur : 084 ms QT Int : 446 ms P-R-T Axes : 062 057 068 degree s QTc Int : 448 ms Normal sinus rhythm Nonspecific ST abnormality Abnormal ECG No previous ECGs available Confirmed by JIE [facility]ON [facility] ([id number]) on 10/31/19 2:27:17 PM Referred By: Александр Briggs Confirmed by:PÉREZ RANDHAWA MD at 1427 PATIENT NAME: BISMARK CLAYTON
[2023-02-14] MEDS ORDERED: ASPIRIN 81 MG CHEWABLE TABLET ONE (14:35)
[2023-02-14] MEDS ORDERED: NITROGLYCERIN 0.4 MG/TAB SL ONE (14:35)
[2023-02-14 14:56] LABS: Absolute Lymphocytes (CBC) 1.5 K/uL (0.7-4.9); Hematocrit 36.3 % (36.0-45.0); Lymphocytes % 18.5 % (15.3-44.8); MCV 95.6 fL (80-100); MPV 7.9 fL (7.6-11.3)
[2023-02-14 14:59] LABS: Protime INR 0.99
[2023-02-14 15:14] LABS: Albumin 3.5 g/dL (3.4-5.0); Bilirubin Direct 0.1 mg/dL (0-0.2); Bilirubin Indirect, Calculated 0.4 mg/dL (0.2-0.8); Bilirubin Total 0.5 mg/dL (0.2-1.0); Magnesium 2.1 mg/dL (1.6-2.4); Potassium 3.4 mEq/L (3.5-5.1); Protein, Total 6.7 g/dL (6.4-8.2); Troponin High Sensitivity 13.5 pg/mL (<58.9)
--- NOTE | 2023-02-14 15:25 | RAD REPORT ---
EXAM DESCRIPTION: CT - Angio Aorta For Dissection - 02/14/2023 2:28 pm CLINICAL HISTORY: chest pain COMPARISON: Chest Single View dated 02/12/2023; Abdomen Pelvis W Contrast dated 08/11/2022 TECHNIQUE: Dynamically enhanced 3 mm thick images of the chest, abdomen, and pelvis were obtained du ring administration of approximately 100mL Isovue 370 IV contrast. Multiplanar reconstructions as wel l as maximal intensity projection reconstruction were generated and reviewed per an aortic angiograph y protocol. All CT scans are performed using dose optimization technique as appropriate and may include automated exposure control or mA/KV adjustment according to patient size. FINDINGS: Aorta is normal in diameter with no dissection or other acute aortic findings. Moderate at herosclerotic calcifications throughout the descending thoracic and abdominal aorta. Reconstruction i mages show no other significant findings. Pulmonary arteries are normal as well. Posterior left lower lobe subpleural nodules, largest measuring up to 1 centimeter in size. Scattered mild atelectatic changes. . No pleural thickening, pleural effusion or pneumothorax. No abnormal mediastinal or hilar mass or lymphadenopathy seen. Heart is normal size, although the lef t atrium is enlarged. Left atrial appendage occlusion device in place. Left chest wall pacer present. No chest wall mass or abnormal axillary lymphadenopathy. Celiac, SMA and renal arteries show no suspicious findings. Solid abdominal viscera and bowel show no significant findings. No mass or abnormal lymphadenopathy. IMPRESSION: No acute abnormalities on CT angiogram of the aorta. No other acute findings on chest, abdomen and pelvis examination. Nonspecific left lower lobe subpleural nodules up to 1 centimeter, could be infectious, granulomatous , or related to atelectasis.
--- NOTE | 2023-02-14 17:11 | EDPHYS ---
Physician Documentation [facility] Name: Bismark Clayton Age: 87 yrs Sex: Female : 1935 Arrival Date: 02/14/2023 Time: 13:22 Bed 13 Private MD: Noel Davis ED Physician Cash Borrego HPI: 02/14 15:51 This 87 yrs old Female presents to ER via Ambulatory with complaints of Chest Pain, rt Back Pain. 15:51 Patient presents to the ED with 2 days of a chest pain rating to the back, left rt shoulder. The pain is dull, constant with occasional episodes of it being more sharp. It does not seem to be exertional in nature, worse with lying down flat. She denies other acute complaints at this time. Patient states that the symptoms have somewhat worsened today prompting her come to the ED for further evaluation. Denies other acute complaints at this time, symptoms are moderate in severity, no other aggravating or alleviating factors.. 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 - Social history:: Smoking status: Patient denies any tobacco usage or history of. - Family history:: not pertinent. ROS: 15:51 Constitutional: Negative for fever, chills, and weight loss, Respiratory: Negative for rt shortness of breath, cough, wheezing, and pleuritic chest pain, Abdomen/GI: Negative for abdominal pain, nausea, vomiting, diarrhea, and constipation, MS/Extremity: Negative for injury and deformity, Skin: Negative for injury, rash, and discoloration, Neuro: Negative for headache, weakness, numbness, tingling, and seizure, Psych: Negative for depression, anxiety, suicide ideation, homicidal ideation, and hallucinations. 15:51 Cardiovascular: Positive for chest pain, Negative for edema. 15:51 Back: Positive for pain at rest, Negative for injury or acute deformity. Exam: 15:51 Constitutional: This is a well developed, well nourished patient who is awake, alert, rt and in no acute distress. Head/Face: Normocephalic, atraumatic. Chest/axilla: Normal chest wall appearance and motion. Nontender with no deformity. No lesions are appreciated. Cardiovascular: Regular rate and rhythm with a normal S1 and S2. No gallops, murmurs, or rubs. Normal PMI, no JVD. No pulse deficits. Respiratory: Lungs have equal breath sounds bilaterally, clear to auscultation and percussion. No rales, rhonchi or wheezes noted. No increased work of breathing, no retractions or nasal flaring. Abdomen/GI: Soft, non-tender, with normal bowel sounds. No distension or tympany. No guarding or rebound. No evidence of tenderness throughout. Skin: Warm, dry with normal turgor. Normal color with no rashes, no lesions, and no evidence of cellulitis. MS/ Extremity: Pulses equal, no cyanosis. Neurovascular intact. Full, normal range of motion. Neuro: Awake and alert, GCS 15, oriented to person, place, time, and situation. Cranial nerves II-XII grossly intact. Motor strength 5/5 in all extremities. Sensory grossly intact. Cerebellar exam normal. Normal gait. Psych: Awake, alert, with orientation to person, place and time. Behavior, mood, and affect are within normal limits. 15:51 ECG was reviewed by the Attending Physician. Vital Signs: 13:34 BP 141 / 65; Pulse 66; Resp 18; Temp 98.2; Pulse Ox 97% ; Weight 68.04 kg; Height 5 ft. nj1 2 in. ; Pain 9/10; 14:54 BP 141 / 63; Pulse 66; Resp 16; Pulse Ox 94% ; bp 16:06 BP 126 / 68; Pulse 60; Resp 16; Pulse Ox 92% ; bp 17:32 BP 141 / 67; Pulse 68; Resp 16; Pulse Ox 98% on R/A; Pain 5/10; sg5 13:34 Body Mass Index 27.44 (68.04 kg, 157.48 cm) nj1 13:34 Pain Scale: Adult nj1 17:32 Pain Scale: Adult sg5 MDM: 13:48 Patient medically screened. rt 17:12 Differential diagnosis: abnormal EKG, acute myocardial infarction, acute pericarditis, rt anxiety, coronary artery disease congestive heart failure pneumonia, pneumothorax, pulmonary embolus, thoracic aortic disection, unstable angina. HEART Score: History: Moderately Suspicious (1), ECG: Non specific repolarization disturbance / LBTB / PM (1), Age: > or = 65 years (2), Risk Factors: 1 or 2 risk factors (1), Troponin: < or = 1 x Normal Limit (0), Total Score = 5. The patient was given aspirin in the Emergency Department. Data reviewed: vital signs, nurses notes, lab test result(s), EKG, radiologic studies. Consideration of Admission/Observation Escalation of care including admission/observation considered. Discussed and recommended admission to the patient, stating that it was the safer options, patient states that as she has an appointment tomorrow with cardiology, she strongly desirous of discharge. Repeat troponin was obtained and then remains to be unremarkable. Strict return precautions were given to the patient if she changes her mind regarding admission or if she has worsening symptoms, patient verbalized understanding and has capacity to refuse admission, shared decision-making was employed.. I considered the following discharge prescriptions or medication management in the emergency department Medications were administered in the Emergency Department. See MAR. Care significantly affected by the following chronic conditions: hld. Counseling: I had a detailed discussion with the patient and/or guardian regarding: the historical points, exam findings, and any diagnostic results supporting the discharge/admit diagnosis, lab results, radiology results, to return to the emergency department if symptoms worsen or persist or if there are any questions or concerns that arise at home. Response to treatment: the patient's symptoms have mildly improved after treatment. 02/14 14:03 Order name: Basic Metabolic Panel; Complete Time: : rt 02/14 14:03 Order name: CBC with Diff; Complete Time: : rt 02/14 14:03 Order name: LFT's; Complete Time: 15: rt 02/14 14:03 Order name: Magnesium; Complete Time: 15: rt 02/14 14:03 Order name: NT PRO-BNP; Complete Time: 15: rt 02/14 14:03 Order name: PT-INR; Complete Time: 15: rt 02/14 14:03 Order name: Troponin HS; Complete Time: 15: rt 02/14 14:03 Order name: Lipase; Complete Time: : rt 02/14 15:38 Order name: Troponin High Sensitivity; Complete Time: 17:06 rt 02/14 14:03 Order name: CT Aorta for Dissection; Complete Time: 15:27 rt 02/14 14:03 Order name: EKG; Complete Time: 14:04 rt 02/14 14:03 Order name: Cardiac monitoring; Complete Time: 14:21 rt 02/14 14:03 Order name: EKG - Nurse/Tech; Complete Time: 14:21 rt 02/14 14:03 Order name: IV Saline Lock; Complete Time: 14:21 rt 02/14 14:03 Order name: Labs collected and sent; Complete Time: 14:21 rt 02/14 14:03 Order name: O2 Per Protocol; Complete Time: 14:21 rt 02/14 14:03 Order name: O2 Sat Monitoring; Complete Time: 14:21 rt EC:51 Rate is 66 beats/min. Rhythm is regular, Normal Sinus Rhythm with No ectopy. QRS [place] rt is Normal. VT interval is normal. QRS interval is normal. QT interval is normal. No Q waves. Clinical impression: NSR w/ Non-specific ST/T Changes. Interpreted by me. Administered Medications: 14:21 Drug: Aspirin PO Chewable Tablet 324 mg Route: PO; bp 14:22 Drug: Nitroglycerin Sublingual 0.4 mg Route: Sublingual; bp 17:28 Drug: HYDROcodone-acetaminophen PO 5 mg-325 mg 1 tabs Route: PO; sg5 Disposition Summary: 02/14/23 17:10 Discharge Ordered Location: Home rt Problem: an ongoing problem rt Symptoms: have improved rt Condition: Stable rt Diagnosis - Chest pain, unspecified rt Followup: rt - With: Александр Briggs MD - When: Tomorrow - Reason: Discharge Instructions: - Discharge Summary Sheet rt - Nonspecific Chest Pain, Adult rt Forms: - Medication Reconciliation Form rt - Thank You Letter rt - Antibiotic Education rt - Prescription Opioid Use rt Prescriptions: - Tramadol 50 mg Oral Tablet - take 1 tablet by ORAL route every 8 hours as needed; 6 tablet; Refills: 0, rt Product Selection Permitted Signatures: Dispatcher [employer] Juan J Marin RN RN bp Cash Borrego MD MD rt Vi Schulte RN RN sg5 Sofia Lau RN RN nj1
--- NOTE | 2023-02-14 17:11 | ER ---
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 Pain has gotten worse. Coronavirus screen: Vaccine status: Patient reports receiving the 2nd dose of the covid vaccine. Ebola Screen: Patient denies travel to an Ebola-affected area in the 21 days before illness onset. Initial Sepsis Screen: Does the patient meet any 2 criteria? No. Patient's initial sepsis screen is negative. Does the patient have a suspected source of infection? No. Patient's initial sepsis screen is negative. Risk Assessment: Do you want to hurt yourself or someone else? Patient reports no desire to harm self or others. Onset of symptoms was February 10, 2023. 13:34 Method Of Arrival: Ambulatory [facility] 13:34 Acuity: GAURAV 3 la1 Triage Assessment: 13:45 General: Appears in no apparent distress. uncomfortable, Behavior is calm, cooperative, bp appropriate for age. Pain: Complains of pain in chest. EENT: No deficits noted. Neuro: No deficits noted. Cardiovascular: Rhythm is sinus rhythm. Respiratory: No deficits noted. GI: No deficits noted. : No signs and/or symptoms were reported regarding the genitourinary system. Derm: No deficits noted. Musculoskeletal: No deficits noted. 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 - Social history:: Smoking status: Patient denies any tobacco usage or history of. - Family history:: not pertinent. Screenin:55 [facility] ED Fall Risk Assessment (Adult) History of falling in the last 3 months, bp including since admission No falls in past 3 months (0 pts). Abuse screen: Denies threats or abuse. Denies injuries from another. Nutritional screening: No deficits noted. Tuberculosis screening: No symptoms or risk factors identified. Assessment: 13:45 General: SEE TRIAGE NOTE. bp 16:06 Reassessment: Patient appears in no apparent distress at this time. Patient is alert, bp oriented x 3, equal unlabored respirations, skin warm/dry/pink. 17:33 Reassessment: DC HOME AMBULATORY. bp 17:33 Pain: Pain radiates to around lower trunk Pain began. sg5 Vital Signs: 13:34 BP 141 / 65; Pulse 66; Resp 18; Temp 98.2; Pulse Ox 97% ; Weight 68.04 kg; Height 5 ft. nj1 2 in. ; Pain 9/10; 14:54 BP 141 / 63; Pulse 66; Resp 16; Pulse Ox 94% ; bp 16:06 BP 126 / 68; Pulse 60; Resp 16; Pulse Ox 92% ; bp 17:32 BP 141 / 67; Pulse 68; Resp 16; Pulse Ox 98% on R/A; Pain 5/10; sg5 13:34 Body Mass Index 27.44 (68.04 kg, 157.48 cm) nj1 13:34 Pain Scale: Adult nj1 17:32 Pain Scale: Adult sg5 ED Course: 13:23 Patient arrived in ED. am2 13:23 Noel Davis MD is Private Physician. am2 13:30 Cash Borrego MD is Attending Physician. rt 13:36 Triage completed. nj1 13:37 Arm band placed on right wrist. nj1 13:40 Juan J Nunez, GINO is Primary Nurse. bp 14:21 Inserted saline lock: 22 gauge in right forearm, using aseptic technique. Blood bp collected. 14:30 CT Aorta for Dissection In Process Unspecified. EDMS 14:55 Patient has correct armband on for positive identification. Bed in low position. Call bp light in reach. Side rails up X2. Client placed on continuous cardiac and pulse oximetry monitoring. NIBP monitoring applied. 17:10 Александр Briggs MD is Referral Physician. rt 17:28 IV discontinued. sg5 17:32 No provider procedures requiring assistance completed. Patient maintains SpO2 sg5 saturation greater than 95% on room air. Administered Medications: 14:21 Drug: Aspirin PO Chewable Tablet 324 mg Route: PO; bp 14:22 Drug: Nitroglycerin Sublingual 0.4 mg Route: Sublingual; bp 17:28 Drug: HYDROcodone-acetaminophen PO 5 mg-325 mg 1 tabs Route: PO; sg5 Medication: 17:32 VIS not applicable for this client. sg5 Outcome: 17:10 Discharge ordered by . rt 17:32 Discharged to home with family. sg5 17:32 Condition: good 17:32 Discharge instructions given to patient, Instructed on discharge instructions, follow up and referral plans. 17:34 Patient left the ED. sg5 Signatures: Dispatcher [employer] EDMS Janay Luevano am2 Juan J Nunez RN RN bp Csah Borrego MD MD rt Vi Schulte RN RN sg5 Sofia Lau RN RN nj1
[2023-02-14] MEDS ORDERED: HYDROCODONE/APAP 5/325 MG TAB ONE (17:22)
--- NOTE | 2023-02-15 11:23 | EKG ---
Test Date: 2023-02-14 Test Time: 14:17:58 Director Supply Chain: [employer] MEASUREMENT RESULTS: Intervals: Rate: 66 MI: 174 QRSD: 84 QT: 448 QTc: 469 [place]: P: 77 MI: 174 QRS: 81 T: 82 INTERPRETIVE STATEMENTS: Normal sinus rhythm Nonspecific ST abnormality Abnormal ECG Compared to ECG 02/12/2023 13:34:26 Atrial-paced complex(es) or rhythm no longer present Ventricular-paced complex(es) or rhythm no longer present ST (T wave) deviation still present Electronically Signed On 02-15-23 11:20:15 CDT by Franc Kebede
== END 2023-02-14 17:34 | disposition home or self-care (01) ==
LOC: ER 13:22
DX: R07.9 Chest pain, unspecified (principal); M54.9 Dorsalgia, unspecified; Z95.0 Presence of cardiac pacemaker; Z88.5 Allergy status to narcotic agent
CPT/HCPCS: 85025; 80048; 36415; 83735; 85610; 80076; 84484 ×2; 83690; 83880; 71275; 74175; Q9967; 93005

== ENCOUNTER 2023-02-19 13:09 | Inpatient (IN) | payer OTHER ==
--- OUTSIDE RECORDS SUMMARY | 2023-02-19 13:14 | XMS REPORT | Continuity of Care Document ---
:1935 Author Organization [facility] t Address [address] [place] [address] Care Team Providers Name Role Phone Asked, No Pcp Primary Care Physician Unavailable Александр Briggs Attending Clinician Unavailable Only, Adc Test Attending Clinician Unavailable Doctor Unassigned, [place] Attending Clinician Unavailable Александр Briggs Admitting Clinician Unavailable Payers Payer Name Policy Type Policy Number Effective Date Expiration Date S [email or web address] MEDICARE PART A [id number] 1999 \T\ B 00:00:00 [employer] INDEMNITY [id number] 2000 00:00:00 Problems Condition Condition Condition Status [...] 10-31 Clear TEMPORARY 00:00: Wahl PARALYSIS 00 [facility] Diphenhy Propensi Active Unknown 2018-10 Metho di dramine ty to Reaction 10-11 st adverse 00:00: Hospita reaction 00 l s to drug Hydrocod Propensi Active Unknown 2018-10 Metho di one ty to Reaction 10-11 st adverse 00:00: [...] Un malka INGREDI 0-24 ity of 00:00: [address] hydrocod DA Active [place] FLU LIKE 2008-10 [facility] one SYMPTOMS 0-01 Clear 00:00: Wahl 00 [facility] predniso DA Active OK 2008-10 [facility] ne 0-01 Clear 00:00: Wahl 00 [facility] tetracyc DA Active OK 2008-10 [facility] line 0-01 Clear 00:00: Wahl 00 [facility] gentamic DA Active OK 2008-10 [facility] in 0-01 Clear 00:00: Wahl 00 [facility] Social History Social Habit Start Date Stop Date Quantity Comments Source Gender identity [facility] Sexual orientation [facility] of Social 2019-08-11 2019-08-11 [facility] function 00:00:00 00:00:00 Sex Assigned At [birth year] [facility] 00:00:00 00:00:00 Smoking Status Start Date Stop Date Source Tobacco smoking consumption unknown [facility] Medications Ordered Filled Start Stop Current Ordering Indication Dosage Frequency Signature Comments Components Source Medication Medication Date Date Medication? Clinician (SIG) Name Name fexofenadin 2018-10 Yes 1{tbl} QD Take 1 Me thodi e-pseudoepH 1-[address] [facility] 10:41: mouth Hospita (CHRIS-D 45 daily. l [...] (twelve) emulsion hours. sotalol 2018-10 Yes 40mg [id number] Take 40 mg [facility] (BETAPACE) 1-12 [id number] by mouth [address] 80 MG 10:41: [...] (twelve) emulsion hours. sotalol 2018-10 Yes 40mg Q.[id number] Take 40 mg [facility] (BETAPACE) 1-12 [id number] by mouth [address] 80 MG 10:41: [...] (twelve) emulsion hours. sotalol 2018-10 Yes 40mg Q.[id number] Take 40 mg [facility] (BETAPACE) 1-12 [id number] by mouth [address] 80 MG 10:41: [...] (twelve) emulsion hours. sotalol 2018-10 Yes 40mg Q.[id number] Take 40 mg [facility] (BETAPACE) 1-12 [id number] by mouth [address] 80 MG 10:41: [...] (twelve) emulsion hours. sotalol 2018-10 Yes 40mg Q.[id number] Take 40 mg [facility] (BETAPACE) 1-12 [id number] by mouth [address] 80 MG 10:41: [...] Procedure Date / Time Performed [facility]forming [id number] 2021-[facility]02 00:00:00 RICH [facility] Plan of Care Planned Activity Planned Date Details Comments Source Future Scheduled 2023-01-04 SHINGLES VACCINES (1 [facility] 19:22:11 of 2) [code = SHINGLES VACCINES (1 of 2)] Future Scheduled 2023-01-04 65+ [facility]OCOCC[address] [facility] Test 19:22:11 VACCINE (1 - PCV) [code = 65+ PNEUMOCOCCAL VACCINE (1 - PCV)] Future Scheduled 2023-01-04 INFLUENZA VACCINE [facility] Test 19:22:11 [code = INFLUENZA VACCINE] Future Scheduled 2023-01-04 COVID-19 VACCINE (#1) [facility] 19:22:11 [code = COVID-19 VACCINE (#1)] Future Scheduled 2023-01-04 SHINGLES VACCINES (1 [facility] Test 19:22:11 of 2) [code = SHINGLES VACCINES (1 of 2)] Future Scheduled 2023-01-04 65+ PNEUMOCOCCAL [facility] Test 19:22:11 VACCINE (1 - PCV) [code = 65+ PNEUMOCOCCAL VACCINE (1 - PCV)] Future Scheduled 2023-01-04 INFLUENZA VACCINE [facility] Test 19:22:11 [code = INFLUENZA VACCINE] Future Scheduled 2023-01-04 COVID[facility]19 [facility] 19:22:11 [code = COVID-19 VACCINE (#1)] Future Scheduled 2023-01-04 SHINGLES VACCINES (1 [facility] Test 19:22:11 of 2) [code = SHINGLES VACCINES (1 of 2)] Future Scheduled 2023-01-04 65+ PNEUMOCOCCAL [facility] Test 19:22:11 VACCINE (1 - PCV) [code = 65+ PNEUMOCOCCAL VACCINE (1 - PCV)] Future Scheduled 2023-01-04 INFLUENZA VACCINE [facility] Test 19:22:11 [code = INFLUENZA VACCINE] Future Scheduled 2023-01-04 COVID-19 VACCINE (#1) [facility] Test 19:22:11 [code = COVID-19 VACCINE (#1)] Future Scheduled 2022-08-03 HEPATITIS B VACCINES [facility] Test 19:25:23 (1 of 3 - 3-dose series) [code = HEPATITIS B VACCINES (1 of 3 - 3-dose series)] Future Scheduled 2022-08-03 COVID-19 VACCINE (#1) [facility] Test 19:25:23 [code = COVID-19 VACCINE (#1)] Future Scheduled 2022-08-03 SHINGLES VACCINES (1 [facility] Test 19:25:23 of 2) [code = SHINGLES VACCINES (1 of 2)] Future Scheduled 2022-08-03 65+ PNEUMOCOCCAL [facility] Test 19:25:23 VACCINE (1 - PCV) [code = 65+ PNEUMOCOCCAL VACCINE (1 - PCV)] Future Scheduled 2022-08-03 INFLUENZA VACCINE [facility] Test 19:25:23 [code = INFLUENZA VACCINE] Future Scheduled 2021-09-21 COVID-19 VACCINE (1) [facility] Test 12:31:11 [code = COVID-19 VACCINE (1)] Future Scheduled 2021-09-21 SHINGLES VACCINES (#1) [facility] Test 12:31:11 [code = SHINGLES VACCINES (#1)] Future Scheduled 2021-09-21 65+ PNEUMOCOCCAL [facility] Test 12:31:11 VACCINE (1 of 1 - PPSV23) [code = 65+ PNEUMOCOCCAL VACCINE (1 of 1 - PPSV23)] Future Scheduled 2021-09-21 INFLUENZA VACCINE [facility] Test 12:31:11 [code = INFLUENZA VACCINE] Encounters Start End Encounter Admission Attending Care Care Encounter Source Date/Time Date/Time Type Type Clinicians Facility Department ID 2022-01-04 2022-01-04 Inpatient VIRAL Dominguez OUTD [id number] [facility] 05:18:00 05:18:00 Александр 40 [facility] 2021-11-02 2021-11-02 Inpatient VIRAL Dominguez INTE.02 [id number] [facility] 12:31:00 18:10:00 Александр 44 [facility] 2020-08-23 2020-08-23 Laboratory Only, Adc [facility] [id number] 11:51:19 12:06:19 Only Test [place] 350.1.13.10 Sebastián 4.2.7.2.686 [place] [id number] 2020-08-23 2020-08-23 Outpatient R [facility] [id number] [facility] 12:00:00 12:00:00 ity of [facility] 2020-08-23 2020-08-23 Orders Doctor TAMMY [id number] 00:00:00 00:00:00 Only Unassigned, JENA 350.1.13.10 [place] [id number] Results Test Description Test Time Test Comments Results Result Comments Source Novel Coronavirus 2019 Inhouse 2022-01-03 01:14:00 Test Item Value Reference Range Interpretation Comme nts Novel Coronavirus 2018 Negative Negative Posit bola results are indicative of the Inhouse (test code = presenc e bpAVVE-OjI-8 RNA, clinical COVNONPUI) correlation wit h patient [...] qualitative detection of nucleic acid s from gywSHJB-ZmP-9 virus and diagn osis of SARS-CoV-2 virusinfection. It is an Emergency Use Authorization ( EUA) testauthorized by the U.S. FDA. BASIC METABOLIC [id number] 13:59:00 Test Item Value Reference Range Interpretation [...] = 10.1 mg/dL 8.0-10.5 N CA) PROTHROMBIN [id number] 13:46:00 Test Item Value Reference Range Interpretation [...] (to prevent recurrent infar ct). 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 It is an Emergency Use Authorization ( EUA) testauthorized by the U.S. FDA. BASIC METABOLIC [id number] 13:51:00 Test Item Value Reference Range Interpretation [...] code = 10.1 mg/dL 8.0-10.5 N CA) [id number] 13:51:00 Test Item Value Reference Range Interpretation Comments PREALBUMIN (test code = PREALB) 25.8 mg/dL 16.0-40.0 N PROTHROMBIN [id number] 13:44:00 Test Item Value Reference Range Interpretation [...] (to prevent recurrent infar ct). CBC W/AUTO [id number] 13:35:00 Test Item Value Reference Range Interpretation [...] Notes Date/Time Note Provider Source 2022-01-18 13:24:00-00:00 [id number] [place] [address] PATIENT NAME: BISMARK HARRISON ADMIT DATE: 01/04/22 ACCOUNT NO: [id number] ROOM NO: AGE: 86 REPORT TYPE: eTRANSESOPHAGEAL ECHO REPORT SEX: F ADMITTING PHYSICIAN: ATTENDING PHYSICIAN:Александр Briggs MD *[address] [address] Transesophageal Echocardiogram Patient: Bismark Harrison Study Date: 01/04/2022 BP: 131 / 62 Location: [facility] URN: [id number] 2039 : 1935 Age: 86 Height: 63 in / 160 cm Gender: F Weight: 169 .6 lb / 77.1 kg BMI/BSA: 30.1 kg/m 2 / 1.8 m 2 *Ordering Physician: * Александр Briggs *Interpreting Physician: * Brigitte Fountain MD *Dependency Counselor: * Nelia Romero Indications: POST WATCHMAN. Study [...] benzocaine spray. A transesophageal probe (SN: [id number]) was inserted by the attending building supervisor without difficulty. L ocation: Procedure room. Patient status: Outpatient. Patient room n [facility]: [facility] 11. Study status: Routine. Study completion: The pat ient tolerated the procedure well. There were no complications. Findings PATIENT NAME: BISMARK HARRISON Left ventricle: The cavity size is normal. [...] MD on at 1324 PATIENT NAME: BISMARK HARRISON 2021-11-02 15:31:00-00:00 [id number] [place] [address] PATIENT NAME: BISMARK HARRISON ADMIT DATE: 11/02/21 ACCOUNT NO: [id number] ROOM NO: [place] AGE: 86 REPORT TYPE: eECHOCARDIOGRAM REPORT SEX: F ADMITTING PHYSICIAN:Александр Briggs MD ATTENDING PHYSICIAN:Александр Briggs MD *[place] [address] Transthoracic Echocardiogram Patient: Bismark Harrison Study Date: 11/02/2021 BP: Location: [facility] URN: [id number] 844 : 1935 Age: 86 Height: 63 in / 160 cm Gender: F Weight: 163 lb / 74.1 kg BMI/BSA: 28.9 kg/m 2 / 1.84 m 2 *Ordering Physician: * Teodoro Reyes *Interpreting Physician: * Malgorzata Salazar MD *Dependency Counselor: Jessie Dotson RDCS Indications: R/O PERICARDIAL EFFUSION. Study data: Transthoracic echocardiogram. Comple te 2D, complete spectral Doppler, and color Doppler. Location: [facility]. Patient status: Inpatient. Patient room number: CVPREP. Study status: DAYANA. Findings Left ventricle: Wall thickness is mildly increas ed. The estimated ejection fraction is 55-59%. Mitral valve: There is mild to moderate regurgit ation. Tricuspid valve: There is mild regurgitation. Pericardium: A prominent pericardial fat pad is present. A small pericardial effusion is identified posterior to the heart. PATIENT NAME: BISMARK HARRISON Measurements Left ventricle Value Ref RICKIE, LAX [...] 0 11/02/21 at 1531 PATIENT NAME: BISMARK HARRISON 2021-11-02 14:09:00-00:00 [facility] ([facility] Discharge Summary REPORT#:[id number] REPORT STATUS: Signed DATE:11/02/21 TIME: 1409 PATIENT: BISMARK HARRISON UNIT #: [id number] ROOM/BED: [place] [address] : 34 AGE: 86 SEX: F ATTEND: Mera Briggs MD ADM AUTHOR: Teodoro Reyes * ALL edits or amendments must be made on the iWeeb[employer]/computer document * PCP PCP Discharge to: home [...] stable. 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 No infect ion, bleeding, or hematoma. Dermabond applied and intact. Patient was provided with post-Watchman discharg e instructions. Patient is to follow up with PCP and building supervisor in 1 to 2 we eks post discharge. Patient is to follow up with building supervisor for th e 45-day KIA, and for [...] breath, lightheadedness, or dizzi ness to the building supervisor. 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 No infect ion, bleeding, or hematoma. Dermabond applied and intact. Treatments Procedures Treatments Procedures: Left atrial appendage closure using 27-mm Watchm an FLX closure device. Discharge Instructions PCP PCP: PCP: Noel Davis MD )( Discharge to: Home/Self Care Discharge Instructions Additional Discharge Routines: Attending Follow- Up )( Diet: Cardiac )( Activity: As Tolerated Follow-up Appointments Attending Physician: Attending Physician: Александр Briggs MD Attending physician follow up timeframe: In 1-2 weeks Electronically Signed by Teodoro Reyes o n 11/03/21 at 1102 Electronically Signed by Александр Briggs MD on 11/22 at 0946 RPT #:[id number] END OF REPORT 2021-11-02 10:58:00-00:00 [id number] [place] [address] PATIENT NAME: BISMARK HARRISON ADMIT DATE: 11/02/21 ACCOUNT NO: [id number] [facility]GE: 86 REPORT TYPE: CARDIAC CATHETERIZATION REPORT SEX: F ADMITTING PHYSICIAN:Александр Briggs MD ATTENDING PHYSICIAN:Александр Briggs MD PROCEDURE DATE: 11/02/2021 PROCEDURE PERFORMED: Left atrial appendage closu re using 27-mm Watchman FLX closure device. INDICATIONS: Atrial fibrillation, high CHADS-VAS c score and inability to take anticoagulant. ACCESS: Right femoral vein, 16-Bahraini closed wit h ljplrq-pv-ilrxg suture. COMPLICATIONS: None. BLEEDING: Less than 50 mL. DESCRIPTION OF PROCEDURE: After risks, benefits, and alternatives were explained, the patient agreed to proceed and sig zakcary informed consent. The patient was brought into [facility] catheterization laboratory, prepped and draped in usual sterile fashion. Then, we accessed [facility] femoral vein using a micropuncture kit under ultrasound guidance and placed an 8-Bahraini [place] sheath, then upgraded to 16- Bahraini sheath, gave partial dose of heparin and took SL1 sheath into the SVC with [place] needle insid e under fluoroscopy, KIA guidance, [...] was introduced and then delivered into t he left atrial appendage successfully. PASS criteria were evaluated and met. As such, the device was released and then removed the delivery system and Watchman sheath and the sheath was removed. A hkdtsw-db-hhdam suture was p laced with good hemostasis. A full dose heparin was given throughout the procedure to assure ACT lev el above 250. CONCLUSION: Successful left atrial appendage fabian sure using 27-mm Watchman FLX closure device. Dictated By: Александр Briggs MD WT: CATH:CHICHI/RICH/RHIANNON PATIENT NAME: BISMARK HARRISON Conf#: [id number]#: [id number] Authenticated by Александр Briggs MD On 11/09/2021 12:30:13 PM Electronically Signed by Александр Briggs MD on at 1230 PATIENT NAME: BISMARK HARRISON 2021-10-31 12:27:00-00:00 [id number] [place] [address] PATIENT NAME: BISMARK HARRISON ADMIT DATE: ACCOUNT NO: [id number] ROOM NO: AGE: 86 REPORT TYPE: eELECTROCARDIOGRAM REPORT SEX: F ADMITTING PHYSICIAN: ATTENDING PHYSICIAN:Александр Briggs MD Order: [id number] Test Reason : PREOP Test Date/Time Stamp: [...] No previous ECGs available Confirmed by JIE LEON, PÉREZ ([id number]) on 10/31/19 2:27:17 PM Referred By: Александр Briggs Confirmed by:PÉREZ RANDHAWA MD at 1427 PATIENT NAME: BISMARK HARRISON
[2023-02-19] MEDS ORDERED: NA CHLORIDE 0.9% 500 ML ONE (14:27)
[2023-02-19] MEDS ORDERED: ONDANSETRON 4 MG/2 ML VIAL ONE (14:27)
[2023-02-19] MEDS ORDERED: dilTIAZem HCL 25 MG/5 ML VIAL IV ONE ×2 (14:28→16:49)
[2023-02-19 14:30] LABS: Absolute Lymphocytes (CBC) 1.4 K/uL (0.7-4.9); Hematocrit 36.1 % (36.0-45.0); Lymphocytes % 20.4 % (15.3-44.8); MCV 95.2 fL (80-100); MPV 7.3 fL (7.6-11.3); RBC Red Blood Cell Count 3.79 M/uL (3.86-4.86)
[2023-02-19 14:49] LABS: Protime INR 0.86
[2023-02-19 14:56] LABS: Albumin 3.1 g/dL (3.4-5.0); Bilirubin Total 0.6 mg/dL (0.2-1.0); Magnesium 2.2 mg/dL (1.6-2.4); Potassium 3.3 mEq/L (3.5-5.1); Protein, Total 6.8 g/dL (6.4-8.2); Thyroid Stimulating Hormone 2.44 uIU/mL (0.358-3.740); Troponin High Sensitivity 21.9 pg/mL (<58.9)
--- NOTE | 2023-02-19 15:03 | RAD REPORT ---
EXAM DESCRIPTION: CTAbdomen Pelvis W Contrast - 02/19/2023 2:49 pm CLINICAL HISTORY: Abdominal pain. ABD PAIN COMPARISON: <Comparisons> TECHNIQUE: Biphasic CT imaging of the abdomen and pelvis was performed with 100 ml non-ionic IV cont rast. All CT scans are performed using dose optimization technique as appropriate and may include automated exposure control or mA/KV adjustment according to patient size. FINDINGS: Emphysematous lung bases. Small hiatal hernia. Mild diffuse fatty liver. Small low-density liver lesions likely cysts. The spleen, pancreas, adrenal glands and kidneys are within normal limits. No bowel obstruction, free air, free fluid or abscess. Sigmoid diverticulosis coli without diverticul itis. Atherosclerosis. The appendix is normal. No evidence of significant lymphadenopathy. Postsurgical changes lumbar spine. IMPRESSION: No acute intra-abdominal or pelvic finding. Mild fatty liver. Low-density liver lesions are nonspecific but favored to be benign. Mild sigmoid diverticulosis coli without diverticulitis. Postsurgical lumbar spine with hardware in place.
--- NOTE | 2023-02-19 15:45 | RAD REPORT ---
EXAM DESCRIPTION: RAD - Chest Single View - 02/19/2023 3:35 pm CLINICAL HISTORY: tachycardia Chest pain. COMPARISON: <Comparisons> FINDINGS: Portable technique limits examination quality. The lungs are grossly clear. The heart is mildly enlarged with dual lead pacer device present. No dis placed fractures. IMPRESSION: No acute intrathoracic process suspected.
--- NOTE | 2023-02-19 16:37 | EDPHYS ---
Physician Documentation [facility] Name: Bismark Clayton Age: 87 yrs Sex: Female : 1935 Arrival Date: 02/19/2023 Time: 13:09 Bed 15 Private MD: ED Physician Cash Borrego HPI: 02/19 17:03 This 87 yrs old Female presents to ER via EMS with complaints of Shingles. rt 17:03 Patient presents to the ED with nausea, vomiting. Patient states that she was recently rt diagnosed with shingles, was prescribed antiviral medications, however, was unable to take them due to nausea vomiting. She reports generalized abdominal pain. Denies other acute complaints at this time. Symptoms are moderate severity, no other aggravating alleviating factors.. Historical: - Allergies: 13:28 Mobic (ringing in ears, balance not good); ph 13:28 Morphine; ph - PMHx: 13:28 Diverticulitis; Headaches; Hyperlipidemia; Migraines; neuropathy; Osteoporosis; Sleep ph Apnea; - PSHx: 13:28 pacemaker; ph - Immunization history:: Adult Immunizations unknown. - Social history:: Smoking status: Patient denies any tobacco usage or history of. - Family history:: not pertinent. ROS: 17:03 Constitutional: Negative for fever, chills, and weight loss, Cardiovascular: Negative rt for chest pain, palpitations, and edema, Respiratory: Negative for shortness of breath, cough, wheezing, and pleuritic chest pain, MS/Extremity: Negative for injury and deformity, Neuro: Negative for headache, weakness, numbness, tingling, and seizure, Psych: Negative for depression, anxiety, suicide ideation, homicidal ideation, and hallucinations. 17:03 Abdomen/GI: Positive for abdominal pain, nausea and vomiting. 17:03 Skin: Positive for shingles on chest. Exam: 17:03 Constitutional: This is a well developed, well nourished patient who is awake, alert, rt and in no acute distress. Cardiovascular: Regular rate and rhythm with a normal S1 and S2. No gallops, murmurs, or rubs. Normal PMI, no JVD. No pulse deficits. Respiratory: Lungs have equal breath sounds bilaterally, clear to auscultation and percussion. No rales, rhonchi or wheezes noted. No increased work of breathing, no retractions or nasal flaring. Abdomen/GI: Soft, non-tender, with normal bowel sounds. No distension or tympany. No guarding or rebound. No evidence of tenderness throughout. Skin: Warm, dry with normal turgor. Normal color with no rashes, no lesions, and no evidence of cellulitis. MS/ Extremity: Pulses equal, no cyanosis. Neurovascular intact. Full, normal range of motion. Psych: Awake, alert, with orientation to person, place and time. Behavior, mood, and affect are within normal limits. 17:03 Chest/axilla: Shingles rash noted to the left anterior chest. 17:03 ECG was reviewed by the Attending Physician. 17:03 Skin: Shingles rash present. Vital Signs: 13:27 BP 112 / 81; Pulse 62; Resp 18; Temp 98.1; Pulse Ox 95% on R/A; Weight 63.5 kg; Height ph 5 ft. 3 in. ; 14:00 BP 113 / 73; Pulse 112; Resp 15; Pulse Ox 96% on R/A; eh3 14:30 BP 115 / 75; Pulse 120; Resp 16; Pulse Ox 97% on R/A; eh3 15:00 BP 135 / 72; Pulse 105; Resp 15; Pulse Ox 98% on R/A; eh3 15:30 BP 136 / 104; Pulse 106; Resp 15; Pulse Ox 95% on R/A; eh3 16:00 BP 131 / 85; Pulse 107; Resp 15; Pulse Ox 95% on R/A; eh3 16:30 BP 134 / 98; Pulse 109; Resp 15; Pulse Ox 96% on R/A; eh3 17:00 BP 129 / 75; Pulse 97; Resp 15; Pulse Ox 95% on R/A; eh3 17:30 BP 146 / 85; Pulse 105; Resp 16; Pulse Ox 96% on R/A; eh3 13:27 Body Mass Index 24.80 (63.50 kg, 160.02 cm) ph MDM: 13:37 Patient medically screened. rt 17:03 Differential diagnosis: Nonspecific abd pain, pancreatitis, appendicitis, rt gastroenteritis. Data reviewed: vital signs, nurses notes. Consideration of Admission/Observation Patient was admitted/placed on observation. Management of patient was discussed with the following: Primary Care Provider: Agrees to admit. I considered the following discharge prescriptions or medication management in the emergency department Medications were administered in the Emergency Department. See MAR. Care significantly affected by the following chronic conditions: Atrial fibrillation,. Counseling: I had a detailed discussion with the patient and/or guardian regarding: the historical points, exam findings, and any diagnostic results supporting the discharge/admit diagnosis, lab results, radiology results, the need for further work-up and treatment in the hospital. Response to treatment: the patient's symptoms have markedly improved after treatment. 02/19 14:06 Order name: CBC with Diff; Complete Time: 15:50 rt 02/19 14:06 Order name: CMP; Complete Time: 15:50 rt 02/19 14:06 Order name: Troponin High Sensitivity; Complete Time: 15:50 rt 02/19 14:06 Order name: Lipase; Complete Time: 15:50 rt 02/19 14:06 Order name: Blood Culture Adult (2) rt 02/19 14:06 Order name: Lactate w/ 2H reflex if indic.; Complete Time: 15:50 rt 02/19 14:06 Order name: Protime (+inr); Complete Time: 15:50 rt 02/19 14:06 Order name: Ptt, Activated; Complete Time: 15:50 rt 02/19 14:06 Order name: Urinalysis w/ reflexes rt 02/19 14:06 Order name: Magnesium; Complete Time: 15:50 rt 02/19 14:06 Order name: TSH; Complete Time: 15:50 rt 02/19 14:06 Order name: Chest Single View XRAY; Complete Time: 15:50 rt 02/19 14:06 Order name: CT Abd/Pelvis - IV Contrast Only; Complete Time: 15:50 rt 02/19 14:06 Order name: EKG; Complete Time: 14:07 rt 02/19 16:44 Order name: CONS Physician Consult EDMS 02/19 14:06 Order name: Accucheck; Complete Time: 14:35 rt 02/19 14:06 Order name: Cardiac monitoring; Complete Time: 14:34 rt 02/19 14:06 Order name: EKG - Nurse/Tech; Complete Time: 14:30 rt 02/19 14:06 Order name: IV Saline Lock - Large Bore; Complete Time: 14:29 rt 02/19 14:06 Order name: Labs collected and sent; Complete Time: 14:29 rt 02/19 14:06 Order name: O2 Per Protocol; Complete Time: 14:34 rt 02/19 14:06 Order name: O2 Sat Monitoring; Complete Time: rt 02/19 14:06 Order name: Vital Signs; Complete Time: 14:34 rt EC:03 Rate is 138 beats/min. Rhythm is irregularly irregular, A fib with No ectopy, Rapid rt ventricular response, Rate related ST and T wave changes. QRS [place] is Normal. CT interval is normal. QRS interval is normal. QT interval is normal. No Q waves. Interpreted by me. Administered Medications: 14:30 Drug: NS 0.9% IV 500 ml Route: IV; Rate: bolus; Site: right antecubital; 3 16:00 Follow up: IV Status: Completed infusion; IV Intake: 500ml eh3 14:30 Drug: Ondansetron IVP 4 mg Route: IVP; Site: right antecubital; eh3 15:30 Follow up: Response: No adverse reaction 3 14:30 Drug: Diltiazem IVP 10 mg Route: IVP; Site: right antecubital; eh3 15:30 Follow up: Response: No adverse reaction eh3 17:00 Drug: Diltiazem IVP 10 mg Route: IVP; Site: right antecubital; eh3 18:00 Follow up: Response: No adverse reaction 3 17:30 Drug: Acyclovir IVPB 10 mg/kg Route: IVPB; Site: right antecubital; eh3 18:00 Follow up: Response: No adverse reaction; IV Status: Infusion continued upon admission; 3 IV Intake: 50ml Disposition Summary: 02/19/23 16:36 Hospitalization Ordered Hospitalization Status: Observation rt Provider: Noel Davis rt Location: Telemetry/[facility] (observation) rt Condition: Stable rt Problem: new rt Symptoms: have improved rt Bed/Room Type: Standard rt Room Assignment: 222(02/19/23 17:30) bd Diagnosis - Nausea with vomiting, unspecified rt - Unspecified atrial fibrillation rt - shingles rt Forms: - Medication Reconciliation Form rt - SBAR form rt Critical care time excluding procedures: 17:08 Critical care time: Bedside Care: 30 minutes, Consultation: 5 minutes. Total time: 35 rt minutes Signatures: Dispatcher [employer] Adrienne Fleming Patricia, RN RN ph Roxana Ang RN RN 3 Cash Borrego MD MD rt Corrections: (The following items were deleted from the chart) 17: 16:36 rt bd 17:30 17:09 229 bd bd
--- NOTE | 2023-02-19 16:37 | ER ---
Nurse's Notes [facility] Name: Bismark Clayton Age: 87 yrs Sex: Female : 1935 Arrival Date: 02/19/2023 Time: 13:09 Bed 15 Private MD: Diagnosis: Nausea with vomiting, unspecified;Unspecified atrial fibrillation;shingles Presentation: 02/19 13:27 Chief complaint: Patient states: Shingles rash to L flank and chest, also reports N/V, ph unable to tolerate PO fluids at home, VSS, HR irregular for EMS, hx of atrial fibrillation. Coronavirus screen: Vaccine status: Patient reports receiving the 2nd dose of the covid vaccine. Ebola Screen: No symptoms or risks identified at this time. Initial Sepsis Screen: Does the patient meet any 2 criteria? No. Patient's initial sepsis screen is negative. Does the patient have a suspected source of infection? No. Patient's initial sepsis screen is negative. Risk Assessment: Do you want to hurt yourself or someone else? Patient reports no desire to harm self or others. Onset of symptoms was February 19, 2023. 13:27 Method Of Arrival: EMS: [facility] ph 13:27 Acuity: GAURAV 3 ph Historical: - Allergies: 13:28 Mobic (ringing in ears, balance not good); ph 13:28 Morphine; ph - PMHx: 13:28 Diverticulitis; Headaches; Hyperlipidemia; Migraines; neuropathy; Osteoporosis; Sleep ph Apnea; - PSHx: 13:28 pacemaker; ph - Immunization history:: Adult Immunizations unknown. - Social history:: Smoking status: Patient denies any tobacco usage or history of. - Family history:: not pertinent. Screenin:32 [facility] ED Fall Risk Assessment (Adult) Score/Fall Risk Level 0 - 2 = Low Risk. Abuse eh3 screen: Denies threats or abuse. Denies injuries from another. Nutritional screening: No deficits noted. Tuberculosis screening: No symptoms or risk factors identified. Assessment: 13:32 General: Appears in no apparent distress. uncomfortable, Behavior is calm, cooperative, eh3 appropriate for age. Pain: Complains of pain in chest. Neuro: Level of Consciousness is awake, alert, obeys commands, Oriented to person, place, time, situation. Cardiovascular: Capillary refill < 3 seconds Patient's skin is warm and dry. Respiratory: Airway is patent Respiratory effort is even, unlabored, Respiratory pattern is regular, symmetrical. GI: Abdomen is round non-distended, Reports intolerance of fluids, intolerance of food, nausea, vomiting. : No signs and/or symptoms were reported regarding the genitourinary system. EENT: No signs and/or symptoms were reported regarding the EENT system. Derm: Skin is pink, warm \T\ dry. Rash noted that is red, raised, on chest. Musculoskeletal: Circulation, motion, and sensation intact. 14:00 Reassessment: Patient appears in no apparent distress at this time. Patient and/or eh3 family updated on plan of care and expected duration. Pain level reassessed. Patient is alert, oriented x 3, equal unlabored respirations, skin warm/dry/pink. 15:00 Reassessment: Patient appears in no apparent distress at this time. Patient and/or eh3 family updated on plan of care and expected duration. Pain level reassessed. Patient is alert, oriented x 3, equal unlabored respirations, skin warm/dry/pink. 16:00 Reassessment: Patient appears in no apparent distress at this time. Patient and/or eh3 family updated on plan of care and expected duration. Pain level reassessed. Patient is alert, oriented x 3, equal unlabored respirations, skin warm/dry/pink. 17:00 Reassessment: Patient appears in no apparent distress at this time. Patient and/or eh3 family updated on plan of care and expected duration. Pain level reassessed. Patient is alert, oriented x 3, equal unlabored respirations, skin warm/dry/pink. Vital Signs: 13:27 BP 112 / 81; Pulse 62; Resp 18; Temp 98.1; Pulse Ox 95% on R/A; Weight 63.5 kg; Height ph 5 ft. 3 in. ; 14:00 BP 113 / 73; Pulse 112; Resp 15; Pulse Ox 96% on R/A; eh3 14:30 BP 115 / 75; Pulse 120; Resp 16; Pulse Ox 97% on R/A; eh3 15:00 BP 135 / 72; Pulse 105; Resp 15; Pulse Ox 98% on R/A; eh3 15:30 BP 136 / 104; Pulse 106; Resp 15; Pulse Ox 95% on R/A; eh3 16:00 BP 131 / 85; Pulse 107; Resp 15; Pulse Ox 95% on R/A; eh3 16:30 BP 134 / 98; Pulse 109; Resp 15; Pulse Ox 96% on R/A; eh3 17:00 BP 129 / 75; Pulse 97; Resp 15; Pulse Ox 95% on R/A; eh3 17:30 BP 146 / 85; Pulse 105; Resp 16; Pulse Ox 96% on R/A; eh3 13:27 Body Mass Index 24.80 (63.50 kg, 160.02 cm) ED Course: 13:11 Patient arrived in ED. rg4 13:12 Cash Borrego MD is Attending Physician. rt 13:28 Triage completed. 13:29 Arm band placed on Patient placed in waiting room, Patient notified of wait time. 13:32 Roxana Ang, RN is Primary Nurse. [facility] 13:32 Patient has correct armband on for positive identification. Bed in low position. Call [facility] light in reach. Side rails up X2. Adult w/ patient. Client placed on continuous cardiac and pulse oximetry monitoring. NIBP monitoring applied. Door closed. Noise minimized. Lights dimmed. Warm blanket given. Pillow given. 14:10 Radiology exam delayed due to IV insertion attempt and/or patient not having [id number] appropriate IV at this time. 14:10 Inserted saline lock: 22 gauge in right antecubital area, using aseptic technique. zm Blood collected. 14:10 First set of blood cultures drawn by ms. zm 14:10 Initial lab(s) drawn, by ms, sent to lab. zm 14:25 Second set of blood cultures drawn by ms. zm 14:30 Lipase Sent. zm 14:30 Troponin High Sensitivity Sent. zm 14:30 CMP Sent. zm 14:30 CBC with Diff Sent. zm 14:30 Ptt, Activated Sent. zm 14:30 Protime (+inr) Sent. zm 14:30 Lactate w/ 2H reflex if indic. Sent. zm 14:30 Blood Culture Adult (2) Sent. zm 14:50 CT Abd/Pelvis - IV Contrast Only In Process Unspecified. EDMS 15:37 Chest Single View XRAY In Process Unspecified. EDMS 16:35 Noel Davis MD is Hospitalizing Provider. rt 17:47 No provider procedures requiring assistance completed. Patient admitted, IV remains in [facility] place. Administered Medications: 14:30 Drug: NS 0.9% IV 500 ml Route: IV; Rate: bolus; Site: right antecubital; [facility] 16:00 Follow up: IV Status: Completed infusion; IV Intake: 500ml [facility] 14:30 Drug: Ondansetron IVP 4 mg Route: IVP; Site: right antecubital; 3 15:30 Follow up: Response: No adverse reaction [facility] 14:30 Drug: Diltiazem IVP 10 mg Route: IVP; Site: right antecubital; [facility] 15:30 Follow up: Response: No adverse reaction [facility] 17:00 Drug: Diltiazem IVP 10 mg Route: IVP; Site: right antecubital; [facility] 18:00 Follow up: Response: No adverse reaction [facility] 17:30 Drug: Acyclovir IVPB 10 mg/kg Route: IVPB; Site: right antecubital; 3 18:00 Follow up: Response: No adverse reaction; IV Status: Infusion continued upon admission; [facility] IV Intake: 50ml Medication: 17:47 VIS not applicable for this client. [facility] Intake: 16:00 IV: 500ml; Total: 500ml. [facility] 18:00 IV: 50ml; Total: 550ml. [facility] Outcome: 16:36 Decision to Hospitalize by Provider. rt 17:47 Admitted to Med/surg accompanied by tech, via wheelchair, room 222, Report called to [facility] Viri 17:47 Condition: stable 17:47 Instructed on the need for admit. 18:12 Patient left the ED. [facility] Signatures: Dispatcher [employer] EDOK Christy Ang RN RN ph Garcia, Rubi rg4 Roxana Ang, GINO RN 3 Lidia Johnson Juliet [id number] Cash Borrego MD MD rt Corrections: (The following items were deleted from the chart) 14:31 14:29 Inserted saline lock: 22 gauge in right antecubital area, using aseptic technique. Blood collected. 14:32 14:31 Initial lab(s) drawn, by ms, sent to lab. [facility] 17:45 14:08 Roxana Ang, RN is Primary Nurse. [place] [id number]
[2023-02-19] MEDS ORDERED: ACYCLOVIR IVPB ONE (17:00)
[2023-02-19] MEDS ORDERED: NA CHLORIDE 0.9% IVPB ONE (17:00)
[2023-02-19 18:31] VITALS: BMI 24.7
[2023-02-19] MEDS ORDERED: ONDANSETRON 4 MG/2 ML VIAL IV PRN (18:32)
[2023-02-19] MEDS ORDERED: SOTALOL HCL 80 MG TAB PO ONE (22:54)
[2023-02-19] MEDS: D5W 1,000 ML IV SCH (23:16)
[2023-02-20 02:24] LABS: Urine Bacteria <20 /HPF (<20); Urine Bilirubin NEGATIVE (Negative); Urine Blood Negative (Negative); Urine Clarity Clear (Clear); Urine Color Light-Yellow (Yellow); Urine Glucose NEGATIVE (Negative); Urine Mucus Slight /HPF (None Seen); Urine Protein TRACE (Negative); Urine RBC <5 /HPF (None Seen); Urine Urobilinogen Normal (Normal); Urine pH 6.5 (5.0-7.0)
[2023-02-20 02:26] LABS: Specific Gravity > 1.035 (1.005-1.030)
[2023-02-20] MEDS ORDERED: ACYCLOVIR INJ 600 MG in NA CHLORIDE 0.9% 100 ML IVPB SCH (03:00)
[2023-02-20 03:49] LABS: Absolute Lymphocytes (CBC) 1.7 K/uL (0.7-4.9); Hematocrit 36.6 % (36.0-45.0); Lymphocytes % 21.1 % (15.3-44.8); MCV 94.5 fL (80-100); RBC Red Blood Cell Count 3.87 M/uL (3.86-4.86)
[2023-02-20 04:03] LABS: Albumin 2.8 g/dL (3.4-5.0); Bilirubin Total 0.5 mg/dL (0.2-1.0); Potassium 3.3 mEq/L (3.5-5.1); Protein, Total 6.1 g/dL (6.4-8.2)
[2023-02-20 04:52] LABS: Blood Morphology Comment NOT SEEN (NOT SEEN); Platelet Estimate ADEQ; White Blood Cell Scan OK (OK)
[2023-02-20] MEDS: ACYCLOVIR INJ 600 MG in NA CHLORIDE 0.9% 100 ML IVPB SCH ×2 (05:53→17:26)
[2023-02-20] MEDS: SOTALOL HCL 80 MG TAB PO SCH ×3 (08:05→21:46)
[2023-02-20] MEDS: DICYCLOMINE HCL 10 MG CAP PO SCH ×2 (09:57→21:46)
--- NOTE | 2023-02-20 11:20 | PN ---
Date of Progress Note: 02/20/2023 Patient states she feels considerably better this morning. IV fluids were started overnight. Electr olyte correction has also been taken place. 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 This w ill be continued as well as the IV. She still have some loose stools. However, her appetite is star ting to return. We will increase her diet and possibly she might be able to be discharged in the a.m . HR/MODL Voice ID: [id number] Report ID: [id number]
[2023-02-20] MEDS: GABAPENTIN 100 MG CAP PO SCH ×2 (17:26→21:47)
--- NOTE | 2023-02-21 05:00 | EKG ---
Test Date: 2023-02-19 Test Time: 13:58:13 Multimedia Manager: LAUREN MEASUREMENT RESULTS: Intervals: Rate: 138 HI: QRSD: 84 QT: 318 QTc: 481 Meno: P: HI: QRS: 81 T: -63 INTERPRETIVE STATEMENTS: Atrial fibrillation with premature ventricular or aberrantly conducted complexes Marked ST abnormality, possible inferior subendocardial injury Abnormal ECG Compared to ECG 02/14/2023 14:17:58 Ventricular premature complex(es) now present Sinus rhythm no longer present ST (T wave) deviation still present Electronically Signed On 02-21-23 04:54:44 CDT by Franc Kebede
[2023-02-21] MEDS: ACYCLOVIR INJ 600 MG in NA CHLORIDE 0.9% 100 ML IVPB SCH ×2 (05:25→17:25)
[2023-02-21] MEDS: D5W 1,000 ML IV SCH ×2 (08:20→11:46)
[2023-02-21] MEDS: SOTALOL HCL 80 MG TAB PO SCH ×3 (09:31→21:15)
[2023-02-21] MEDS: DICYCLOMINE HCL 10 MG CAP PO SCH ×3 (09:32→21:15)
[2023-02-21] MEDS: GABAPENTIN 100 MG CAP PO SCH ×2 (09:32→21:15)
--- NOTE | 2023-02-21 10:52 | CON ---
Date of Consultation: 02/20/2023 Reason For Consultation: Chronic atrial fibrillation. History Of Present Illness: Ms. Clayton is 87. Has a history of pacemaker, sleep apnea, migraine, an d dyslipidemia. Was admitted because of shingles. She is on IV acyclovir. Has no cardiac symptoms. She takes sotalol 40 3 times a day for her atrial fibrillation. Her heart rate is normally control led. With her shingles, her heart rate is in the 120s. Potassium was 3.3. No cardiac symptoms repo rted. Denied palpitation, syncope. Denied nausea, vomiting, or diaphoresis. Denied fever or chills . Has had chest pain because of the shingles. Allergies: TO MORPHINE, MELOXICAM. Medications: At home includes aspirin, Lasix, Lyrica, and sotalol. Review of Systems: Negative. Social History: Negative. Family History: Negative. Physical Examination: Vital Signs: She was in AFib, heart rate of 123, blood pressure is adequate. Afebrile. General: Pleasant. No acute distress. HEENT: Negative. Neck: Supple. No bruit. Chest: Clear. Cardiac: Revealed atrial fibrillation. No murmurs, gallops, or rubs. Abdomen: Benign. Extremities: Revealed no clubbing, cyanosis, or edema. Diagnostic Data: Unremarkable. Impression And Plan: Chronic atrial fibrillation, rapid rate because of the shingles. No need to ch issa her therapy. Continue sotalol 40 t.i.d. Supplement potassium. Her other issues include histor y of pacemaker placement, sleep apnea, dyslipidemia, and migraines. I will make arrangements for her in the office to have the pacemaker checked soon. She is due for that. She can go home whenever it is okay with Dr. Davis. No cardiac plan, otherwise. JU/MODL Voice ID: [id number] Report ID: [id number]
--- NOTE | 2023-02-21 16:05 | RAD REPORT ---
EXAM DESCRIPTION: RAD - Abdomen W Erect - 02/21/2023 3:25 pm CLINICAL HISTORY: Abdominal pain FINDINGS: Free air is not seen. The bowel gas pattern the unremarkable Postsurgical changes involve the lumbar spine. No significant abnormal calcification is displayed
[2023-02-22] MEDS: DICYCLOMINE HCL 10 MG CAP PO SCH ×4 (02:11→20:10)
[2023-02-22 04:36] LABS: Absolute Lymphocytes (CBC) 1.9 K/uL (0.7-4.9); Lymphocytes % 30.2 % (15.3-44.8); MCV 94.1 fL (80-100); MPV 7.9 fL (7.6-11.3); RBC Red Blood Cell Count 4.04 M/uL (3.86-4.86)
[2023-02-22 04:52] LABS: Potassium 3.2 mEq/L (3.5-5.1)
[2023-02-22] MEDS: ACYCLOVIR INJ 600 MG in NA CHLORIDE 0.9% 100 ML IVPB SCH (05:04)
[2023-02-22] MEDS: GABAPENTIN 100 MG CAP PO SCH ×2 (08:48→20:10)
[2023-02-22] MEDS: SOTALOL HCL 80 MG TAB PO SCH ×3 (08:48→20:10)
[2023-02-22] MEDS ORDERED: POTASSIUM 25 MEQ EFFERV TAB PO ONE (09:00)
[2023-02-22] MEDS ORDERED: ZOLPIDEM TARTRATE 5 MG TABLET PO PRN (21:25)
[2023-02-23 00:30] VITALS: O2SAT 96
[2023-02-23] MEDS: DICYCLOMINE HCL 10 MG CAP PO SCH ×2 (03:41→08:46)
[2023-02-23 06:05] LABS: Absolute Lymphocytes (CBC) 1.7 K/uL (0.7-4.9); Hematocrit 34.3 % (36.0-45.0); Lymphocytes % 25.8 % (15.3-44.8); MCV 95.6 fL (80-100); MPV 7.7 fL (7.6-11.3); RBC Red Blood Cell Count 3.59 M/uL (3.86-4.86)
[2023-02-23 06:30] LABS: Potassium 3.6 mEq/L (3.5-5.1)
[2023-02-23] MEDS: GABAPENTIN 100 MG CAP PO SCH (08:46)
[2023-02-23] MEDS: SOTALOL HCL 80 MG TAB PO SCH (08:46)
[2023-02-23 08:50] VITALS: BP 122/79; TEMP 97.6
[2023-02-23] MEDS ORDERED: POTASSIUM CL SA 10 MEQ TAB PO ONE (09:00)
[2023-02-23] MEDS ORDERED: ACETAMINOPHEN 500 MG TAB PO ONE (10:02)
[2023-02-23] MEDS ORDERED: ACETAMINOPHEN 500 MG TAB PO PRN (10:03)
--- NOTE | 2023-02-23 15:17 | PN ---
Date of Progress Note: 02/23/2023 Patient actually overall feels quite a bit better. The diarrhea has stopped. She is improved as far as her appetite is concerned. However, when she woke up, she had obvious torticollis on the right s upraclavicular posterior area which is quite uncomfortable. She was therefore given some Tylenol. S tated she still wanted to go home and I think she could tolerate medication with the addition of Tyle nol Extra Strength and Flexeril on a p.r.n. basis and could be discharged. She was told to decrease her Lasix from t.i.d. to daily until I see her next week and also was given some Bentyl 10 mg on a b. i.d. basis, p.r.n. as well. She could continue according to Cardiology with cardiac medication of Be lesa and to see the patient in the next week and Dr. Kebede or Brigitte will see her in 2 weeks. It was obvious that the shingles had a large effect on her intake and resulted in her dehydration statu s. She was therefore told to continue on her gabapentin. She has a few steroids in the form of pred nisone medication at home as well was completed while in the hospital. Final Diagnoses: Dehydration. Atrial fibrillation, poor control, postherpetic. Shingles. Hypokale art. Torticollis, right, acute onset. Discharged in fair condition. HR/MODL Voice ID: [id number] Report ID: [id number]
== END 2023-02-23 12:23 | disposition home health service (06) | DRG 310 ==
LOC: ER 13:09 → ERHOLD 16:39 → 2ND 17:31 → OBSVTOIN 02-21 14:36
PROVIDERS: ADMIT Family Medicine; ATTEND Family Medicine
DX: I48.20 Chronic atrial fibrillation, unspecified (principal); B02.9 Zoster without complications; E86.0 Dehydration; E78.5 Hyperlipidemia, unspecified; G62.9 Polyneuropathy, unspecified; E87.6 Hypokalemia; M43.6 Torticollis; M81.0 Age-related osteoporosis without current pathological fracture; Z88.5 Allergy status to narcotic agent; Z88.8 Allergy status to other drugs, medicaments and biological substances; Z95.0 Presence of cardiac pacemaker; Z79.82 Long term (current) use of aspirin; Z79.899 Other long term (current) drug therapy
CPT/HCPCS: 36415; 71045; 74019; 74177; 80048; 80053; 81001; 83605; 83690; 83735; 84443; 84484; 85025; 85610; 85730; 87040; 93005; 96361; 96365; 96375; 97116; 97161; 99285; G0378; J0133; J2405; J7040; Q9967

== ENCOUNTER 2023-05-11 16:35 | Emergency (ER) | payer OTHER ==
--- OUTSIDE RECORDS SUMMARY | 2023-05-11 16:38 | XMS REPORT | Continuity of Care Document ---
:1935 Author Organization [facility] t Address [address] [place] [address] Care Team Providers Name Role Phone Asked, No Pcp Primary Care Physician Unavailable Александр Briggs Attending Clinician Unavailable Only, Adc Test Attending Clinician Unavailable Doctor Unassigned, [place] Attending Clinician Unavailable Александр Briggs Admitting Clinician Unavailable Payers Payer Name Policy Type Policy Number Effective Date Expiration Date S guillermina MEDICARE PART A [id number] 1999 \T\ B 00:00:00 [employer] INDEMNITY [id number] 2000 00:00:00 Problems Condition Condition Condition Status Onset Resolution Last Treating Co mments Source Name Details Category Date Date Treatment Clinician Date Syncope Syncope Disease Active 2018-10 [facility] l Allergies, Adverse Reactions, Alerts Allergy Allergy Status Severity Reaction(s) Onset Inactive Treating Comm ents Source Name Type Date Date Clinician morphine DA Active U EXCESSIVE [facility] SEDATION, 10-31 Clear TEMPORARY 00:00: Wahl PARALYSIS 00 [facility] Diphenhy Propensi Active Unknown 2018-10 Metho di [...] Un malka INGREDI 0-24 ity of 00:00: [address] hydrocod DA Active ME FLU LIKE 2008-10 [facility] one SYMPTOMS 0-01 Clear 00:00: Wahl 00 [facility] predniso DA Active ME 2008-10 [facility] ne 0-01 Clear 00:00: Wahl 00 [facility] tetracyc DA Active ME 2008-10 [facility] line 0-01 Clear 00:00: Wahl 00 [facility] gentamic DA Active ME 2008-10 [facility] in 0-01 Clear 00:00: Wahl 00 [facility] Social History Social Habit Start Date Stop Date Quantity Comments Source Gender identity [facility] of Social 2019-08-11 2019-08-11 [facility] function 00:00:00 00:00:00 Sex Assigned At [birth year] [facility] 00:00:00 00:00:00 Smoking Status Start Date Stop Date Source Tobacco smoking consumption unknown [facility] Medications Ordered Filled Start Stop Current Ordering Indication Dosage Frequency Signature Comments Components Source Medication Medication Date Date Medication? Clinician (SIG) Name Name sotalol 2018-10 Yes 40mg [id number] Take 40 mg [facility] (BETAPACE) 10-12 [id number] by mouth [address] 80 MG 10:41: [...] (twelve) emulsion hours. sotalol 2018-10 Yes 40mg Q.[id number] Take 40 mg [facility] (BETAPACE) 1-12 [id number] by mouth [address] 80 MG 10:41: [...] (twelve) emulsion hours. sotalol 2018-10 Yes 40mg Q.[id number] Take 40 mg [facility] (BETAPACE) 1-12 [id number] by mouth [address] 80 MG 10:41: [...] (twelve) emulsion hours. sotalol 2018-10 Yes 40mg Q.[id number] Take 40 mg [facility] (BETAPACE) 1-12 [id number] by mouth [address] 80 MG 10:41: [...] (twelve) emulsion hours. sotalol 2018-10 Yes 40mg Q.[id number] Take 40 mg [facility] (BETAPACE) 1-12 [id number] by mouth [address] 80 MG 10:41: [...] (twelve) emulsion hours. sotalol 2018-10 Yes 40mg Q.[id number] Take 40 mg [facility] (BETAPACE) 1-12 [id number] by mouth [address] 80 MG 10:41: [...] every 12 l ophthalmic (twelve) emulsion hours. Procedures Procedure Date / Time Performed Performing Clinician [facility] erlin [id number] 2021-11-02 00:00:00 [facility] Plan of Care Planned Activity Planned Date Details Comments Source Future Scheduled 2023-05-03 COVID-19 VACCINE (#1) [facility] Test 10:07:54 [code = COVID-19 VACCINE (#1)] Future Scheduled 2023-05-03 SHINGLES VACCINES (1 Met [facility] Test 10:07:54 of 2) [code = SHINGLES VACCINES (1 of 2)] Future Scheduled 2023-05-03 65+ PNEUMOCOCCAL [facility] Test 10:07:54 VACCINE (1 - PCV) [code = 65+ PNEUMOCOCCAL VACCINE (1 - PCV)] Future Scheduled 2023-05-03 INFLUENZA VACCINE [facility] Test 10:07:54 [code = INFLUENZA VACCINE] Future Scheduled 2023-01-04 COVID-19 VACCINE (#1) [facility] Test 19:22:11 [code = COVID-19 VACCINE (#1)] Future Scheduled 2023-01-04 SHINGLES VACCINES (1 Met [facility] Test 19:22:11 of 2) [code = SHINGLES VACCINES (1 of 2)] Future Scheduled 2023-01-04 65+ PNEUMOCOCCAL [facility] Test 19:22:11 VACCINE (1 - PCV) [code = 65+ PNEUMOCOCCAL VACCINE (1 - PCV)] Future Scheduled 2023-01-04 INFLUENZA VACCINE [facility] Test 19:22:11 [code = INFLUENZA VACCINE] Future Scheduled 2023-01-04 COVID-19 VACCINE (#1) [facility] Test 19:22:11 [code = COVID-19 VACCINE (#1)] Future Scheduled 2023-01-04 SHINGLES VACCINES (1 Met [facility] Test 19:22:11 of 2) [code = SHINGLES VACCINES (1 of 2)] Future Scheduled 2023-01-04 65+ PNEUMOCOCCAL [facility] Test 19:22:11 VACCINE (1 - PCV) [code = 65+ PNEUMOCOCCAL VACCINE (1 - PCV)] Future Scheduled 2023-01-04 INFLUENZA VACCINE Method [facility] Test 19:22:11 [code = INFLUENZA VACCINE] Future Scheduled 2023-01-04 COVID-19 VACCINE (#1) [facility] Test 19:22:11 [code = COVID-19 VACCINE (#1)] Future Scheduled 2023-01-04 SHINGLES VACCINES (1 Met [facility] Test 19:22:11 of 2) [code = SHINGLES VACCINES (1 of 2)] Future Scheduled 2023-01-04 65+ PNEUMOCOCCAL [facility] Test 19:22:11 VACCINE (1 - PCV) [code = 65+ PNEUMOCOCCAL VACCINE (1 - PCV)] Future Scheduled 2023-01-04 INFLUENZA VACCINE Method [facility] Test 19:22:11 [code = INFLUENZA VACCINE] Future Scheduled 2022-08-03 HEPATITIS B VACCINES Met [facility] Test 19:25:23 (1 of 3 - 3-dose series) [code = HEPATITIS B VACCINES (1 of 3 - 3-dose series)] Future Scheduled 2022-08-03 COVID-19 VACCINE (#1) [facility] Test 19:25:23 [code = COVID-19 VACCINE (#1)] Future Scheduled 2022-08-03 SHINGLES VACCINES (1 Met [facility] Test 19:25:23 of 2) [code = SHINGLES VACCINES (1 of 2)] Future Scheduled 2022-08-03 65+ PNEUMOCOCCAL [facility] Test 19:25:23 VACCINE (1 - PCV) [code = 65+ PNEUMOCOCCAL VACCINE (1 - PCV)] Future Scheduled 2022-08-03 INFLUENZA VACCINE Method [facility] Test 19:25:23 [code = INFLUENZA VACCINE] Future Scheduled 2021-09-21 COVID-19 VACCINE (1) [facility] Test 12:31:11 [code = COVID-19 VACCINE (1)] Future Scheduled 2021-09-21 SHINGLES VACCINES (#1) [facility] Test 12:31:11 [code = SHINGLES VACCINES (#1)] Future Scheduled 2021-09-21 65+ [facility]AL [facility] 12:31:11 VACCINE (1 of 1 - PPSV23) [code = 65+ PNEUMOCOCCAL VACCINE (1 of 1 - PPSV23)] Future Scheduled 2021-09-21 INFLUENZA VACCINE Method [facility] Test 12:31:11 [code = INFLUENZA VACCINE] Encounters Start End Encounter Admission Attending Care Care Encounter Source Date/Time Date/Time Type Type Clinicians Facility Department ID 2022-01-04 2022-01-04 Inpatient VIRAL Dominguez OUTD [id number] [facility] 05:18:00 05:18:00 Александр 40 [facility] 2021-11-02 2021-11-02 Inpatient VIRAL Dominguez INTE.02 [id number] [facility] 12:31:00 18:10:00 Александр 44 [facility] 2020-08-23 2020-08-23 Laboratory Only, [facility] [id number] 11:51:19 12:06:19 Only Test Chente 350.1.13.10 Sebastián 4.2.7.2.686 Vera [id number] 2020-08-23 2020-08-23 Outpatient R [facility] [id number] [facility] 12:00:00 12:00:00 [facility] 2020-08-23 2020-08-23 Orders Doctor TAMMY [id number] 00:00:00 00:00:00 Only Unassigned, JENA 350.1.13.10 [place] [facility] 4.2.7.2.686 [id number] Results Test Description Test Time Test Comments Results Result Comments Source Novel Coronavirus 2019 Inhouse 2022-01-03 01:14:00 Test Item Value Reference Range Interpretation Comme nts Novel Coronavirus 2018 Negative Negative Posit bola results are indicative of the Inhouse (test code = presenc e twFGBL-SlI-0 RNA, clinical COVNONPUI) correlation wit h patient [...] qualitative detection of nucleic acid s from hnkQJZN-XaC-2 virus and diagn osis of SARS-CoV-2 virusinfection. It is an Emergency Use Authorization ( EUA) testauthorized by the U.S. FDA. BASIC METABOLIC [id number] 13:59:00 Test Item Value Reference Range Interpretation [...] = 10.1 mg/dL 8.0-10.5 N CA) PROTHROMBIN [id number] 13:46:00 Test Item Value Reference Range Interpretation [...] (to prevent recurrent infar ct). 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 It is an Emergency Use Authorization ( EUA) testauthorized by the U.S. FDA. BASIC METABOLIC [id number] 13:51:00 Test Item Value Reference Range Interpretation [...] code = 10.1 mg/dL 8.0-10.5 N CA) [id number] 13:51:00 Test Item Value Reference Range Interpretation Comments PREALBUMIN (test code = PREALB) 25.8 mg/dL 16.0-40.0 N PROTHROMBIN [id number] 13:44:00 Test Item Value Reference Range Interpretation [...] (to prevent recurrent infar ct). CBC W/AUTO [id number] 13:35:00 Test Item Value Reference Range Interpretation [...] Notes Date/Time Note Provider Source 2022-01-18 13:24:00-00:00 [id number] [address] PATIENT NAME: BISMARK CLAYTON ADMIT DATE : 01/04/22 ACCOUNT NO: [id number] ROOM NO: AGE: 86 REPORT TYPE: eTRANSESOPHAGEAL ECHO REPORT SEX: F ADMITTING PHYSICIAN: ATTENDING PHYSICIAN:Александр Briggs MD *[address] [address] Transesophageal Echocardiogram Patient: Bismark Clayton Study Date: 01/04/2022 BP: 131 / 62 Location: [facility] URN: [id number] : 1935 Age: 86 Height: 63 in / 160 cm Gender: F Weight: 169 .6 lb / 77.1 kg BMI/BSA: 30.1 kg/m 2 / 1.8 m 2 *Ordering Physician: * Александр Briggs *Interpreting Physician: * Brigitte Fountain MD *Territory Service Representative: * Nelia Romero Indications: POST WATCHMAN. Study [...] benzocaine spray. A transesophageal probe (SN: [id number]) was inserted by the attending social services analyst without difficulty. L ocation: Procedure room. Patient status: Outpatient. Patient room n umb: [facility] 11. Study status: Routine. Study completion: The [...] 1324 PATIENT NAME: BISMARK CLAYTON 2021-11-02 15:31:00-00:00 [id number] [place] [address] PATIENT NAME: BISMARK CLAYTON ADMIT DATE: 11/02/21 ACCOUNT NO: [id number] ROOM NO: CHELSEA AGE: 86 REPORT TYPE: eECHOCARDIOGRAM REPORT SEX: F ADMITTING PHYSICIAN:Александр Briggs MD ATTENDING PHYSICIAN:Александр Briggs MD *[place] [address] Transthoracic Echocardiogram Patient: Bismark Clayton Study Date: 11/02/2021 BP: Location: [facility] URN: [id number] : 1935 Age: 86 Height: 63 in / 160 cm Gender: F Weight: 163 lb / 74.1 kg BMI/BSA: 28.9 kg/m 2 / 1.84 m 2 *Ordering Physician: * Teodoro Reyes *Interpreting Physician: * Malgorzata Salazar MD *Territory Service Representative: Jessie Dotson RDCS Indications: R/O PERICARDIAL EFFUSION. Study data: Transthoracic echocardiogram. Comple te 2D, complete spectral Doppler, and color Doppler. Location: [facility]. Patient status: Inpatient. Patient room number: [...] PATIENT NAME: BISMARK CLAYTON 2021-11-02 14:09:00-00:00 [facility] ([facility]) Discharge Summary REPORT#:[id number] REPORT STATUS: Signed DATE:11/02/21 TIME: 1409 PATIENT: BISMARK CLAYTON UNIT #: [id number] ROOM/BED: [place] [id number] : 34 AGE: 86 SEX: F ATTEND: Mera Briggs MD ADM AUTHOR: Teodoro Reyes * ALL edits or amendments must be made on the [employer]/computer document * PCP PCP Discharge to: home [...] stable. Right groin suture removed by this HEATING AND VENTILATION ENGINEER. No infect ion, bleeding, or hematoma. Dermabond applied and intact. Patient was provided with post-Watchman discharg e instructions. Patient is to follow up with PCP and social services analyst in 1 to 2 we eks post discharge. Patient is to follow up with social services analyst for th e 45-day KIA, and for [...] breath, lightheadedness, or dizzi ness to the social services analyst. Dispo: It is medically necessary that patients [...] distress GI: soft, non-tender Extremities: moves all Neuro/POLICE AIDE: alert, oriented X 3 Skin: dry Wound/incision: Location: Right groin suture removed by this HEATING AND VENTILATION ENGINEER. No infect ion, bleeding, or hematoma. Dermabond [...] Briggs MD on 11/22 at 0946 RPT #:[id number] END OF REPORT 2021-11-02 10:58:00-00:00 [id number] [place] [address] PATIENT NAME: BISMARK CLAYTON ADMIT DATE: 11/02/21 ACCOUNT NO: [id number] [facility] 86 REPORT TYPE: CARDIAC CATHETERIZATION REPORT SEX: F ADMITTING PHYSICIAN:Александр Briggs MD ATTENDING PHYSICIAN:Александр Briggs MD PROCEDURE DATE: 11/02/2021 PROCEDURE PERFORMED: Left atrial appendage closu re using 27-mm Watchman FLX closure device. INDICATIONS: Atrial fibrillation, high CHADS-VAS c score and inability to take anticoagulant. ACCESS: Right femoral vein, 16-Namibian closed wit h sncwkh-kj-rfdrt suture. COMPLICATIONS: None. BLEEDING: Less than 50 mL. DESCRIPTION OF PROCEDURE: After risks, benefits, and alternatives were explained, the patient agreed to proceed and sig zackary informed consent. The patient was brought into [facility] catheterization laboratory, prepped and draped in usual sterile fashion. Then, [facility] using a micropuncture kit under ultrasound guidance and placed an 8-Namibian Lyndora sheath, then upgraded to 16- Namibian sheath, gave partial dose of heparin and took SL1 sheath into the SVC with Monroe needle insid e under fluoroscopy, KIA guidance, [...] sheath and the sheath was removed. A uauuzv-vn-njqqq suture was p laced with good hemostasis. A full dose heparin was given throughout the procedure to assure ACT lev el above 250. CONCLUSION: Successful left atrial appendage fabian sure using 27-mm Watchman FLX closure device. Dictated By: Александр Briggs MD WT: CATH:CHICHI/KARMENA/NTS PATIENT NAME: BISMARK CLAYTON Conf#: [id number]/DID#: [id number] Authenticated by Александр Briggs MD On 11/09/2021 12:30:13 PM Electronically Signed by Александр Briggs MD on at 1230 PATIENT NAME: BISMARK CLAYTON 2021-10-31 12:27:00-00:00 [id number] [place] [address] PATIENT NAME: BISMARK CLAYTON ADMIT DATE: ACCOUNT NO: [id number] ROOM NO: AGE: 86 REPORT TYPE: eELECTROCARDIOGRAM REPORT SEX: F ADMITTING PHYSICIAN: ATTENDING PHYSICIAN:Александр Briggs MD Order: [id number] Test Reason : PREOP Test Date/Time Stamp: [...] ECG No previous ECGs available Confirmed by PÉREZ CERON MD ([id number]) on 10/31/19 2:27:17 PM Referred By: Александр Briggs Confirmed by:PÉREZ RANDHAWA MD at 0520 PATIENT NAME: BISMARK CLAYTON
[2023-05-11 17:37] LABS: Absolute Lymphocytes (CBC) 1.9 K/uL (0.7-4.9); Hematocrit 34.6 % (36.0-45.0); Lymphocytes % 18.8 % (15.3-44.8); MCV 94.1 fL (80-100); MPV 7.6 fL (7.6-11.3); Platelets 250 thou/uL (152-406); RBC Red Blood Cell Count 3.68 M/uL (3.86-4.86)
[2023-05-11 17:38] LABS: Protime INR 0.97
[2023-05-11 17:56] LABS: Troponin High Sensitivity 17.3 pg/mL (<58.9)
--- NOTE | 2023-05-11 18:09 | RAD REPORT ---
EXAM DESCRIPTION: RAD - Chest Single View - 05/11/2023 5:59 pm CLINICAL HISTORY: fall Chest pain. COMPARISON: <Comparisons> FINDINGS: Portable technique limits examination quality. The lungs are emphysematous but grossly clear. The heart is normal in size. No displaced fractures.Mu lti lead pacer device. IMPRESSION: No acute intrathoracic process suspected.
--- NOTE | 2023-05-11 18:11 | RAD REPORT ---
EXAM DESCRIPTION: RAD - Humerus Left - 05/11/2023 5:59 pm CLINICAL HISTORY: fall;Pain COMPARISON: <Comparisons> FINDINGS: No acute fracture or dislocation. Mild arthritic changes.
[2023-05-11] MEDS ORDERED: ACETAMINOPHEN 325 MG TABLET ONE (18:50)
[2023-05-11] MEDS ORDERED: NA CHLORIDE 0.9% 500 ML ONE (18:51)
--- NOTE | 2023-05-11 18:55 | RAD REPORT ---
EXAM DESCRIPTION: CT - Head C Spine Cap Wo Con - 05/11/2023 6:24 pm CLINICAL HISTORY: Trauma, head and neck injury. Chest, abdomen and pelvis pain. fall COMPARISON: <Comparisons> TECHNIQUE: CT head without contrast. CT cervical spine without contrast with coronal and sagittal reformatted images. CT chest, abdomen and pelvis without contrast with coronal and sagittal reformatted images of the spi ne. All CT scans are performed using dose optimization technique as appropriate and may include automated exposure control or mA/KV adjustment according to patient size. FINDINGS: CT HEAD WITHOUT CONTRAST: No intracranial hemorrhage, hydrocephalus or extra-axial fluid collection. Moderate generalized brain atrophy is present with moderate periventricular and deep white matter chronic microvascular ischemi c changes. No areas of brain edema or midline shift. The paranasal sinuses and mastoids are clear. The calvarium is intact. Vertebrobasilar atherosclerosi s. CT CERVICAL SPINE WITHOUT CONTRAST: No fracture or subluxation. Mild mid and lower cervical degenerative changes. The prevertebral soft t issues are normal in thickness. CT CHEST, ABDOMEN, PELVIS WITHOUT CONTRAST: NOTE: Lack of contrast is a significant limitation in the assessment of trauma related findings. Spec ifically, solid organ, vascular and bowel evaluation is significantly limited. The lungs are clear.Trace right pleural fluid. No pneumothorax. Mild cardiomegaly. Pacer wires are pr esent. No evidence of intra-abdominal visceral injury, free fluid or free air is seen within the above detai led limitations. Lumbar hardware is present. No acute fracture is present. IMPRESSION: Negative for acute traumatic findings within the above detailed limitations.
[2023-05-11] MEDS ORDERED: POTASSIUM 25 MEQ EFFERV TAB ONE ×2 (19:33→19:38)
--- NOTE | 2023-05-11 19:37 | EDPHYS ---
Physician Documentation [facility] Name: Bismark Clayton Age: 87 yrs Sex: Female : 1935 Arrival Date: 05/11/2023 Time: 16:35 Bed 5 Private MD: Noel Davis ED Physician Rocky Ly HPI: 05/11 17:10 This 87 yrs old Female presents to ER via Ambulatory with complaints of Fall Injury. cp 17:10 Details of fall: The patient fell from an upright position, while standing, and struck cp a tile surface. Onset: The symptoms/episode began/occurred this morning. Associated injuries: The patient sustained injury to the head, laceration, of the occipital area, tenderness, coccyx pain. 17:10 Patient is 87 y/o female who presents to ED after unwitnessed fall that occurred about cp 0230 this morning. Patient reports she lost balance and fell backward onto tile floor and struck back of head against counter. Daughter here in ED and reports noticing blood today on counter. Patient reportedly lost consciousness. Denies chest pain, denies abdominal pain. Historical: - Allergies: 16:55 Mobic (ringing in ears, balance not good); nj1 16:55 Morphine; nj1 - PMHx: 16:55 Diverticulitis; Headaches; Hyperlipidemia; Migraines; neuropathy; Osteoporosis; Sleep nj1 Apnea; - PSHx: 16:55 pacemaker; nj1 - Immunization history:: Client reports receiving the 2nd dose of the Covid vaccine. - Social history:: Smoking status: Patient denies any tobacco usage or history of. ROS: 17:15 Constitutional: Negative for body aches, chills, fever, poor PO intake. cp 17:15 Eyes: Negative for injury, pain, redness, and discharge. cp 17:15 ENT: Negative for drainage from ear(s), ear pain, sore throat, difficulty swallowing, difficulty handling secretions. 17:15 Neck: Positive for tenderness, Negative for stiffness. 17:15 Cardiovascular: Negative for chest pain, edema, palpitations. 17:15 Respiratory: Negative for cough, shortness of breath, wheezing. 17:15 Abdomen/GI: Negative for abdominal pain, vomiting, diarrhea, constipation, black/tarry stool, rectal bleeding. 17:15 Back: Negative for decreased range of motion. 17:15 MS/extremity: Negative for decreased range of motion, deformity. 17:15 Neuro: Positive for loss of consciousness, Negative for altered mental status, dizziness, weakness. 17:15 All other systems are negative. Exam: 17:20 Constitutional: The patient appears in no acute distress, alert, awake, cp non-diaphoretic, non-toxic, well developed, well nourished, uncomfortable. 17:20 Head/face: Noted is a laceration(s), that is superficial, of the occipital area, cp swelling, that is mild, tenderness, that is mild. 17:20 Eyes: Periorbital structures: appear normal, Pupils: equal, round, and reactive to light and accomodation, Extraocular movements: intact throughout, Sclera: no appreciated abnormality, Lids and lashes: appear normal, bilaterally. 17:20 ENT: External ear(s): are unremarkable, Ear canal(s): are normal, clear, TM's: dullness, bilaterally, Nose: is normal, Mouth: Lips: moist, Oral mucosa: pink and intact, moist, Posterior pharynx: is normal, airway is patent, no erythema, no exudate. 17:20 Neck: C-spine: C-collar placed in ED, vertebral tenderness, that is mild, appreciated at C2 and C3, crepitus, is not appreciated. 17:20 Chest/axilla: Inspection: normal, Palpation: crepitus, is not appreciated, tenderness, that is mild, of the left lateral posterior chest and left lateral anterior chest. 17:20 Cardiovascular: Rate: normal, Rhythm: regular, Edema: is not appreciated, JVD: is not appreciated. 17:20 Respiratory: the patient does not display signs of respiratory distress, Respirations: normal, no use of accessory muscles, no retractions, labored breathing, is not present, Breath sounds: are clear throughout, no decreased breath sounds, no stridor, no wheezing. 17:20 Abdomen/GI: Inspection: abdomen appears normal, Palpation: abdomen is soft and non-tender, in all quadrants. 17:20 Back: vertebral tenderness, is not appreciated. 17:20 Musculoskeletal/extremity: Extremities: grossly normal except: noted in the left upper arm: pain, tenderness, There is no evidence of decreased ROM, deformity, ROM: full passive range of motion, in the left shoulder and left elbow, Pulses: noted to be 2+ in the left radial artery. 17:20 Neuro: Orientation: to person, place \T\ time. Mentation: is normal, Motor: moves all fours, strength is normal, Sensation: is normal. 18:20 ECG was reviewed by the Attending Physician. cp Vital Signs: 16:44 BP 100 / 63; Pulse 62; Resp 16; Temp 98.6(O); Pulse Ox 97% on R/A; Weight 63.96 kg; nj1 Height 5 ft. 3 in. ; 17:30 BP 94 / 53; Pulse 63; Resp 16 S; Pulse Ox 97% on R/A; aa5 18:40 BP 124 / 78; Pulse 62; Resp 17 S; Temp 98(TE); Pulse Ox 96% on R/A; aa5 16:44 Body Mass Index 24.98 (63.96 kg, 160.02 cm) nj1 Peterson Coma Score: 16:45 Eye Response: spontaneous(4). Motor Response: obeys commands(6). Verbal Response: aa5 oriented(5). Total: 15. Trauma Score (Adult): 16:45 Eye Response: spontaneous(1); Verbal Response: oriented(1); Motor Response: obeys aa5 commands(2); Systolic BP: > 89 mm Hg(4); Respiratory Rate: 10 to 29 per min(4); [place] Score: 15; Trauma Score: 12 17:30 Eye Response: spontaneous(1); Verbal Response: oriented(1); Motor Response: obeys aa5 commands(2); Systolic BP: > 89 mm Hg(4); Respiratory Rate: 10 to 29 per min(4); [place] Score: 15; Trauma Score: 12 18:40 Eye Response: spontaneous(1); Verbal Response: oriented(1); Motor Response: obeys aa5 commands(2); Systolic BP: > 89 mm Hg(4); Respiratory Rate: 10 to 29 per min(4); [place] Score: 15; Trauma Score: 12 MDM: 17:04 Patient medically screened. 19:35 Data reviewed: vital signs, nurses notes, lab test result(s), EKG, radiologic studies, cp CT scan, plain films. 19:35 Consideration of Admission/Observation Escalation of care including cp admission/observation considered. Independent interpretation of the following test(s) in the Emergency Department EKG: See my EKG interpretation above X-Ray: My interpretation is images of left humerus negative for fracture. Counseling: I had a detailed discussion with the patient and/or guardian regarding: the historical points, exam findings, and any diagnostic results supporting the discharge/admit diagnosis, lab results, radiology results. Response to treatment: the patient's symptoms have markedly improved after treatment. ED course: VSS. Labs reviewed, radiology studies negative for significant trauma. Discussed continued observation and admission but patient requesting discharge to home. 05/11 17:07 Order name: Basic Metabolic Panel; Complete Time: 17:59 cp 08/11 17:59 Interpretation: Normal except: NA 135; K 3.0; BUN 21; CRE 1.56; GFR 32. 08/ 17:07 Order name: CBC with Diff; Complete Time: 17:59 cp 08/ 17:07 Order name: Troponin HS; Complete Time: 17:59 cp 08/ 17:07 Order name: PT-INR; Complete Time: 17:59 cp 08/ 17:07 Order name: XRAY Chest (1 view); Complete Time: 18:56 cp 08/11 18:56 Interpretation: Report review. / 17:07 Order name: XRAY Humerus LEFT; Complete Time: 18:56 08/11 18:56 Interpretation: Report reviewed. / 18:00 Order name: CT Traumagram (Head C Spine CAP wo con); Complete Time: 18:56 / 17:07 Order name: EKG; Complete Time: 17:07 cp / 17:07 Order name: Cardiac monitoring; Complete Time: 17:14 cp /11 17:07 Order name: EKG - Nurse/Tech; Complete Time: 18:16 cp 08/ 17:07 Order name: IV Saline Lock; Complete Time: 18:16 cp 08/11 17:07 Order name: Labs collected and sent; Complete Time: 17:23 cp 08/11 17:07 Order name: O2 Per Protocol; Complete Time: 17:14 cp 08/11 17:07 Order name: O2 Sat Monitoring; Complete Time: 17:14 cp EC:20 Rate is 60 beats/min. Rhythm is regular. PA interval is normal. QRS interval is normal. cp QT interval is normal. Interpreted by me. Reviewed by me. Administered Medications: 17:32 CANCELLED (Physician Discretion): NS 0.9% IV 500 ml IV at calculated rate continuous; cp give 250 mL bolus, then 75 mL/hr 18:40 Drug: NS 0.9% IV 500 ml Route: IV; Rate: bolus; Site: right upper arm; aa5 18:40 Drug: Acetaminophen PO 650 mg Route: PO; aa5 19:31 Drug: Potassium PO Effervescent Tablet 50 mEq Route: PO; jb4 Disposition Summary: 05/11/23 19:36 Discharge Ordered Location: Home cp Problem: new cp Symptoms: have improved cp Condition: Stable cp Diagnosis - Fall on same level, unspecified cp - Laceration without foreign body of scalp cp - Low back pain cp - Pain in left shoulder cp - Hypokalemia cp Followup: cp - With: Private Physician - When: 2 - 3 days - Reason: Recheck today's complaints Discharge Instructions: - Discharge Summary Sheet cp - Acute Back Pain, Adult cp - Head Injury, Adult cp - Shoulder Pain cp - Shoulder Range of Motion Exercises cp - Hypokalemia cp Forms: - Medication Reconciliation Form cp - Thank You Letter cp - Antibiotic Education cp - Prescription Opioid Use cp - Patient Portal Instructions cp - Leadership Thank You Letter cp Signatures: Dispatcher [employer] [facility] Matilda Joyner, RN RN aa5 Omar Galicia PA PA cp Forrest Berkowitz, RN RN jb4 Sofia Lau RN RN nj1 Corrections: (The following items were deleted from the chart) 17:32 17:31 NS 0.9% IV 500 ml IV at calculated rate continuous; give 250 mL bolus, then 75 cp mL/hr ordered. cp 18:24 17:11 Head C Spine CAP W Con+CT.RAD.BRZ ordered. EDID EDMS 05/12 01:45 05/11 17:15 This 87 yrs old Female presents to ER via Ambulatory with complaints of cp Fall Injury. cp
--- NOTE | 2023-05-11 19:37 | ER ---
Nurse's Notes [facility] Name: Bismark Clayton Age: 87 yrs Sex: Female : 1935 Arrival Date: 05/11/2023 Time: 16:35 Bed 5 Private MD: Noel Davis Diagnosis: Fall on same level, unspecified;Laceration without foreign body of scalp;Low back pain;Pain in left shoulder;Hypokalemia Presentation: 05/11 16:44 Chief complaint: Patient's son or daughter states: Fall this morning in the bathroom, nj1 they believe she may have had LOC since she does not remember what happened, but patient awake by the time they got to her. Not on blood thinners. Laceration to back of the head. Sent from urgent care for evaluation and treatment. 16:44 Acuity: GAURAV 3 nj 16:44 Method Of Arrival: Ambulatory [facility] 16:45 Care prior to arrival: None. Mechanism of Injury: Fall from standing position. Trauma aa5 event details: Injury occurred in the [facility], Injury occurred: at home. Injury occurred: May 11, 2023. 16:52 Coronavirus screen: Vaccine status: Patient reports receiving the 2nd dose of the covid nj1 vaccine. Ebola Screen: Patient denies travel to an Ebola-affected area in the 21 days before illness onset. Initial Sepsis Screen: Does the patient meet any 2 criteria? No. Patient's initial sepsis screen is negative. Does the patient have a suspected source of infection? No. Patient's initial sepsis screen is negative. Risk Assessment: Do you want to hurt yourself or someone else? Patient reports no desire to harm self or others. Onset of symptoms was May 11, 2023. Trauma Activation: Not Applicable Physician: ED Physician; Name: ; Notified At: ; Arrived At: Physician: General Surgeon; Name: ; Notified At: ; Arrived At: Physician: Radiology; Name: ; Notified At: ; Arrived At: Physician: Respiratory; Name: ; Notified At: ; Arrived At: Physician: Lab; Name: ; Notified At: ; Arrived At: Historical: - Allergies: 16:55 Mobic (ringing in ears, balance not good); nj1 16:55 Morphine; nj1 - PMHx: 16:55 Diverticulitis; Headaches; Hyperlipidemia; Migraines; neuropathy; Osteoporosis; Sleep nj1 Apnea; - PSHx: 16:55 pacemaker; nj1 - Immunization history:: Client reports receiving the 2nd dose of the Covid vaccine. - Social history:: Smoking status: Patient denies any tobacco usage or history of. Screenin:[address] [facility] ED Fall Risk Assessment (Adult) History of falling in the last 3 months, aa5 including since admission Yes- fall prone (multiple falls) (3 pts) Confusion or Disorientation No (0 pts) Intoxicated or Sedated No (0 pts) Impaired Gait Yes (1 pt) Mobility Assist Device Used Yes (1 pt) Altered Elimination No (0 pt) Score/Fall Risk Level 3 or more points = High Risk Oriented to surroundings, Maintained a safe environment, Educated pt \\T\\ family on fall prevention, incl call for assistance when getting out of bed. Abuse screen: Denies threats or abuse. Nutritional screening: No deficits noted. Tuberculosis screening: No symptoms or risk factors identified. Primary Survey: 16:45 NO uncontrolled hemorrhage observed. A: The client is awake and alert. The airway is aa5 patent. Breathing/Chest: Spontaneous respiratory effort, equal unlabored respirations, breath sounds clear bilaterally, regular pattern, symmetrical chest rise and fall. Circulation: No external hemorrhage present. Regular and strong central pulse, skin warm/dry/normal color. Disability Client is alert. Exposure/Environment: There is no evidence of uncontrolled external bleeding. 17:00 Reassessment Alertness and Airway: Awake and alert. The airway is patent. Breathing: aa5 Spontaneous respiratory effort, equal unlabored respirations, breath sounds clear bilaterally, regular pattern with symmetrical chest rise and fall. Circulation: No external hemorrhage noted. Regular and strong central pulse, skin warm/dry/normal color. Disability: Alert. Secondary Survey: 16:45 HEENT: Head Other laceration noted to back of head, no active bleeding noted. aa5 16:45 Gastrointestinal: No deficits noted. : No deficits noted. Musculoskeletal: Reports aa5 pain in left arm. Assessment: 16:45 General: Appears uncomfortable, Behavior is calm, cooperative. Pain: Complains of pain aa5 in left arm Pain currently is 5 out of 10 on a pain scale. Quality of pain is described as aching, Pain began post fall. Pt also reports pain to left lateral aspect of chest, pt states "I had shingles and the rash is gone but the pain is still there". Is continuous. Neuro: Level of Consciousness is awake, alert, obeys commands, Oriented to person, place, time, situation, [employer] are equal bilaterally Moves all extremities. Speech is normal, Facial symmetry appears normal, Pupils are PERRLA, Denies blurred vision dizziness, headache. EENT: No signs and/or symptoms were reported regarding the EENT system. Cardiovascular: Heart tones S1 S2 present Rhythm is regular. Respiratory: Airway is patent Respiratory effort is even, unlabored, Respiratory pattern is regular, symmetrical, Breath sounds are clear bilaterally. GI: Abdomen is round non-distended, Bowel sounds present X 4 quads. Abd is soft and non tender X 4 quads. Patient currently denies nausea, vomiting. : No signs and/or symptoms were reported regarding the genitourinary system. Derm: Skin is pink, warm \\T\\ dry. Musculoskeletal: Reports pain in left arm. 17:00 Reassessment: C-collar applied by PA. aa5 17:20 Reassessment: Patient is alert, oriented x 3, equal unlabored respirations, skin aa5 warm/dry/pink. 18:20 Reassessment: Pt to CT via stretcher. aa5 18:40 Reassessment: Patient is alert, oriented x 3, equal unlabored respirations, skin aa5 warm/dry/pink. 18:55 Reassessment: C-collar removed by PA. aa5 19:00 Reassessment: Patient appears in no apparent distress at this time. Patient and/or jb4 family updated on plan of care and expected duration. Pain level reassessed. Patient is alert, oriented x 3, equal unlabored respirations, skin warm/dry/pink. 19:59 Reassessment: Patient appears in no apparent distress at this time. Patient and/or jb4 family updated on plan of care and expected duration. Pain level reassessed. Patient is alert, oriented x 3, equal unlabored respirations, skin warm/dry/pink. Vital Signs: 16:44 BP 100 / 63; Pulse 62; Resp 16; Temp 98.6(O); Pulse Ox 97% on R/A; Weight 63.96 kg; nj1 Height 5 ft. 3 in. ; 17:30 BP 94 / 53; Pulse 63; Resp 16 S; Pulse Ox 97% on R/A; aa5 18:40 BP 124 / 78; Pulse 62; Resp 17 S; Temp 98(TE); Pulse Ox 96% on R/A; aa5 16:44 Body Mass Index 24.98 (63.96 kg, 160.02 cm) nj1 [place] Coma Score: 16:45 Eye Response: spontaneous(4). Motor Response: obeys commands(6). Verbal Response: aa5 oriented(5). Total: 15. Trauma Score (Adult): 16:45 Eye Response: spontaneous(1); Verbal Response: oriented(1); Motor Response: obeys aa5 commands(2); Systolic BP: > 89 mm Hg(4); Respiratory Rate: 10 to 29 per min(4); [place] Score: 15; Trauma Score: 12 17:30 Eye Response: spontaneous(1); Verbal Response: oriented(1); Motor Response: obeys aa5 commands(2); Systolic BP: > 89 mm Hg(4); Respiratory Rate: 10 to 29 per min(4); [place] Score: 15; Trauma Score: 12 18:40 Eye Response: spontaneous(1); Verbal Response: oriented(1); Motor Response: obeys aa5 commands(2); Systolic BP: > 89 mm Hg(4); Respiratory Rate: 10 to 29 per min(4); [place] Score: 15; Trauma Score: 12 ED Course: 16:36 Patient arrived in ED. rg4 16:36 Noel Davis MD is Private Physician. rg4 16:36 [facility] cp 16:36 Rocky Ly MD is Attending Physician. cp 16:45 Matilda Joyner, GINO is Primary Nurse. aa5 16:45 Arm band placed on right wrist. aa5 16:45 Patient has correct armband on for positive identification. Placed in gown. Bed in low aa5 position. Call light in reach. Side rails up X2. Adult w/ patient. Client placed on continuous cardiac and pulse oximetry monitoring. NIBP monitoring applied. 16:45 Patient maintains SpO2 saturation greater than 95% on room air. aa5 16:46 Thermoregulation: Pt refused warm blanket. aa5 16:54 Triage completed. nj1 17:15 Radiology exam delayed due to lab results not completed at this time. (BUN/Creatinine). nj 17:15 Initial lab(s) drawn, by ED staff, sent to lab. eb 17:15 Missed attempt(s): 22 gauge in left antecubital area. Bleeding controlled, band aid aa5 applied, catheter tip intact. 17:20 Missed attempt(s): 22 gauge in right antecubital area. Bleeding controlled, band aid aa5 applied, catheter tip intact. 17:35 Missed attempt(s): 22 gauge in right wrist. Bleeding controlled, band aid applied, hb catheter tip intact. 17:40 Radiology exam delayed due to lab results not completed at this time. (BUN/Creatinine). nj 17:42 Missed attempt(s): 22 gauge in left forearm. Bleeding controlled, band aid applied, hb catheter tip intact. 18:00 XRAY Chest (1 view) In Process Unspecified. EDMS 18:01 XRAY Humerus LEFT In Process Unspecified. EDMS 18:26 CT Traumagram (Head C Spine CAP wo con) In Process Unspecified. EDMS 19:00 Report given to GINO Flores and GINO Martines. aa5 19:56 No provider procedures requiring assistance completed. jw7 19:59 IV discontinued, intact, bleeding controlled, No redness/swelling at site. Pressure jb4 dressing applied. Administered Medications: 17:32 CANCELLED (Physician Discretion): NS 0.9% IV 500 ml IV at calculated rate continuous; cp give 250 mL bolus, then 75 mL/hr 18:40 Drug: NS 0.9% IV 500 ml Route: IV; Rate: bolus; Site: right upper arm; aa5 18:40 Drug: Acetaminophen PO 650 mg Route: PO; aa5 19:31 Drug: Potassium PO Effervescent Tablet 50 mEq Route: PO; jb4 Medication: 19:59 VIS not applicable for this client. jb4 Outcome: 19:36 Discharge ordered by MD. cp 19:56 Discharged to home via wheelchair, with family. jw7 19:56 Condition: stable 19:56 Discharge instructions given to patient, family, Instructed on discharge instructions, follow up and referral plans. Demonstrated understanding of instructions, follow-up care. 19:59 Patient left the ED. jb4 Signatures: Dispatcher [employer] EDMatilda Soria RN RN aa5 Omar Galicia PA PA cp Baxter, Heather, RN RN Mirella Jacobson rg4 Forrest Berkowitz RN RN jb4 Pierre Carballo Elizabeth eb Waits, Jodi RN RN jw7 Sofia Lau, GINO RN md1 Corrections: (The following items were deleted from the chart) 16 16:52 Chief complaint: Patient's son or daughter states: Fall this morning in the [facility] bathroom, they believe she may have had LOC since she does not remember what happened, but patient awake by the time they got to her. Not on blood thinners. Laceration to back of the head. Sent from urgent care for evaluation and treatment. [facility] 16:52 Method Of Arrival: Ambulatory [place] [id number] 16:55 16:52 BP 100 / 63; Pulse 62bpm; Resp 16bpm; Pulse Ox 97% RA; Temp 98.6F Oral; 63.96 kg; [facility] Height 5 ft. 3 in.; BMI: 24.9; [facility] 16 16:52 Acuity: GAURAV 3 [place] [id number] 17:40 17:39 Radiology exam delayed due to IV insertion attempt and/or patient not having nj appropriate IV at this time. md 17:40 17:40 Radiology exam delayed due to lab results not completed at this time. nj (BUN/Creatinine) md 18:18 16:45 Trauma Activation: Alert aa5 aa5 18:21 16:56 Arm band placed on right wrist. [facility] aa5
[2023-05-11 20:08] VITALS: BP 124/78; TEMP 98; O2SAT 96
--- NOTE | 2023-05-13 15:31 | EKG ---
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
--- NOTE | 2023-05-14 13:14 | EKG ---
Test Date: 2023-05-11 Test Time: 18:15:30 [employer] Vendor: ASH MEASUREMENT RESULTS: Intervals: Rate: 60 [place]: QRSD: 84 QT: 490 QTc: 490 [place]: P: LA: QRS: 74 T: 71 INTERPRETIVE STATEMENTS: Normal sinus rhythm Prolonged QT Abnormal ECG Compared to ECG 05/11/2023 18:14:38 Electronically Signed On 05-14-23 13:11:24 CDT by Александр Briggs
== END 2023-05-11 19:59 | disposition home or self-care (01) ==
LOC: ER 16:35
DX: S01.01XA Laceration without foreign body of scalp, initial encounter (principal); M54.50 Low back pain, unspecified; M25.512 Pain in left shoulder; E87.6 Hypokalemia; W18.30XA Fall on same level, unspecified, initial encounter; Z95.0 Presence of cardiac pacemaker; Z88.5 Allergy status to narcotic agent
CPT/HCPCS: 93005; 85025; 80048; 36415; 85610; 84484; 70450; 71250; 72125; 71045; 73060; 99285; J7040

== ENCOUNTER 2024-07-09 09:15 | Inpatient (IN) | payer OTHER ==
[2024-07-09] MEDS ORDERED: methocarbamoL 500 MG TAB ONE (09:27)
[2024-07-09] MEDS ORDERED: ACETAMINOPHEN 500 MG TAB ONE (09:27)
[2024-07-09] MEDS ORDERED: LIDOCAINE 4% PATCH ONE (09:28)
--- NOTE | 2024-07-09 10:55 | RAD REPORT ---
EXAMINATION: LUMBAR SPINE MULTIPLE VIEWS CLINICAL INDICATION: Female, 88 years old. low back pain TECHNIQUE: Multiple views of the lumbar spine were obtained. COMPARISON: 06/20/2021 FINDINGS: For purposes of this dictation, it is assumed that there are 5 lumbar type vertebral bodies. ALIGNMENT: There is normal alignment of the lumbar spine. BONES: Hardware is present spanning L4-S1. There is no evidence of hardware loosening or infection. DISCS: Prominent disc thinning with small endplate osteophytes at L3-4. , Aortic atherosclerosis. IMPRESSION: Moderate lower lumbar degenerative changes with hardware in place. No acute finding is visualized.
--- NOTE | 2024-07-09 10:59 | RAD REPORT ---
EXAMINATION: XR PELVIS CLINICAL INDICATION: back pain TECHNIQUE: AP Pelvis examination was obtained. COMPARISON: No prior exam. 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 No fracture, dislocation or AVN pattern i s observed. Symmetric sacroiliac joints seen. Lower lumbar hardware with large stimulator device present. The portion of the left iliac wing is obscured. Mild atherosclerosis. Mild diffuse osteopenia. IMPRESSION: No acute abnormalities detected.
--- NOTE | 2024-07-09 11:03 | EDPHYS ---
Physician Documentation [facility] Name: Bismark Clayton Age: 88 yrs Sex: Female : 1935 Arrival Date: 07/09/2024 Time: 09:15 Bed 8 Private MD: ED Physician Karson Cruz HPI: 07/09 09:24 This 88 yrs old Female presents to ER via EMS with complaints of low back ec2 pain. 09:24 Patient arrives today for evaluation of low back pain. Reports she been having low back ec2 pain ongoing for the past several weeks after recent fall. Patient reports no new exacerbating injuries. Reports has taken Tylenol with minimal alleviation in symptoms. Denies red flag symptoms.. Historical: - Allergies: 09:18 Mobic (ringing in ears, balance not good); ll1 09:18 Morphine; ll1 - PMHx: 09:18 Diverticulitis; Headaches; Hyperlipidemia; Migraines; neuropathy; Osteoporosis; Sleep ll1 Apnea; - PSHx: 09:18 pacemaker; ll1 - Immunization history:: Adult Immunizations up to date. - Infectious Disease History:: Denies. - Social history:: Smoking status: Patient denies any tobacco usage or history of. ROS: 09:24 Constitutional: as per hpi ec2 Exam: 09:24 Constitutional: GEN: NAD Head: atraumatic Eyes: EOMI Ears: External ears are ec2 normal. CV: regular rate LUNGS: no respiratory distress ABD: non-distended SKIN: no evidence of rashes MSK: no evidence of trauma, no C/T/L-spine TTP or deformities or crepitus appreciated. Right paraspinal TTP noted. Vital Signs: 09:15 BP 99 / 75; Pulse 70; Resp 17; Temp 97.8; Pulse Ox 98% on R/A; Weight 63.5 kg; Height 5 ll1 ft. 3 in. ; Pain 5/10; 11:43 BP 101 / 65; Pulse 80; Resp 16; Pulse Ox 95% on R/A; ll1 12:45 BP 108 / 72; Pulse 81; Resp 18; Temp 98.4; Pulse Ox 96% ; me1 09:15 Body Mass Index 24.80 (63.50 kg, 160.02 cm) ll1 09:15 Pain Scale: Adult ll1 MDM: 09:24 Data reviewed: vital signs. ED course: Patient arrives today for evaluation of low back ec2 pain. Examination remarkable for MSK findings as above. Will obtain radiograph of the L-spine. Suspect strain versus sciatica, doubt fracture. Additionally low suspicion for spinal cord pathology given lack of red flag symptoms, accordingly will forego imaging such as MRI. Will give the patient medications for pain.. 09:26 Patient medically screened. ec2 11:21 ED course: Imaging is unremarkable. Family expressed concern regarding return to home ec2 and patient's ambulation status. I believe she would benefit from further physical therapy and rehabilitation. 11:55 ED course: EKG independently reviewed and interpreted by me, shows occasionally paced ec2 rhythm, sinus, rate of 81, no acute ST segment elevations, nonactionable intervals.. 12:20 ED course: Patient does have a decrease in renal function, today creatinine at 2.42, ec2 most recently 1.5. Will admit for fluid resuscitation, kidney dysfunction. Discussed case with hospitalist, patient also benefit from PT and OT.. 07/09 11:20 Order name: CBC with Diff; Complete Time: 12:18 ec2 07/09 11:20 Order name: CMP; Complete Time: 12:18 ec2 07/09 12:18 Order name: UAM ec2 07/09 09:24 Order name: Lumbar Spine (3 Views) XRAY; Complete Time: 11:00 ec2 07/09 09:40 Order name: Pelvis XRAY; Complete Time: 11:00 ec2 07/09 13:00 Order name: CT Abd/Pelvis - Without Contrast: SUDHA, Radicular back pain, cant have MRI, la1 Pain pump, back hardware; Complete Time: 14:03 07/09 11:22 Order name: Physical Therapy Consult; Complete Time: 13:13 EDMS 07/09 11:20 Order name: EKG - Nurse/Tech; Complete Time: 11:54 ec2 Administered Medications: 09:35 Drug: Acetaminophen PO 1000 mg PO once Route: PO; ll1 11:58 Follow up: Response: No adverse reaction ll1 09:35 Drug: Methocarbamol PO 500 mg PO once Route: PO; ll1 11:58 Follow up: Response: No adverse reaction; Pain is decreased; RASS: Alert and Calm (0) ll1 09:40 Drug: Lidoderm Topical Patch 5 % (700 mg/patch) 1 patches Topical once; leave on for 12 ll1 hours; cover most painful area; may cut into smaller pieces {Note: R hip.} Route: Topical; Site: affected area; 11:58 Follow up: Response: No adverse reaction ll1 12:56 Drug: NS 0.9% IV 1000 ml IV at 1 bolus Per protocol; 1000 mL bolus Route: IV; Rate: 1 me1 bolus; Site: right wrist; 17:07 Follow up: IV Status: Infusion continued upon admission me1 Disposition Summary: 07/09/24 12:21 Hospitalization Ordered Notes: Hospitalization Status: Inpatient Admission ec2 Provider: Omar Marrero ec2 Location: Telemetry/MedSurg (Inpatient)(07/09/24 12:21) ec2 Condition: Stable(07/09/24 12:21) ec2 Problem: new ec2 Symptoms: are unchanged ec2 Bed/Room Type: Standard ec2 Room Assignment: 229(07/09/24 13:08) bd Diagnosis - Acute kidney failure, unspecified ec2 Forms: - Medication Reconciliation Form ec2 - SBAR form ec2 - Leadership Thank You Letter ec2 Signatures: Dispatcher [employer] EDMS Adrienne Franklin bd Dinesh Aguilera, FWS FACULTY ASSISTANT-C FWS FACULTY ASSISTANT-Cla1 Basilia Ferris RN RN ll1 Jovita Chun RN RN ko1 Cecy Avendano RN RN me1 Karson Cruz MD MD ec2 Corrections: (The following items were deleted from the chart) 09:46 09:18 Allergies: Hydrocodone-Acetaminophen; ll1 ll1 11: 11:02 Home ec2 ec2 11: 11:02 Stable ec2 ec2 11: 11:02 Low back pain ec2 ec2 13:08 12:21 ec2 bd
--- NOTE | 2024-07-09 11:03 | ER ---
Nurse's Notes [facility] Name: Bismark Clayton Age: 88 yrs Sex: Female : 1935 Arrival Date: 07/09/2024 Time: 09:15 Bed 8 Private MD: Diagnosis: Acute kidney failure, unspecified Presentation: 07/09 09:15 Chief complaint: Patient states: Continued back pain since her fall 06/27. Supposed to 1 have imaging today, but couldn't get there because she hurts so bad. Chief complaint: EMS states: 22 R thumb, Toradol 15 mg IV. Coronavirus screen: Client denies travel out of the [place] in the last 14 days. At this time, the client does not indicate any symptoms associated with coronavirus-19. Ebola Screen: Patient denies travel to an Ebola-affected area in the 21 days before illness onset. Initial Sepsis Screen: Does the patient meet any 2 criteria? No. Patient's initial sepsis screen is negative. Does the patient have a suspected source of infection? No. Patient's initial sepsis screen is negative. Risk Assessment: Do you want to hurt yourself or someone else? Patient reports no desire to harm self or others. Onset of symptoms was June 27, 2024. 09:15 Method Of Arrival: EMS: [facility] 09:15 Acuity: GAURAV 3 ll1 Triage Assessment: 09:18 General: Appears uncomfortable, Behavior is calm, cooperative, appropriate for age. ll1 Pain: Complains of pain in back Pain currently is 5 out of 10 on a pain scale. Quality of pain is described as aching. Musculoskeletal: Circulation, motion, and sensation intact. Capillary refill < 3 seconds, in right in left in bilateral fingers. Reports pain in back. Injury Description: fall 06/27. Historical: - Allergies: 09:18 Mobic (ringing in ears, balance not good); ll1 09:18 Morphine; ll1 - PMHx: 09:18 Diverticulitis; Headaches; Hyperlipidemia; Migraines; neuropathy; Osteoporosis; Sleep ll1 Apnea; - PSHx: 09:18 pacemaker; ll1 - Immunization history:: Adult Immunizations up to date. - Infectious Disease History:: Denies. - Social history:: Smoking status: Patient denies any tobacco usage or history of. Screenin:42 [facility] ED Fall Risk Assessment (Adult) History of falling in the last 3 months, ll1 including since admission Yes- single mechanical fall (1 pt) Confusion or Disorientation No (0 pts) Intoxicated or Sedated No (0 pts) Impaired Gait Yes (1 pt) Mobility Assist Device Used Yes (1 pt) Altered Elimination Yes (1 pt) Score/Fall Risk Level 3 or more points = High Risk Maintained a safe environment, Hourly rounding (assess needs \T\ fall precautionary measures) done, Used ambulatory aids as needed (educated on \T\ assisted with), Utilized family, sitter, or virtual biochemistry professor as indicated. Abuse screen: Denies threats or abuse. Nutritional screening: No deficits noted. Tuberculosis screening: No symptoms or risk factors identified. Assessment: 09:35 Reassessment: No changes from previously documented assessment. Patient and/or family ll1 updated on plan of care and expected duration. Pain level reassessed. Patient is alert, oriented x 3, equal unlabored respirations, skin warm/dry/pink. 11:42 Reassessment: No changes from previously documented assessment. Patient and/or family ll1 updated on plan of care and expected duration. Pain level reassessed. Patient is alert, oriented x 3, equal unlabored respirations, skin warm/dry/pink. Vital Signs: 09:15 BP 99 / 75; Pulse 70; Resp 17; Temp 97.8; Pulse Ox 98% on R/A; Weight 63.5 kg; Height 5 ll1 ft. 3 in. ; Pain 5/10; 11:43 BP 101 / 65; Pulse 80; Resp 16; Pulse Ox 95% on R/A; ll1 12:45 BP 108 / 72; Pulse 81; Resp 18; Temp 98.4; Pulse Ox 96% ; me1 09:15 Body Mass Index 24.80 (63.50 kg, 160.02 cm) ll1 09:15 Pain Scale: Adult ll1 ED Course: 09:15 Patient arrived in ED. ll1 09:18 Triage completed. ll1 09:18 Arm band placed on Patient placed in an exam room, on a stretcher. ll1 09:19 Basilia Ferris RN is Primary Nurse. ll1 09:19 Karson Cruz MD is Attending Physician. ec2 09:19 Maintain EMS IV. Dressing intact. Site clean \T\ dry. Gauge \T\ site: 22 R thumb. ll 1 09:41 Patient has correct armband on for positive identification. Bed in low position. ll1 Provided Education on: ER procedures and process. Warm blanket given. Pillow given. slight urine leakage. Cleaned and new pad applied. Tolerated well. 10:48 Lumbar Spine (3 Views) XRAY In Process Unspecified. EDMS 10:48 Pelvis XRAY In Process Unspecified. EDMS 11:42 Initial lab(s) drawn, by me, sent to lab. ll1 11:50 1150 CM met with and her daughter Bridget at the bedside in the ED exam room. ane Patient identified by name and . Demographic sheet confirmed. Patient states she lives alone, in a single story home. She reports that prior to admission, she has not been able to ambulate well. She explains that she had a fall two weeks prior and has continued to experience weakness, pain, and inability to stand on her own. Her daughter Bridget is staying with her temporarily to assist her with ADLs. DME in the home includes, a rollator that the patient states she usually uses at all times, a wheelchair, motorized bed, shower seat, wheel polisher bars in the bathroom, and a bedside toilet. NO HH, home oxygen or other medical services at this time. Her PCP is Dr. Noel Davis and she states she does have an MPOA in place. Bridget expressed concern about 's weakness and requests information on options. CM provided information on HH, inpatient rehabilitation, penitentiary facilities and provided choice lists for several options. Bridget and agree if inpatient rehab is an option, they wish to stay local and chose Inpatient Rehabilitation on the 5th floor. They both agree that if HH is appropriate, they chose [facility], as they have received services through [facility] previously. They agree that if SNF is appropriate, they are undecided as they would need to do some research, and Bridget states she will explore options for [facility] and vermin exterminator nursing care. The patient's preferred plan is to return home with increased strength and independent function. Bridget expressed concern about transportation home if patient is unable to ambulate. CM team will continue to follow and coordinate care during this hospital stay. 12:20 Clifton Osorio MD is Hospitalizing Provider. ec2 12:20 Omar Marrero MD is Hospitalizing Provider. ec2 13:14 CT Abd/Pelvis - Without Contrast: SUDHA, Radicular back pain, cant have MRI, Pain pump, EDMS back hardware In Process Unspecified. 13:18 No provider procedures requiring assistance completed. Patient admitted, IV remains in ko1 place. Administered Medications: 09:35 Drug: Acetaminophen PO 1000 mg PO once Route: PO; ll1 11:58 Follow up: Response: No adverse reaction ll1 09:35 Drug: Methocarbamol PO 500 mg PO once Route: PO; ll1 11:58 Follow up: Response: No adverse reaction; Pain is decreased; RASS: Alert and Calm (0) ll1 09:40 Drug: Lidoderm Topical Patch 5 % (700 mg/patch) 1 patches Topical once; leave on for 12 ll1 hours; cover most painful area; may cut into smaller pieces {Note: R hip.} Route: Topical; Site: affected area; 11:58 Follow up: Response: No adverse reaction ll1 12:56 Drug: NS 0.9% IV 1000 ml IV at 1 bolus Per protocol; 1000 mL bolus Route: IV; Rate: 1 me1 bolus; Site: right wrist; 17:07 Follow up: IV Status: Infusion continued upon admission me1 Medication: 09:43 VIS not applicable for this client. ll1 Outcome: 11:02 Discharge ordered by . ec2 12:21 Decision to Hospitalize by Provider. ec2 13:18 Admitted to Tele accompanied by tech, via stretcher, room 229, with chart, ko1 13:18 Condition: stable 13:18 Instructed on the need for admit, 13:45 Patient left the ED. me1 Signatures: Dispatcher [employer] Basilia Link RN RN ll1 Jovita Chun RN RN ko1 Cecy Avendano RN RN me1 Karson Cruz MD MD ec2 Camila Herron RN RN ane Corrections: (The following items were deleted from the chart) 09:35 09:35 Acetaminophen PO 1000 mg PO ll1 ll1 09:46 09:18 Allergies: Hydrocodone-Acetaminophen; ll1 ll1
[2024-07-09 11:50] LABS: Absolute Eosinophils 0.1 K/uL (0-0.5); Absolute Monocytes 1.1 K/uL (0.1-1.3); Basophils % 0.4 % (0-1.3); Eosinophils % 0.6 % (0-4.4); Hematocrit 40.6 % (36.0-45.0); Hemoglobin 13.3 g/dL (12.0-15.0); Lymphocytes % 8.6 % (15.3-44.8); MCH 32.4 pg (27.0-35.0); MCHC 32.9 g/dL (32.0-36.0); MCV 98.6 fL (80-100); MPV 7.3 fL (7.6-11.3); Monocytes % 9.9 % (3.3-12.3); Neutrophils % 80.5 % (41.7-73.7); Platelets 379 thou/uL (152-406); RBC Red Blood Cell Count 4.11 M/uL (3.86-4.86); Red Cell Distribution Width 13.2 % (12.1-15.2)
[2024-07-09 12:16] LABS: Albumin/Globulin Ratio 0.7 (1.1-1.8); Anion Gap 11.9 mEq/L (5.0-15.0); Bilirubin Total 0.6 mg/dL (0.2-1.0); Globulin 4.1 g/dL (2.3-3.5); Potassium 4.9 mEq/L (3.5-5.1); Protein, Total 7.1 g/dL (6.4-8.2)
[2024-07-09] MEDS ORDERED: NA CHLORIDE 0.9% 1,000 ML ONE (12:40)
--- NOTE | 2024-07-09 13:59 | P.HP ---
Certification for Inpatient Patient admitted to: Inpatient With expected LOS: >2 Midnights Patient will require the following post-hospital care: None Practitioner: I am a practitioner with admitting privileges, knowledge of patient current condition, hospital course, and medical plan of care. Services: Services provided to patient in accordance with Admission requirements found in Title 42 Section 412.3 of the Code of Federal Regulations Patient History Date of Service: 07/09/24 Reason for admission: SUDHA, back pain, weakness History of Present Illness: 88-year-old female with history of chronic back pain with pain pump in place, atrial fibrillation status post Watchman procedure presents to the emergency department with chief complaint of back pain. She lives alone and reports that she had a fall on June 27 and has been having significant back pain and difficulty getting around since then. She usually uses a walker to get around but since the fall has been need to use wheelchair and has pain in her low back radiating down both legs but mostly her right leg. She is evaluated in the emergency department and found to have an acute kidney injury with a creatinine of 2.42, baseline creatinine is around 1.5. She had imaging of her lumbar spine and pelvis which showed arthritic findings but no other acute findings. ED doctor wishes to admit patient for SUDHA, back pain/weakness. Allergies morphine Allergy (Verified 07/09/24 13:54) Unknown hydrocodone Adverse Reaction (Mild, Verified 07/09/24 13:54) Flu Like Symptoms Home Medications: Sotalol HCl [Sotalol] 40 mg PO TID 03/18/22 Furosemide [Lasix] 40 mg PO BID 02/20/23 Gabapentin 100 mg PO BID 02/20/23 Temazepam 15 mg PO DAILY 02/20/23 Cyclobenzaprine HCl [Flexeril] 5 mg PO BID PRN #10 tab 02/23/23 Dicyclomine [Bentyl] 10 mg PO BID 15 Days #30 cap 02/23/23 Cyclobenzaprine HCl [Flexeril] 5 mg PO BID PRN #10 tab 02/26/23 - Past Medical/Surgical History Diabetic: No -: Diverticulitis -: Migraines -: watchmans procedure -: afib -: hld -: CHF -: Hysterectomy -: Bladder suspension -: Carpal TUnnel -: Back Surgery -: Cataract Surgery ross eyes -: Colonscopy w/ Dr. kurtz -: Left eye retinal disorder - Social History Alcohol use: No CD- Drugs: No Caffeine use: Yes Review of Systems 10-point ROS is otherwise unremarkable Musculoskeletal: Back Pain Physical Examination - Vital Signs Temperature: 97.8 F Blood Pressure: 101/65 Pulse: 80 Respirations: 16 - Physical Exam General: Alert, In no apparent distress, Oriented x3 HEENT: Atraumatic, PERRLA Neck: Supple, 2+ carotid pulse no bruit, No LAD Respiratory: Clear to auscultation bilaterally, Normal air movement Cardiovascular: Regular rate/rhythm, Normal S1 S2 Gastrointestinal: Normal bowel sounds, No tenderness Musculoskeletal: No tenderness Integumentary: No rashes Neurological: Normal speech, Normal strength at 5/5 x4 extr, Normal tone, Sensation intact - Studies Laboratory Data (last 24 hrs) 07/09/24 07/09/24 11:40 11:40 WBC 11.10 H Hgb 13.3 Hct 40.6 Plt Count 379 Sodium 132 L Potassium 4.9 BUN 87 H Creatinine 2.42 H Glucose 99 Total Bilirubin 0.6 AST 13 L ALT 15 Alkaline Phosphatase 128 H Assessment and Plan - Plan Assessment: Acute kidney injury Acute on chronic back pain, lower extremity weakness/deconditioning Recent fall [facility] EF Atrial fibrillation status post Watchman procedure Plan: Acute kidney injury CT pending to rule out obstruction Continue gentle IV fluids overnight Nephrology consult placed Denies NSAID usage, reports average p.o. intake Denies nausea/vomiting/diarrhea Acute on chronic back pain, lower extremity weakness/deconditioning Recent fall Worsening back pain radiating to right leg since fall on June 27 Used to get around with a walker well, lives at home but has been needing to use a wheelchair since then Was unable to even get to her wheelchair today given pain in her back, weakness Good strength distal lower extremities, primarily weak in the proximal lower extremities but limited by pain in her back Normal sensation in lower extremities, no saddle paresthesias PT consulted [facility] EF Appears euvolemic on exam Continue gentle IV fluids for SUDHA Atrial fibrillation status post Watchman procedure Continue home medications when verified DVT PPX: Heparin subcu Code status: Full Discharge Plan: Care Home Plan to discharge in: 72 Hours - Advance Directives Does patient have a Living Will: No Does patient have a Durable POA for Healthcare: No - Code Status/Comfort Care Code Status Assessed: Yes (DNR) Critical Care: No Time Spent Managing Pts Care (In Minutes): 63
--- NOTE | 2024-07-09 14:02 | RAD REPORT ---
EXAMINATION: Abdomen Pelvis Wo Contrast CLINICAL INDICATION: Female, 88 years old. Radicular back pain, Acute kidney injury TECHNIQUE: CT abdomen and pelvis was performed, without IV contrast, as per department protocol. Axia l, sagittal and coronal reconstructions were obtained. One or more of the following dose reduction techniques were used: Automated exposure control, adjustment of the mA and kV according to the patien t size, and iterative reconstruction. Unless otherwise specified, incidental findings do not require dedicated imaging follow-up. COMPARISON: 02/19/2023. FINDINGS: The lack of intravenous contrast limits the sensitivity of this exam for evaluation of solid visceral organs, vascular structures, and retroperitoneum. LOWER CHEST: The visualized lung bases are clear. LIVER: Normal in size and contour. No focal lesion. BILIARY SYSTEM: Layering mildly hyperdense gallbladder sludge. No radiopaque calculi. No evidence of intra or extrahepatic biliary ductal dilation. SPLEEN: Normal size. No focal lesion. PANCREAS: No mass, ductal dilation, or erick-pancreatic fluid. ADRENALS: Normal; no mass. KIDNEYS AND URETERS: Normal size and contour. No hydronephrosis. URINARY BLADDER: Normal contour. GASTROINTESTINAL TRACT: Small hiatal hernia. No evidence of bowel obstruction, significant free fluid , free air or abscess. Sigmoid diverticulosis. APPENDIX: Normal appendix. LYMPH NODES: No lymphadenopathy. MUSCULOSKELETAL: No acute or suspicious osseous abnormality. ADDITIONAL FINDINGS: Left lower abdominal wall pain pump in place. IMPRESSION: No acute or concerning abnormalities in the abdomen or pelvis, with evaluation limited by lack of IV contrast. Incidental findings as above.
[2024-07-09] MEDS ORDERED: ONDANSETRON 4 MG/2 ML VIAL IV PRN (14:08)
[2024-07-09] MEDS: NA CHLORIDE 0.9% 1,000 ML IV SCH (14:08)
[2024-07-09 17:10] LABS: Specific Gravity 1.013 (1.005-1.030); Sqamous Epithelial <5 /HPF (None Seen); Urine Bacteria <20 /HPF (<20); Urine Bilirubin NEGATIVE (Negative); Urine Blood Negative (Negative); Urine Clarity Extremely Turbid (Clear); Urine Color Light-Yellow (Yellow); Urine Crystals Unidentified Few /HPF (None Seen); Urine Culture Reflex Order NOT NEEDED; Urine Glucose NEGATIVE (Negative); Urine Ketones NEGATIVE (Negative); Urine Micro Reflex YN NO BILL MICROSCOPIC; Urine Nitrite 2+ (Negative); Urine Protein TRACE (Negative); Urine RBC <5 /HPF (None Seen); Urine Urobilinogen Normal (Normal); Urine WBC <5 /HPF (<5)
[2024-07-09] MEDS: CODEINE 30MG/APAP 300MG TAB PO PRN (20:29)
[2024-07-09] MEDS: LYRICA 25 MG PO SCH (20:29)
[2024-07-09] MEDS: HEPARIN 5000 UNIT/ML 1 ML VIAL SQ SCH (20:32)
[2024-07-10 05:35] LABS: Absolute Basophils 0.1 K/uL (0-0.5); Absolute Eosinophils 0.1 K/uL (0-0.5); Absolute Lymphocytes (CBC) 0.8 K/uL (0.7-4.9); Absolute Monocytes 0.7 K/uL (0.1-1.3); Basophils % 0.7 % (0-1.3); Eosinophils % 1.3 % (0-4.4); Hematocrit 37.1 % (36.0-45.0); Hemoglobin 12.5 g/dL (12.0-15.0); Lymphocytes % 9.4 % (15.3-44.8); MCH 33.1 pg (27.0-35.0); MCHC 33.7 g/dL (32.0-36.0); MCV 98.2 fL (80-100); MPV 7.2 fL (7.6-11.3); Monocytes % 8.5 % (3.3-12.3); Neutrophils % 80.1 % (41.7-73.7); Nucleated Red Blood Cells % 0.1 % (0-0); Platelets 372 thou/uL (152-406); RBC Red Blood Cell Count 3.78 M/uL (3.86-4.86); Red Cell Distribution Width 12.9 % (12.1-15.2)
[2024-07-10 05:59] LABS: Anion Gap 8.9 mEq/L (5.0-15.0); Potassium 4.9 mEq/L (3.5-5.1); Thyroid Stimulating Hormone 1.76 uIU/mL (0.358-3.740)
--- NOTE | 2024-07-10 07:04 | RAD REPORT ---
EXAMINATION: US RETROPERITONEUM CLINICAL INDICATION: jovanny TECHNIQUE: Real-time ultrasonography of the abdomen was performed. COMPARISON: CT 07/09/2024 FINDINGS: RIGHT KIDNEY: Right renal length measurement: 9.2 cm. Normal in echogenicity and size. No calculus, s olid mass or hydronephrosis. LEFT KIDNEY: Left renal length measurement: 9.1 cm. Normal in echogenicity and size. No calculus, chey id mass or hydronephrosis. ADDITIONAL FINDINGS: None. IMPRESSION: No acute or significant abnormalities. No hydronephrosis.
[2024-07-10] MEDS: AMIODARONE HCL 200 MG TAB PO SCH (08:06)
[2024-07-10] MEDS: LIDOCAINE 4% PATCH TOP SCH (08:06)
[2024-07-10] MEDS: LYRICA 25 MG PO SCH (08:42)
[2024-07-10] MEDS ORDERED: Pregabalin [Lyrica] 25 MG Capsule PO SCH (09:00)
--- NOTE | 2024-07-10 13:39 | RAD REPORT ---
EXAMINATION: ONE VIEW CHEST XR CLINICAL INDICATION: Female, 88 years old.COPD TECHNIQUE: 1 View, AP supine, X-ray of the chest was performed. [id number]. COMPARISON: 09/21/2023 FINDINGS: Lungs and pleura: Clear lungs. No effusion. Heart and mediastinum: Normal heart size. Unremarkable mediastinal contours. Osseous structures: No acute abnormality. Tubes/lines: None Other: None. IMPRESSION: No acute intrathoracic abnormality.
--- NOTE | 2024-07-10 14:19 | P.PN ---
Date of Service: 07/10/24 Subjective: Doing well this morning no acute events overnight Was able to stand with PT yesterday T3 seems to help with pain ROS: 10 point ROS as noted above, otherwise negative Physical exam GEN: Alert, oriented, NAD HEENT: Normal conjunctiva, sclera anicteric CV: Regular rate and rhythm, no edema Pulm: Nonlabored respirations on room air ABD: Soft, nontender, nondistended MSK: No joint tenderness Integumentary: No rashes Neuro: Normal speech, normal affect Vitals reviewed Assessment: Acute kidney injury Acute on chronic back pain, lower extremity weakness/deconditioning Recent fall [facility] EF Atrial fibrillation status post Watchman procedure Plan: Acute kidney injury CT negative for obstructive findings Continue gentle IV fluids Nephrology following Denies NSAID usage, reports average p.o. intake Denies nausea/vomiting/diarrhea Acute on chronic back pain, lower extremity weakness/deconditioning Recent fall Worsening back pain radiating to right leg since fall on June 27 Used to get around with a walker well, lives at home but has been needing to use a wheelchair since then Was unable to even get to her wheelchair today given pain in her back, weakness Good strength distal lower extremities, primarily weak in the proximal lower extremities but limited by pain in her back Normal sensation in lower extremities, no saddle paresthesias PT consulted-ambulated 12 feet with walker today likely will need SNF at discharge [facility] EF Appears euvolemic on exam Continue gentle IV fluids for SUDHA Atrial fibrillation status post Watchman procedure Continue home medications when verified DVT PPX: Heparin subcu Code status: Full Discharge Plan: SNF Plan to discharge in: 24 to 48 hours Time Spent Managing Pts Care (In Minutes): 35
--- NOTE | 2024-07-10 15:09 | CON ---
Date of Consultation: 07/10/2024 Reason For Consultation: Elevated BUN and creatinine. History Of Present Illness: This is a pleasant 88-year-old female with significant past medical hist ory of hypotension; atrial fibrillation, status post Watchman and ICD; hyperlipidemia. The patient c yun to the hospital with low blood pressure, low back pain. Upon arrival to the hospital, patient wa s found to have elevation in BUN and creatinine, creatinine 2.4, and for that reason, we have been co nsulted. The patient denied taking any nonsteroidal. No exposure to IV contrast. The patient was s tarted on IV hydration. Kidney function started improving. Reviewing the record for the patient robert k in June, creatinine 1.5 GFR of 33. Past Medical History: Include AFib, status post ICD. Past Surgical History: Includes ICD, hysterectomy, carpal tunnel surgery, colonoscopy, left eye surg marisol. Allergies: MORPHINE, HYDROCODONE. Home Medications: Include sotalol, Lasix, gabapentin, temazepam, cyclobenzaprine, demeclocycline. Social History: Denied smoking. Denied drinking. Denied drugs abuse. Review of Systems: Head and Neck: Had lightheadedness. GI: No nausea, no vomiting. : No polyuria, no dysuria, no hematuria. Director Of Retention: No vaginal discharge. Respiratory: No shortness of breath. Cardiovascular: No chest pain. Endocrine: No polydipsia. Skin: No rash. Neuro: Generalized weakness, low back pain. Musculoskeletal: Low back pain. Physical Examination: General: When I saw the patient, patient was lying in bed, comfortable, mild pain. Vital Signs: Blood pressure 101/73, pulse of 72. Chest: Clear to auscultation. Heart: S1, S2. Regular. Abdomen: Soft nontender. Extremities: No edema. Neuro: Alert. No focality. Laboratory Data: Sodium 137, potassium 4.9, bicarb 25, BUN 90, creatinine 2.2. GFR of 20. Calcium 8.9. WBC 8.8, hemoglobin 12.5. Urinalysis negative for infection. Echocardiogram back in 2021, nor mal ejection fraction. Renal ultrasound, small size kidney. No hydronephrosis, 9.2 and 9.1, echogen ic. Assessment And Plan: 1.Acute kidney injury secondary to low blood pressure, poor perfusion acute tubular necrosis, cardio renal, looks to me still on the dry side. I am going to go ahead and hold blood pressure medication, hold diuresis, and we will send for basic workup and we will monitor the patient. 2.Hypertension, currently blood pressure on the lower side. Hold blood pressure medication. 3.Atrial fibrillation as by primary and Cardiology. 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 ROHAN Voice ID: [id number] Report ID: [id number]
--- NOTE | 2024-07-10 16:55 | EKG ---
Test Date: 2024-07-09 Test Time: 11:51:04 Crane Operator: PEDRITO MEASUREMENT RESULTS: Intervals: Rate: 81 MN: QRSD: 100 QT: 422 QTc: 490 Stark: P: MN: QRS: 96 T: 33 INTERPRETIVE STATEMENTS: Demand pacemaker, interpretation is based on intrinsic rhythm Atrial flutter with variable AV block with premature ventricular or aberrantly conducted complexes Prolonged QT Abnormal ECG Compared to ECG 05/11/2023 18:15:30 Ventricular premature complex(es) now present Sinus rhythm no longer present Electronically Signed On 07-10-24 16:50:45 CDT by Александр Briggs
[2024-07-11 09:51] LABS: Absolute Eosinophils 0.1 K/uL (0-0.5); Absolute Lymphocytes (CBC) 0.9 K/uL (0.7-4.9); Absolute Monocytes 0.3 K/uL (0.1-1.3); Absolute Neutrophil 6.7 K/uL (1.8-8.0); Basophils % 0.6 % (0-1.3); Eosinophils % 1.8 % (0-4.4); Hematocrit 39.5 % (36.0-45.0); Hemoglobin 13.2 g/dL (12.0-15.0); Lymphocytes % 11.6 % (15.3-44.8); MCH 32.8 pg (27.0-35.0); MCHC 33.3 g/dL (32.0-36.0); MCV 98.6 fL (80-100); MPV 7.6 fL (7.6-11.3); Nucleated Red Blood Cells % 0.1 % (0-0); Platelets 337 thou/uL (152-406); RBC Red Blood Cell Count 4.01 M/uL (3.86-4.86)
[2024-07-11 10:02] LABS: Albumin 2.7 g/dL (3.4-5.0); Anion Gap 7.8 mEq/L (5.0-15.0); Phosphorus 2.5 mg/dL (2.5-4.9); Potassium 4.8 mEq/L (3.5-5.1); Uric Acid 7.8 mg/dL (2.6-6.0)
--- NOTE | 2024-07-11 13:49 | P.PN ---
Date of Service: 07/11/24 Subjective: Doing well this morning no acute events overnight T3 seems to help with pain but still note well controlled ROS: 10 point ROS as noted above, otherwise negative Physical exam GEN: Alert, oriented, NAD HEENT: Normal conjunctiva, sclera anicteric CV: Regular rate and rhythm, no edema Pulm: Nonlabored respirations on room air ABD: Soft, nontender, nondistended MSK: No joint tenderness Integumentary: No rashes Neuro: Normal speech, normal affect Vitals reviewed Assessment: Acute kidney injury Acute on chronic back pain, lower extremity weakness/deconditioning Postherpetic neuralgia Recent fall [facility]known EF Atrial fibrillation status post Watchman procedure Plan: Acute kidney injury CT negative for obstructive findings Continue gentle IV fluids-improving to near baseline at this time Nephrology following Denies NSAID usage, reports average p.o. intake Denies nausea/vomiting/diarrhea Acute on chronic back pain, lower extremity weakness/deconditioning Recent fall Postherpetic neuralgia Worsening back pain radiating to right leg since fall on June 27 Used to get around with a walker well, lives at home but has been needing to use a wheelchair since then Was unable to even get to her wheelchair today given pain in her back, weakness Good strength distal lower extremities, primarily weak in the proximal lower extremities but limited by pain in her back Normal sensation in lower extremities, no saddle paresthesias PT consulted-ambulated with walker likely will need SNF at discharge SNF order placed Patient also has severe postherpetic neuralgia to the left thoracic area Sees pain management has been on many different medications Currently on Lyrica 25 mg by mouth twice daily Discussed case with neurology who recommends increasing to Lyrica 50 mg by mouth twice daily Continue PT, other home medications CHFunknown EF Appears euvolemic on exam Continue gentle IV fluids for SUDHA Atrial fibrillation status post Watchman procedure Continue home medications DVT PPX: Heparin subcu Code status: Full Discharge Plan: SNF Plan to discharge in: 24 to 48 hours Time Spent Managing Pts Care (In Minutes): 35
[2024-07-11 14:22] VITALS: BMI 26.6
[2024-07-11] MEDS: HYDROMORPHONE HCL 0.5 MG/0.5 ML INJ IV PRN (20:36)
--- NOTE | 2024-07-11 22:17 | PN ---
Date of Progress Note: 07/11/2024 Chief Complaint: Acute on chronic kidney injury. Subjective: The patient was admitted to the hospital because of generalized weakness and hypotension , lower back pain. The patient was found to have elevated BUN and creatinine level. The patient has history of chronic kidney disease, stage 3B. Baseline creatinine level in June was 1.5. On ar rival to the hospital, workup revealed creatinine of 2.4, acute nonoliguric renal failure and the pat ient denied nonsteroidal anti-inflammatory medication. The patient denied IV contrast exposure. Past Medical History: AFib, status post AICD; chronic kidney disease, stage 3; hyperlipidemia; perip heral neuropathy; chronic pain. Social History: Denies tobacco, alcohol. Physical Examination: Lungs: Clear to auscultation bilaterally. Heart: S1, S2. Abdomen: Soft. Extremities: No edema. Laboratory Data: BUN 90, creatinine 2.2, calcium 8.9. Urinalysis negative for infection. Echocardi ogram back in 2021, normal ejection fraction. Renal ultrasound, small size kidneys. No hydronephros is. Right kidney 9.2 and left kidney 9.1, and there is hyperechogenic findings on both kidneys. Assessment And Plan: 1.Acute kidney injury secondary to hypotension. Renal hypoperfusion resulted in acute tubular necro sis with nonoliguric renal function. The patient has cardiorenal syndrome although patient is volume depleted and she is tolerating IV fluids. Continue to monitor renal function and fluid balance. Co ntinue IV fluids and check lab work for possible nephritis although urinalysis did not show active ur inary sediment. 2.Hypertension. Currently, blood pressure is stabilizing. Continue IV fluids and hold blood pressu re medication. Adjust blood pressure medication while patient is well hydrated. 3.Chronic kidney disease. Avoid nonsteroidal anti-inflammatory medication. Avoid IV contrast. EB/MODL Voice ID: [id number] Report ID: [id number]
[2024-07-11] MEDS: PREGABALIN 50 MG CAP PO SCH (22:20)
[2024-07-12] MEDS: HYDROMORPHONE HCL 0.5 MG/0.5 ML INJ IV ONE (00:45)
[2024-07-12 10:18] LABS: Albumin 2.5 g/dL (3.4-5.0); Anion Gap 8.6 mEq/L (5.0-15.0); Phosphorus 2.1 mg/dL (2.5-4.9); Potassium 4.6 mEq/L (3.5-5.1)
--- NOTE | 2024-07-12 13:18 | P.PN ---
Subjective Date of Service: 07/12/24 Chief Complaint: SUDHA, back pain, weakness Subjective: No new changes Physical Examination - Vital Signs Temperature: 97.3 F Blood Pressure: 111/59 Pulse: 73 Respirations: 16 Pulse Ox (%): 95 - Physical Exam General: In no apparent distress HEENT: Atraumatic, Normocephalic Neck: Supple, JVD not distended Respiratory: Other (symmetric chest expansion) Cardiovascular: No rubs, No murmurs Gastrointestinal: Soft and benign, No guarding Musculoskeletal: No clubbing Integumentary: No warmth Neurological: Normal speech Urinary: Other (No bladder distention) External genitalia: Deferred Rectal: Deferred Assessment And Plan - Plan 1. Acute kidney injury secondary to hypotension. Renal hypoperfusion resulted in acute tubular necrosis with nonoliguric renal function. SCr decreased from 1.5 to 1.1. TTE in March 2022 uunremarkable with LVEF normal at 55-60%. F/u BNP. Encourage liberal by mouth fluid intake. 2. Acidosis. Monitor. 3. Hypophosphatemia. Phos repletion prn. 4. Hypertension. Continue current medication regimen. 3. Chronic kidney disease. Avoid nonsteroidal anti-inflammatory medication. Avoid IV contrast. monitor renal panel.
--- NOTE | 2024-07-12 13:23 | P.PN ---
Date of Service: 07/12/24 Subjective: Doing well this morning no acute events overnight Having significant herpetic neuralgia to the left shoulder area ROS: 10 point ROS as noted above, otherwise negative Physical exam GEN: Alert, oriented, NAD HEENT: Normal conjunctiva, sclera anicteric CV: Regular rate and rhythm, no edema Pulm: Nonlabored respirations on room air ABD: Soft, nontender, nondistended MSK: No joint tenderness Integumentary: No rashes Neuro: Normal speech, normal affect Vitals reviewed Assessment: Acute kidney injury Acute on chronic back pain, lower extremity weakness/deconditioning Postherpetic neuralgia Recent fall [facility] EF Atrial fibrillation status post Watchman procedure Plan: Acute kidney injury CT negative for obstructive findings Renal function improved with IV fluids IV fluids have been discontinued Nephrology following Denies NSAID usage, reports average p.o. intake Denies nausea/vomiting/diarrhea Acute on chronic back pain, lower extremity weakness/deconditioning Recent fall Postherpetic neuralgia Worsening back pain radiating to right leg since fall on June 27 Used to get around with a walker well, lives at home but has been needing to use a wheelchair since then Was unable to even get to her wheelchair today given pain in her back, weakness Good strength distal lower extremities, primarily weak in the proximal lower extremities but limited by pain in her back Normal sensation in lower extremities, no saddle paresthesias PT consulted-ambulated with walker likely will need SNF at discharge SNF order placed Patient also has severe postherpetic neuralgia to the left thoracic area Sees pain management has been on many different medications Discussed case with neurology who recommends increasing to Lyrica 50 mg by mouth twice daily Started increased dose of Lyrica evening of 07/11 Continue PT, other home medications [facility] EF Appears euvolemic on exam IV fluids discontinued Still holding Lasix, spironolactone at this time Atrial fibrillation status post Watchman procedure Continue home medications DVT PPX: Heparin subcu Code status: Full Discharge Plan: SNF Plan to discharge in: 24 to 48 hours Time Spent Managing Pts Care (In Minutes): 35
[2024-07-13 04:45] LABS: Albumin 2.3 g/dL (3.4-5.0); Phosphorus 2.6 mg/dL (2.5-4.9)
[2024-07-13 04:55] LABS: Magnesium 2.4 mg/dL (1.6-2.4)
[2024-07-13] MEDS ORDERED: HYDROMORPHONE HCL 0.5 MG/0.5 ML INJ IV PRN (13:11)
--- NOTE | 2024-07-13 13:13 | P.PN ---
Date of Service: 07/13/24 Subjective: Doing well this morning no acute events overnight Having significant herpetic neuralgia to the left shoulder area Awaiting SNF auth ROS: 10 point ROS as noted above, otherwise negative Physical exam GEN: Alert, oriented, NAD HEENT: Normal conjunctiva, sclera anicteric CV: Regular rate and rhythm, no edema Pulm: Nonlabored respirations on room air ABD: Soft, nontender, nondistended MSK: No joint tenderness Integumentary: No rashes Neuro: Normal speech, normal affect Vitals reviewed Assessment: Acute kidney injury Acute on chronic back pain, lower extremity weakness/deconditioning Postherpetic neuralgia Recent fall [facility] EF Atrial fibrillation status post Watchman procedure Plan: Acute kidney injury CT negative for obstructive findings Renal function improved with IV fluids IV fluids have been discontinued Nephrology following Denies NSAID usage, reports average p.o. intake Denies nausea/vomiting/diarrhea Acute on chronic back pain, lower extremity weakness/deconditioning Recent fall Postherpetic neuralgia Worsening back pain radiating to right leg since fall on June 27 Used to get around with a walker well, lives at home but has been needing to use a wheelchair since then Was unable to even get to her wheelchair today given pain in her back, weakness Good strength distal lower extremities, primarily weak in the proximal lower extremities but limited by pain in her back Normal sensation in lower extremities, no saddle paresthesias PT consulted-ambulated with walker likely will need SNF at discharge SNF order placed Patient also has severe postherpetic neuralgia to the left thoracic area Sees pain management has been on many different medications Discussed case with neurology who recommends increasing to Lyrica 50 mg by mouth twice daily Started increased dose of Lyrica evening of 07/11 Continue PT, other home medications Occupation health consulted as well [facility]known EF Appears euvolemic on exam IV fluids discontinued Still holding Lasix, spironolactone at this time Atrial fibrillation status post Watchman procedure Continue home medications DVT PPX: Heparin subcu Code status: Full Discharge Plan: SNF Plan to discharge in: 24 to 48 hours Time Spent Managing Pts Care (In Minutes): 35
--- NOTE | 2024-07-13 16:35 | P.PN ---
Subjective Date of Service: 07/13/24 Chief Complaint: SUDHA, back pain, weakness Subjective: Other (bedbound.) Physical Examination - Vital Signs Temperature: 97.7 F Blood Pressure: 124/66 Pulse: 92 Respirations: 14 Pulse Ox (%): 94 - Physical Exam General: Other (chronically ill-appearing) HEENT: Atraumatic, Normocephalic Neck: Supple Respiratory: Other (symmetric chest expansion) Cardiovascular: No rubs, No murmurs Gastrointestinal: Soft and benign, No guarding Musculoskeletal: No clubbing Integumentary: No warmth Neurological: Normal speech, Normal tone Urinary: Other (no bladder distention) External genitalia: Deferred Rectal: Deferred Assessment And Plan - Plan 1. Acute kidney injury secondary to hypotension. Renal hypoperfusion resulted in acute tubular necrosis with nonoliguric renal function. SCr decreased from 1.5 to 1.0. TTE in March 2022 uunremarkable with LVEF normal at 55-60%. BNP sig elevated. Encourage liberal by mouth fluid intake. 2. Acidosis. Monitor. 3. Hypophosphatemia. Improved. Phos repletion prn. 4. Hypertension. Continue current medication regimen. 3. Chronic kidney disease. Avoid nonsteroidal anti-inflammatory medication. Avoid IV contrast. monitor renal panel.
[2024-07-14 05:03] LABS: Albumin 2.5 g/dL (3.4-5.0); Anion Gap 8.4 mEq/L (5.0-15.0); Phosphorus 2.7 mg/dL (2.5-4.9); Potassium 5.4 mEq/L (3.5-5.1)
[2024-07-14] MEDS: FUROSEMIDE 20 MG TABLET PO SCH (09:04)
--- NOTE | 2024-07-14 09:57 | P.PN ---
Date of Service: 07/14/24 Subjective: Doing well this morning no acute events overnight Having significant herpetic neuralgia to the left shoulder area Awaiting SNF auth ROS: 10 point ROS as noted above, otherwise negative Physical exam GEN: Alert, oriented, NAD HEENT: Normal conjunctiva, sclera anicteric CV: Regular rate and rhythm, no edema Pulm: Nonlabored respirations on room air ABD: Soft, nontender, nondistended MSK: No joint tenderness Integumentary: No rashes Neuro: Normal speech, normal affect Vitals reviewed Assessment: Acute kidney injury Acute on chronic back pain, lower extremity weakness/deconditioning Postherpetic neuralgia Recent fall [facility] EF Atrial fibrillation status post Watchman procedure Plan: Acute kidney injury CT negative for obstructive findings Renal function improved with IV fluids IV fluids have been discontinued Nephrology following Denies NSAID usage, reports average p.o. intake Denies nausea/vomiting/diarrhea Acute on chronic back pain, lower extremity weakness/deconditioning Recent fall Postherpetic neuralgia Worsening back pain radiating to right leg since fall on June 27 Used to get around with a walker well, lives at home but has been needing to use a wheelchair since then Was unable to even get to her wheelchair today given pain in her back, weakness Good strength distal lower extremities, primarily weak in the proximal lower extremities but limited by pain in her back Normal sensation in lower extremities, no saddle paresthesias PT consulted-ambulated with walker likely will need SNF at discharge SNF order placed Patient also has severe postherpetic neuralgia to the left thoracic area Sees pain management has been on many different medications Discussed case with neurology who recommends increasing to Lyrica 50 mg by mouth twice daily Started increased dose of Lyrica evening of 07/11 Continue PT, other home medications Occupation health consulted as well [facility]known EF Appears euvolemic on exam IV fluids discontinued Holding spironolactone-potassium 5.4 today-was not on ari during hospitalization started back in lasix 20mg daily 07/14, was on lasix 60mg daily prior to hospitalization Atrial fibrillation status post Watchman procedure Continue home medications DVT PPX: Heparin subcu Code status: Full Discharge Plan: SNF Plan to discharge in: 24 to 48 hours Time Spent Managing Pts Care (In Minutes): 35
--- NOTE | 2024-07-15 03:23 | PN ---
Date of Progress Note: 07/14/2024 Chief Complaint: Shortness of breath, generalized weakness. Subjective: The patient denies fever, chills. Denies nausea, vomiting. Physical Examination: General: The patient is awake, alert. Follows commands. Eyes: Anicteric sclerae. EOMI. Ears, Nose, Mouth, and Throat: Oral mucosa moist. No pallor. Neck: Supple. No bruits. Lungs: Diminished breath sounds at bases. Heart: S1, S2. Impression And Plan: 1.Acute kidney injury secondary to hypotension. Renal hypoperfusion resulted in acute tubular necro sis with nonoliguric renal output. Serum creatinine decreased. Continue to monitor. The patient re cently had an echo done and it showed LVEF normal at 50% to 60%. 2.Acidosis, monitor. 3.Hypophosphatemia. The patient received IV phosphorus repletion. 4.Hypertension. Continue current medication. 5.Chronic kidney disease. Avoid anti-inflammatory medication. Avoid nephrotoxic medication. Reggie nue adequate hydration. Monitor renal panel. MAX/BAILEE Voice ID: [id number] Report ID: [id number]
[2024-07-15 05:13] LABS: Albumin 2.6 g/dL (3.4-5.0); Anion Gap 10.1 mEq/L (5.0-15.0); Phosphorus 3.1 mg/dL (2.5-4.9); Potassium 5.1 mEq/L (3.5-5.1)
[2024-07-15] MEDS: HYDROCODONE/APAP 5/325 MG TAB PO PRN (15:53)
--- NOTE | 2024-07-15 16:24 | PN ---
Date of Progress Note: 07/15/2024 Subjective: The patient was admitted to the hospital with acute kidney injury secondary to poor perfusion ATN. Patient's kidney function has been improved significantly. Blood pressure has been stabilized. Objective: Vital Signs: When I saw the patient, blood pressure 107/56, pulse of 76. Chest: Clear to auscultation. Heart: S1, S2. Regular. Abdomen: Soft, nontender. Extremities: No edema. Neurologic: Alert. No focality. Laboratory Data: Sodium 139, potassium 5.1, bicarb 22, BUN 28, creatinine 1.1, GFR 48, calcium 9.4. Assessment And Plan: 1. Acute kidney injury secondary to prerenal, poor perfusion, ATN, recovered, resolved. 2. Acidosis secondary to renal failure, resolved. 3. Hyperkalemia secondary to renal failure, resolved. 4. Hypertension, controlled, optimal. Continue current treatment. ROHAN Voice ID: [id number] Report ID: [id number] EZE
--- NOTE | 2024-07-15 18:42 | P.PN ---
Date of Service: 07/15/24 Subjective: Continues to c/o pain to her left shoulder blade Working with occupational therapy No acute events overnight ROS: 10 point ROS as noted above, otherwise negative Physical exam GEN: AAO x3, NAD HEENT: Normal conjunctiva, sclera anicteric CV: RRR, no edema Pulm: Nonlabored respirations, on room air, clear B BS ABD: Soft and benign palpation, NT/ND MSK: No joint tenderness Integumentary: No rashes Neuro: Normal speech, normal affect Vitals reviewed Assessment: Acute kidney injury Acute on chronic back pain, lower extremity weakness/deconditioning Postherpetic neuralgia Recent fall [facility]known EF Atrial fibrillation status post Watchman procedure Plan: Acute kidney injury CT negative for obstructive findings Renal function improved with IV fluids IV fluids have been discontinued Nephrology following Denies NSAID usage, reports average p.o. intake Denies nausea/vomiting/diarrhea Acute on chronic back pain, lower extremity weakness/deconditioning Recent fall Postherpetic neuralgia Worsening back pain radiating to right leg since fall on June 27 Used to get around with a walker well, lives at home but has been needing to use a wheelchair since then Was unable to even get to her wheelchair today given pain in her back, weakness Good strength distal lower extremities, primarily weak in the proximal lower extremities but limited by pain in her back Normal sensation in lower extremities, no saddle paresthesias PT consulted-ambulated with walker likely will need SNF at discharge SNF order placed Patient also has severe postherpetic neuralgia to the left thoracic area Sees pain management has been on many different medications Discussed case with neurology who recommends increasing to Lyrica 50 mg by mouth twice daily Started increased dose of Lyrica evening of 07/11 Continue PT, other home medications Occupation health consulted [facility] EF Appears euvolemic on exam IV fluids discontinued Holding spironolactone-potassium 5.1 today-was not on ari during hospitalization started back in lasix 20mg daily 07/14, was on lasix 60mg daily prior to hospitalization Atrial fibrillation status post Watchman procedure Continue home medications DVT PPX: Heparin subcu Code status: Full Discharge Plan: Rigo chaudhary pending Plan to discharge in: 24 to 48 hours
--- NOTE | 2024-07-16 11:21 | PN ---
Date of Progress Note: 07/16/2024 Subjective: The patient was admitted to the hospital with acute kidney injury secondary to cardioren al, prerenal. Patient stable. Patient awaiting for placement. Objective: Vital Signs: Blood pressure 112/52, pulse of 80, afebrile. Chest: Clear to auscultation. Heart: S1, S2. Systolic murmur. Abdomen: Soft, nontender. Extremities: No edema. Neurologic: Alert. No focality. Laboratory Data: Hemoglobin 13.2, sodium 139, potassium 5.1, bicarb 22, BUN 28, creatinine 1.1, calc ium 9.4. Current Medications: The patient on include amiodarone, heparin, Zofran, Lasix 20 daily. Assessment And Plan: 1.Acute kidney injury secondary to cardiorenal, normal volume, currently. Continue current Lasix do se. 2.Atrial fibrillation with rapid ventricular response, back rate controlled. 3.Hypertension, controlled, optimal. Continue current treatment. 4.Hyperkalemia secondary to renal failure, resolved. ROHAN Voice ID: [id number] Report ID: [id number]
--- NOTE | 2024-07-16 17:34 | P.PN ---
Date of Service: 07/16/24 Subjective: Awake and sitting on the side of the bed eating breakfast, feeling well this morning Will continue to work with physical therapy Awaiting [facility] approval ROS: 10 point ROS as noted above, otherwise negative Physical exam GEN: Awake, alert, and oriented x3, NAD HEENT: Normal conjunctiva, sclera anicteric CV: Regular rate and rhythm, no edema Pulm: Nonlabored respirations, symmetrical chest wall movement, clear BBS, on room air ABD: Soft on palpation, normal active bowel sounds, ND/NT MSK: No joint tenderness Integumentary: No rashes Neuro: Normal speech, normal affect Vitals reviewed Assessment: Acute kidney injury Acute on chronic back pain, lower extremity weakness/deconditioning Postherpetic neuralgia Recent fall [facility] EF Atrial fibrillation status post Watchman procedure Plan: Acute kidney injury CT negative for obstructive findings Renal function improved with IV fluids IV fluids have been discontinued Nephrology following Denies NSAID usage, reports average p.o. intake Denies nausea/vomiting/diarrhea Acute on chronic back pain, lower extremity weakness/deconditioning Recent fall Postherpetic neuralgia Worsening back pain radiating to right leg since fall on June 27 Used to get around with a walker well, lives at home but has been needing to use a wheelchair since then Was unable to even get to her wheelchair today given pain in her back, weakness Good strength distal lower extremities, primarily weak in the proximal lower extremities but limited by pain in her back Normal sensation in lower extremities, no saddle paresthesias PT consulted-ambulated with walker likely will need SNF at discharge Patient also has severe postherpetic neuralgia to the left thoracic area Sees pain management has been on many different medications Discussed case with neurology who recommends increasing to Lyrica 50 mg by mouth twice daily Started increased dose of Lyrica evening of 07/11 Continue PT, other home medications Occupation health consulted [facility] pending approval [facility] EF Appears euvolemic on exam IV fluids discontinued Holding spironolactone-d/t hyperkalemia-was not on ari during hospitalization started back in lasix 20mg daily 07/14, was on lasix 60mg daily prior to hospitalization Atrial fibrillation status post Watchman procedure Continue home medications HR controlled DVT PPX: Heparin subcu Code status: Full Discharge Plan: [facility] auth pending
[2024-07-17] MEDS: PREGABALIN 75 MG CAP PO SCH (09:25)
[2024-07-17 09:34] VITALS: TEMP 97
[2024-07-17 09:41] LABS: Anion Gap 11.1 mEq/L (5.0-15.0)
[2024-07-17 09:47] LABS: Potassium 5.1 mEq/L (3.5-5.1)
--- NOTE | 2024-07-17 10:53 | PN ---
Date of Progress Note: 07/17/2024 Subjective: The patient was admitted to the hospital with acute kidney injury secondary to prerenal, cardiorenal with AFib and RVR, rate has been controlled, currently. Objective: Vital Signs: When I saw the patient, blood pressure 105/55, pulse of 72. Chest: Clear to auscultation. Heart: S1, S2. Systolic murmur. Abdomen: Soft nontender. Extremities: No edema. Neurologic: Alert. No focality. Laboratory Data: WBC 8.0, hemoglobin 13.2. Sodium 140, potassium 5.1, bicarb 21, BUN 37, creatinine 1.3, GFR dropped to 39. Current Medications: The patient on include Lasix 20, amlodipine, heparin, amiodarone, hydrocodone. Assessment And Plan: 1.Acute kidney injury secondary to cardiorenal and prerenal, currently bounced back, looked to me on the dry side. I am going to discontinue Lasix. We will repeat chest x-ray for better evaluation of the fluid status and we will monitor. 2.Hypertension, controlled, optimal with the presence of worsening kidney function. Discontinue Las ix. 3.Atrial fibrillation with rapid ventricular response, rate controlled. Continue amiodarone. Follo w up with Cardiology. 4.Hyperkalemia, resolved. ALEXYS/BAILEE Voice ID: [id number] Report ID: [id number]
--- NOTE | 2024-07-17 13:12 | RAD REPORT ---
EXAMINATION: ONE VIEW CHEST XR CLINICAL INDICATION: COPD TECHNIQUE: Frontal chest projection is submitted. Examination is limited by patient positioning and t echnique. COMPARISON: 07/10/2024 FINDINGS: The lungs are mildly emphysematous but clear. The heart is upper limit of normal in size. No displace d fractures identified. Multilead pacer device present. IMPRESSION: No acute intrathoracic abnormalities.
--- NOTE | 2024-07-17 13:28 | P.PN ---
Date of Service: 07/17/24 Subjective: No new complaints Requiring physical therapy for steady ambulation, decreased endurance and slower shawn as reported by PT Will continue to work with physical therapy Awaiting [facility] approval ROS: 10 point ROS as noted above, otherwise negative Physical exam GEN: AAO x3, NAD, conversing well HEENT: Normal conjunctiva, sclera anicteric CV: RRR, HR 72, no edema Pulm: Nonlabored respirations, clear BBS, on room air ABD: Soft on palpation, normal active bowel sounds, ND/NT MSK: No joint tenderness Integumentary: No rashes Neuro: Normal speech, normal affect Vitals reviewed Assessment: Acute kidney injury Acute on chronic back pain, lower extremity weakness/deconditioning Postherpetic neuralgia Recent fall [facility] EF Atrial fibrillation status post Watchman procedure Plan: Acute kidney injury CT negative for obstructive findings Renal function improved with IV fluids IV fluids have been discontinued Nephrology following Denies NSAID usage, reports average p.o. intake Denies nausea/vomiting/diarrhea Acute on chronic back pain, lower extremity weakness/deconditioning Recent fall Postherpetic neuralgia Worsening back pain radiating to right leg since fall on June 27 Used to get around with a walker well, lives at home but has been needing to use a wheelchair since then Was unable to even get to her wheelchair today given pain in her back, weakness Good strength distal lower extremities, primarily weak in the proximal lower extremities but limited by pain in her back Normal sensation in lower extremities, no saddle paresthesias PT consulted-ambulated with walker likely will need SNF at discharge Patient also has severe postherpetic neuralgia to the left thoracic area Sees pain management has been on many different medications Discussed case with neurology who recommends increasing to Lyrica 50 mg by mouth twice daily Started increased dose of Lyrica evening of 07/11 Continue PT, other home medications Occupation health consulted [facility] pending approval [facility] EF Appears euvolemic on exam IV fluids discontinued Holding spironolactone-d/t hyperkalemia-was not on ari during hospitalization started back in lasix 20mg daily 07/14, was on lasix 60mg daily prior to hospitalization Atrial fibrillation status post Watchman procedure Continue home medications HR controlled DVT PPX: Heparin subcu Code status: Full Discharge Plan: [facility] auth pending
[2024-07-17 14:15] VITALS: BP 109/71
--- NOTE | 2024-07-17 15:20 | P.DS ---
Admission Date: 07/09/24 Discharge Date: 07/17/24 Disposition: TRANSFER TO SNF - REHAB Discharge Condition: GOOD Reason for Admission: SUDHA, back pain, weakness Brief History of Present Illness: Diagnosis Acute kidney injury Acute on chronic back pain, lower extremity weakness/deconditioning Postherpetic neuralgia Recent fall [facility] EF Atrial fibrillation status post Watchman procedure HPI 07/09/24 Bismark Clayton is a 88-year-old female with history of chronic back pain with pain pump in place, atrial fibrillation status post Watchman procedure presents to the emergency department with chief complaint of back pain. She lives alone and reports that she had a fall on June 27 and has been having significant back pain and difficulty getting around since then. She usually uses a walker to get around but since the fall has been need to use wheelchair and has pain in her low back radiating down both legs but mostly her right leg. She is evaluated in the emergency department and found to have an acute kidney injury with a creatinine of 2.42, baseline creatinine is around 1.5. She had imaging of her lumbar spine and pelvis which showed arthritic findings but no other acute findings. ED doctor wishes to admit patient for SUDHA, back pain/weakness. Hospital Course: Bismark Clayton is a pleasant 88 year old female with a past medical history significant for chronic back pain with pain pump in place, atrial fibrillation status post Watchman procedure who was admitted to the [facility] on 07/09/2024 for weakness, SUDHA, and chronic back pain. Bismark Clayton presented to the ED with chief complaint falling and weakness. She has significant pain to right upper back from postherpatic neuralgia. She was found to have an SUDHA requiring gentle fluids and nephrology consult. She has worked with physical therapy who helped her management movement safely and productively. Occupational therapy consulted as well. She is tolerating PO diet and has been able to sit on the EOB with better controlled pain this morning, lyrica dose adjusted. Kidney function has improved, urinating without difficulty, and hemodynamically stable for discharge. On 07/17/2024, Bismark was seen on morning rounds and deemed medically stable for discharge [facility]. Bismark was discharged with instructions to schedule follow-up appointments with Dr. Sanchez, Dr. Varela, and PCP. Bismark was provided prescriptions for lyrica and lidocaine patch. Physical exam GEN: AAO x3, NAD, conversing well HEENT: Normal conjunctiva, sclera anicteric CV: RRR, HR 72, no edema Pulm: Nonlabored respirations, clear BBS, on room air ABD: Soft on palpation, normal active bowel sounds, ND/NT MSK: No joint tenderness Integumentary: No rashes Neuro: Normal speech, normal affect Vital Signs/Physical Exam: Temp Pulse Resp BP Pulse Ox 97.0 F 100 H 16 109/71 99 07/17/24 12:00 07/17/24 12:00 07/17/24 12:00 07/17/24 12:00 07/17/24 12:00 Laboratory Data at Discharge: WBC 8.20 thou/uL (4.3-10.9) 07/11/24 09:10 Hgb 13.2 g/dL (12.0-15.0) 07/11/24 09:10 Hct 39.5 % (36.0-45.0) 07/11/24 09:10 Plt Count 337 thou/uL (152-406) 07/11/24 09:10 Sodium 140 mEq/L (136-145) 07/17/24 08:52 Potassium 5.1 mEq/L (3.5-5.1) 07/17/24 08:52 BUN 37 mg/dL (7-18) H 07/17/24 08:52 Creatinine 1.31 mg/dL (0.55-1.02) H 07/17/24 08:52 Glucose 95 mg/dL (74-106) 07/17/24 08:52 Uric Acid 7.8 mg/dL (2.6-6.0) H 07/11/24 09:10 Phosphorus 3.1 mg/dL (2.5-4.9) 07/15/24 04:19 Magnesium 2.4 mg/dL (1.6-2.4) 07/13/24 04:10 Total Bilirubin 0.6 mg/dL (0.2-1.0) 07/09/24 11:40 AST 13 U/L (15-37) L 07/09/24 11:40 ALT 15 U/L (13-56) 07/09/24 11:40 Alkaline Phosphatase 128 U/L (45-117) H 07/09/24 11:40 Home Medications: Acetaminophen with Codeine [Acetaminophen-Cod #4 Tablet] 1 tab PO Q6HP PRN 07/09/24 Amiodarone HCl [Cordarone*] 200 mg PO BID 07/09/24 Hydrocodone 5/APAP 325 [[place] 5/325*] 1 tab PO Q6H PRN tab 07/17/24 Lidocaine 4% Patch [Lidoderm 5% Patch*] 1 patch TOP DAILY 30 Days #30 pat 07/17/24 Pregabalin [Lyrica*] 75 mg PO BID 30 Days #60 cap 07/17/24 New Medications: Lidocaine 4% Patch [Lidoderm 5% Patch*] 1 patch TOP DAILY 30 Days #30 pat Pregabalin [Lyrica*] 75 mg PO BID 30 Days #60 cap Physician Discharge Instructions: PROBLEM: Acute Kidney Injury GOAL: Clear understanding of disease process INSTRUCTIONS: Diet: AHA Activity: Fall precautions 1. Please call and schedule a follow-up appointment with your PCP in 3-5 days - Please follow-up with your PCP for medication refills/adjustments -Stop Lasix and Aldactone due to low blood pressure during admission, reevaluate with PCP 2. Please call and schedule a follow-up appointment with Dr. Sanchez in 1-2 weeks -continued management of right postherpetic neuralgia 3. Please call and schedule follow-up appointment with Dr. Varela in 1 to 2 weeks 4. Continue heart healthy diet 5. activity restrictions fall precautions, work with Physical therapy 6. Return to the ED if symptoms worsen Dose change Lyrica 75 mg twice daily New medication Lidocaine patch daily Stopped medications-blood pressure has been low during this admission, please reevaluate with PCP to restart. Lasix Aldactone Diet: AHA Activity: Fall precautions Followup: Noel Davis MD [Primary Care Provider] - Abena Varela MD [ACTIVE - CAN ADMIT] - Rg Sanchez MD [ASSOCIATE-ACTIVE - CAN ADMIT] -
[2024-07-17 16:09] VITALS: O2SAT 97
== END 2024-07-17 16:40 | DRG 683 ==
LOC: ER 09:15 → 2ND 13:01
PROVIDERS: ADMIT Hospitalist; ATTEND Internal Medicine
DX: N17.0 Acute kidney failure with tubular necrosis (principal); B02.29 Other postherpetic nervous system involvement; I13.0 Hypertensive heart and chronic kidney disease with heart failure and stage 1 through stage 4 chronic kidney disease, or unspecified chronic kidney disease; E87.20 Acidosis, unspecified; I50.9 Heart failure, unspecified; N18.32 Chronic kidney disease, stage 3b; E87.5 Hyperkalemia; E78.5 Hyperlipidemia, unspecified; I48.91 Unspecified atrial fibrillation; E83.39 Other disorders of phosphorus metabolism; M79.2 Neuralgia and neuritis, unspecified; M81.0 Age-related osteoporosis without current pathological fracture; Z88.5 Allergy status to narcotic agent; Z95.0 Presence of cardiac pacemaker; Z60.2 Problems related to living alone; Z88.8 Allergy status to other drugs, medicaments and biological substances; Z74.01 Bed confinement status; Z79.899 Other long term (current) drug therapy; Z90.710 Acquired absence of both cervix and uterus
CPT/HCPCS: 36415; 71045; 72100; 72170; 74176; 76770; 80048; 80053; 80069; 81001; 82550; 82570; 83735; 83880; 83970; 84156; 84439; 84443; 84550; 85025; 93005; 96360; 96361; 97116; 97161; 97165; 97530; 99285; J1170; J1644; J2001; J7030

== ENCOUNTER 2024-08-03 14:48 | Emergency (ER) | payer OTHER ==
--- NOTE | 2024-08-03 15:20 | RAD REPORT ---
Abdomen Exam Limited: 08/03/2024 3:15 PM CLINICAL HISTORY: ABD PAIN STUDY: Limited right upper quadrant ultrasound of abdomen. COMPARISON: 07/10/2024 FINDINGS: Liver: No significant abnormality. Bile ducts: No intrahepatic or extrahepatic biliary dilatation. Common bile duct measures 2 mm. Gallbladder: Normal. IMPRESSION: Unremarkable exam.
[2024-08-03 15:44] LABS: Absolute Eosinophils 0.1 K/uL (0-0.5); Absolute Lymphocytes (CBC) 0.8 K/uL (0.7-4.9); Absolute Monocytes 0.7 K/uL (0.1-1.3); Absolute Neutrophil 6.1 K/uL (1.8-8.0); Basophils % 0.3 % (0-1.3); Eosinophils % 1.7 % (0-4.4); Hemoglobin 12.7 g/dL (12.0-15.0); Lymphocytes % 9.8 % (15.3-44.8); MCHC 33.4 g/dL (32.0-36.0); MCV 98.8 fL (80-100); MPV 7.2 fL (7.6-11.3); Neutrophils % 79.2 % (41.7-73.7); Platelets 309 thou/uL (152-406); RBC Red Blood Cell Count 3.84 M/uL (3.86-4.86)
[2024-08-03] MEDS ORDERED: MORPHINE 4 MG/ML SYR ONE (15:55)
[2024-08-03] MEDS ORDERED: ONDANSETRON 4 MG/2 ML VIAL ONE (15:55)
[2024-08-03] MEDS ORDERED: KETOROLAC 30 MG/ML INJ ONE (16:02)
[2024-08-03 16:06] LABS: ALT/SGPT < 14 U/L (13-56); AST/SGOT 13 U/L (15-37); Albumin 2.3 g/dL (3.4-5.0); Albumin/Globulin Ratio 0.6 (1.1-1.8); Alkaline Phosphatase 167 U/L (45-117); Anion Gap 7.9 mEq/L (5.0-15.0); BUN Blood Urea Nitrogen 17 mg/dL (7-18); Bicarbonate 25 mEq/L (21-32); Bilirubin Total 0.4 mg/dL (0.2-1.0); Globulin 3.8 g/dL (2.3-3.5); Glomerular Filtration Rate 53 ml/min (=/>90); Glucose Level 98 mg/dL (74-106); Lipase 26 U/L (13-75); Potassium 3.9 mEq/L (3.5-5.1); Protein, Total 6.1 g/dL (6.4-8.2); Sodium Level 140 mEq/L (136-145); Troponin High Sensitivity 13.5 pg/mL (<58.9)
--- NOTE | 2024-08-03 16:49 | RAD REPORT ---
EXAMINATION: CT ABDOMEN AND PELVIS WITH CONTRAST CLINICAL INDICATION: Female, 88 years old.ABD PAIN TECHNIQUE: CT abdomen and pelvis was performed, after the administration of IV contrast, as per [facility] protocol. Axial, sagittal and coronal reconstructions were obtained. One or more of the following dose reduction techniques were used: Automated exposure control, adjustment of the mA and/o r kV according to patient size, and/or iterative reconstruction. Unless otherwise specified, incidental findings do not require dedicated imaging follow-up. [id number]. COMPARISON: 02/19/2023 FINDINGS: LOWER CHEST: Small bilateral pleural effusions and likely underlying atelectasis. Pacemaker. Cardiome caitlyn. LIVER: Normal in size and contour. No focal lesion. GALLBLADDER/BILE DUCT: No biliary ductal dilatation.? PANCREAS: No significant abnormality. SPLEEN: Normal size. No focal lesion. ADRENALS: Normal; no mass. KIDNEYS AND URETERS: No hydronephrosis. No suspicious renal masses. GASTROINTESTINAL TRACT: Stomach is non-dilated. Small bowel has normal course and caliber. No colonic wall thickening or pericolonic inflammatory changes. Moderate colonic stool. PERITONEUM: No ascites. LYMPH NODES: No lymphadenopathy. ABDOMINAL AORTA AND OTHER VESSELS: Normal caliber aorta and IVC. Atherosclerosis. URINARY BLADDER: Normal contour. REPRODUCTIVE ORGANS: No pathologic process hysterectomy. MUSCULOSKELETAL: Suspected bilateral sacral insufficiency fractures. ADDITIONAL FINDINGS: Pain pump in the left abdominal wall. IMPRESSION: No acute or significant abnormalities seen in the abdomen or pelvis. Suspect bilateral sacral insufficiency fractures, probably subacute though better seen on today's exa m. MRI could confirm.
[2024-08-03 19:04] LABS: Specific Gravity 1.023 (1.005-1.030); Urine Bilirubin NEGATIVE (Negative); Urine Blood Negative (Negative); Urine Clarity Clear (Clear); Urine Color Light-Yellow (Yellow); Urine Glucose NEGATIVE (Negative); Urine Ketones NEGATIVE (Negative); Urine Microscopic Reflex YN NO UMIC; Urine Nitrite NEGATIVE (Negative); Urine Protein NEGATIVE (Negative); Urine Urobilinogen Normal (Normal); Urine pH 6.5 (5.0-7.0)
--- NOTE | 2024-08-03 19:06 | ER ---
Nurse's Notes [facility] Name: Bismark Clayton Age: 88 yrs Sex: Female : 1935 Arrival Date: 08/03/2024 Time: 14:48 Bed 5 Private MD: Diagnosis: Abdominal pain Presentation: 08/03 14:49 Chief complaint: EMS states: RUQ pain since this morning. Coronavirus screen: At this iw time, the client does not indicate any symptoms associated with coronavirus-19. Ebola Screen: No symptoms or risks identified at this time. Initial Sepsis Screen: Does the patient meet any 2 criteria? No. Patient's initial sepsis screen is negative. Does the patient have a suspected source of infection? No. Patient's initial sepsis screen is negative. Risk Assessment: Do you want to hurt yourself or someone else? Patient reports no desire to harm self or others. Onset of symptoms was August 03, 2024. Transition of care: patient was received from another setting of care (long-term care facility), [facility]. 14:49 Method Of Arrival: EMS: [facility] iw 14:49 Acuity: GAURAV 3 iw Triage Assessment: 14:52 General: Appears in no apparent distress. uncomfortable, Behavior is calm, cooperative. rs5 Pain: Complains of pain in abdomen. GI: Abdomen is round non-distended. 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 - Infectious Disease History:: Denies. - Social history:: Smoking status: Patient denies any tobacco usage or history of. Screenin:50 [facility] ED Fall Risk Assessment (Adult) History of falling in the last 3 months, rs5 including since admission No falls in past 3 months (0 pts) Confusion or Disorientation No (0 pts) Intoxicated or Sedated No (0 pts) Impaired Gait No (0 pts) Mobility Assist Device Used No (0 pt) Altered Elimination No (0 pt) Score/Fall Risk Level 0 - 2 = Low Risk Oriented to surroundings, Maintained a safe environment. 14:50 Abuse screen: Denies threats or abuse. Nutritional screening: No deficits noted. rs5 Tuberculosis screening: No symptoms or risk factors identified. Assessment: 14:51 General: Appears in no apparent distress. uncomfortable, Behavior is calm, cooperative. rs5 Pain: Complains of pain in abdomen Pain currently is 8 out of 10 on a pain scale. Quality of pain is described as aching, Is continuous. Neuro: Level of Consciousness is awake, alert, obeys commands, Oriented to person, place, time, situation. Cardiovascular: Patient's skin is warm and dry. Respiratory: Airway is patent Respiratory effort is even, unlabored, Respiratory pattern is regular, symmetrical. GI: Abdomen is round non-distended, Bowel sounds present X 4 quads. Abd is soft and non tender X 4 quads. 14:51 : No signs and/or symptoms were reported regarding the genitourinary system. EENT: No rs5 signs and/or symptoms were reported regarding the EENT system. Derm: Skin is intact, Skin is pink, warm \\T\\ dry. Musculoskeletal: Range of motion: intact in all extremities. 16:01 Reassessment: Patient and/or family updated on plan of care and expected duration. Pain rs5 level reassessed. Patient is alert, oriented x 3, equal unlabored respirations, skin warm/dry/pink. 16:50 Reassessment: Patient and/or family updated on plan of care and expected duration. Pain rs5 level reassessed. Patient is alert, oriented x 3, equal unlabored respirations, skin warm/dry/pink. 17:39 Reassessment: Patient and/or family updated on plan of care and expected duration. Pain rs5 level reassessed. Patient is alert, oriented x 3, equal unlabored respirations, skin warm/dry/pink. 19:17 Reassessment: Patient and/or family updated on plan of care and expected duration. Pain rs5 level reassessed. Patient is alert, oriented x 3, equal unlabored respirations, skin warm/dry/pink. 19:55 Reassessment: Patient and/or family updated on plan of care and expected duration. Pain ha1 level reassessed. Patient is alert, oriented x 3, equal unlabored respirations, skin warm/dry/pink. DISCHARGE PENDING DUE TO TRANSPORTATION. [facility] MAKING ARRANGEMENTS FOR TRANSPORTATION. WILL CALL BACK WITH ETA Patient denies pain at this time. 20:00 Reassessment: SPOKE WITH DR. OWEN ABOUT PUTTING IN AN ORDER OF 4 MG OF MORPHINE FOR ha1 UNDOCUMENTED ORDER. HE STATED " I FORGOT TO PUT IN THE ORDER". 20:09 Reassessment: [facility] CABLE WEAVER STATES " [facility] WILL BE THERE IN 30 ha1 MINUTES". 20:35 Reassessment: Patient is alert, oriented x 3, equal unlabored respirations, skin mt4 warm/dry/pink. General: Appears in no apparent distress. comfortable, Behavior is calm, cooperative, appropriate for age. Pain: Complains of pain in abdomen. Neuro: Level of Consciousness is awake, alert, obeys commands, Oriented to person, place, time, situation, Appropriate for age. Respiratory: Airway is patent Respiratory effort is even, unlabored, Respiratory pattern is regular, symmetrical. Musculoskeletal:. Vital Signs: 14:51 BP 112 / 63; Pulse 97; Resp 16; Temp 98.2(O); Pulse Ox 93% on R/A; Pain 6/10; iw 16:51 BP 117 / 68; Pulse 81; Resp 17; Pulse Ox 95% on R/A; rs5 17:39 BP 120 / 74; Pulse 77; Resp 17; Pulse Ox 96% on R/A; rs5 20:35 BP 121 / 89; Pulse 75; Resp 20; Temp 98.2(O); Pulse Ox 95% on 2 lpm NC; Pain 0/10; mt4 14:51 Pain Scale: Adult iw 20:35 Pain Scale: Adult mt4 Peterson Coma Score: 20:35 Eye Response: spontaneous(4). Motor Response: obeys commands(6). Verbal Response: mt4 oriented(5). Total: 15. ED Course: 14:49 Patient arrived in ED. iw 14:49 Ksenia Owen MD is Attending Physician. sp3 14:50 Triage completed. iw 14:50 Arm band placed on. iw 14:50 Patient has correct armband on for positive identification. Bed in low position. Call rs5 light in reach. Side rails up X2. 14:50 No provider procedures requiring assistance completed. rs5 15:12 Leonard Segura, RN is Primary Nurse. rs5 15:17 Abdomen Limited US In Process Unspecified. EDMS 15:24 Missed attempt(s): 20 gauge in right antecubital area. Bleeding controlled, band aid iw applied, catheter tip intact. 15:24 Missed attempt(s): 22 gauge in right forearm. Bleeding controlled, band aid applied, iw catheter tip intact. 15:52 Inserted saline lock: 22 gauge in right forearm, using aseptic technique. me1 16:30 CT Abd/Pelvis - IV Contrast Only In Process Unspecified. EDMS 20:35 Provided Education on: discharge eduacation . mt4 20:35 IV discontinued, intact, bleeding controlled, No redness/swelling at site. Pressure mt4 dressing applied. Oxygen administration via nasal cannula \\T\\ 2L/min. Administered Medications: 16:05 Drug: Ondansetron IVP 4 mg IVP once; over 2 minutes Route: IVP; Site: right forearm; rs5 16:20 Follow up: Response: No adverse reaction; Nausea is decreased rs5 16:05 Not Given (Patient Refused): morphineor iv 2 mg IVP once over 4 mins rs5 16:05 Drug: Ketorolac IVP 15 mg IVP once Route: IVP; Site: right forearm; rs5 16:20 Follow up: Response: No adverse reaction; Pain is decreased rs5 20:24 Not Given (Physician Discretion): morphineor iv 4 mg IVP once over 4 mins ha1 Medication: 16:51 VIS not applicable for this client. rs5 Outcome: 19:05 Discharge ordered by . sp3 20:35 Discharged to retirement. Report called to retirement by charge mt4 20:35 Condition: stable 20:35 Discharge instructions given to patient, Instructed on discharge instructions, follow up and referral plans. Demonstrated understanding of instructions, follow-up care, medications, 20:40 Patient left the ED. mt4 Signatures: Dispatcher [employer] Rhea Kolb, RN GINO iw Ksenia Owen MD MD sp3 vIon Bar RN RN ha1 Leonard Segura RN RN rs5 Cecy Avendano RN RN dc1 Peri Kenyon RN RN mt4
--- NOTE | 2024-08-03 19:06 | EDPHYS ---
Physician Documentation [facility] Name: Bismark Clayton Age: 88 yrs Sex: Female : 1935 Arrival Date: 08/03/2024 Time: 14:48 Bed 5 Private MD: ED Physician Ksenia Owen HPI: 08/03 15:27 This 88 yrs old Female presents to ER via EMS with complaints of Abdominal Pain. sp3 15:27 88-year-old female with history of diverticulitis, hyperlipidemia, migraines from [address] with chief complaint right upper quadrant abdominal pain. Nausea and vomiting x 1. Denies fever, chest pain, shortness of breath, lower abdominal pain, diarrhea, known sick contacts, travel history, prolonged immobilization, or any other signs or symptoms on ROS at this time.. 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 - Infectious Disease History:: Denies. - Social history:: Smoking status: Patient denies any tobacco usage or history of. ROS: 15:28 Constitutional: Negative for fever, chills, and weight loss, Eyes: Negative for injury, sp3 pain, redness, and discharge, ENT: Negative for injury, pain, and discharge, Neck: Negative for injury, pain, and swelling, Cardiovascular: Negative for chest pain, palpitations, and edema, Respiratory: Negative for shortness of breath, cough, wheezing, and pleuritic chest pain, Back: Negative for injury and pain, MS/Extremity: Negative for injury and deformity, Skin: Negative for injury, rash, and discoloration, Neuro: Negative for headache, weakness, numbness, tingling, and seizure, Psych: Negative for depression, anxiety, suicide ideation, homicidal ideation, and hallucinations, Allergy/Immunology: Negative for hives, rash, and allergies, Endocrine: Negative for neck swelling, polydipsia, polyuria, polyphagia, and marked weight changes, Hematologic/Lymphatic: Negative for swollen nodes, abnormal bleeding, and unusual bruising, 15:28 All other systems are negative, Exam: 15:28 Constitutional: This is a well developed, well nourished patient who is awake, alert, sp3 and in no acute distress. Head/Face: Normocephalic, atraumatic. Eyes: Pupils equal round and reactive to light, extra-ocular motions intact. Lids and lashes normal. Conjunctiva and sclera are non-icteric and not injected. Cornea within normal limits. Periorbital areas with no swelling, redness, or edema. Neck: Trachea midline, no thyromegaly or masses palpated, and no cervical lymphadenopathy. Supple, full range of motion without nuchal rigidity, or vertebral point tenderness. No Meningismus. Chest/axilla: Normal chest wall appearance and motion. Nontender with no deformity. No lesions are appreciated. Cardiovascular: Regular rate and rhythm with a normal S1 and S2. No gallops, murmurs, or rubs. Normal PMI, no JVD. No pulse deficits. Respiratory: Lungs have equal breath sounds bilaterally, clear to auscultation and percussion. No rales, rhonchi or wheezes noted. No increased work of breathing, no retractions or nasal flaring. Back: No spinal tenderness. No costovertebral tenderness. Full range of motion. Skin: Warm, dry with normal turgor. Normal color with no rashes, no lesions, and no evidence of cellulitis. MS/ Extremity: Pulses equal, no cyanosis. Neurovascular intact. Full, normal range of motion. Neuro: Awake and alert, GCS 15, oriented to person, place, time, and situation. Cranial nerves II-XII grossly intact. Motor strength 5/5 in all extremities. Sensory grossly intact. Cerebellar exam normal. Normal gait. Psych: Awake, alert, with orientation to person, place and time. Behavior, mood, and affect are within normal limits. 15:28 Abdomen/GI: Right upper quadrant abdominal pain without peritoneal signs, rebound or guarding, Vital Signs: 14:51 BP 112 / 63; Pulse 97; Resp 16; Temp 98.2(O); Pulse Ox 93% on R/A; Pain 6/10; iw 16:51 BP 117 / 68; Pulse 81; Resp 17; Pulse Ox 95% on R/A; rs5 17:39 BP 120 / 74; Pulse 77; Resp 17; Pulse Ox 96% on R/A; rs5 20:35 BP 121 / 89; Pulse 75; Resp 20; Temp 98.2(O); Pulse Ox 95% on 2 lpm NC; Pain 0/10; mt4 14:51 Pain Scale: Adult iw 20:35 Pain Scale: Adult mt4 [place] Coma Score: 20:35 Eye Response: spontaneous(4). Motor Response: obeys commands(6). Verbal Response: mt4 oriented(5). Total: 15. MDM: 14:50 Medical Screening Exam initiated sp3 15:29 Data reviewed: vital signs, nurses notes, lab test result(s), radiologic studies. ED sp3 course: 88-year-old female with PMH above now with abdominal pain epigastric rating to the right upper quadrant. Consider biliary pathology including cholecystitis, choledocholithiasis, pancreatitis, gastritis, colitis, among others. I am not highly suspicious for acute coronary syndrome, vascular pathology, mesenteric ischemia, or any other critical process. Workup will include laboratory values, UA, CT scan of the abdomen pelvis, ultrasound right upper quadrant and general supportive care with morphine and ondansetron and IV fluids. Disposition pending workup and patient course.. 18:56 ED course: Patient is full workup negative so far. Vital signs normal. UA is negative. sp3 We will safely discharge patient home at this time.. 08/03 14:51 Order name: CBC with Diff; Complete Time: 16:56 3 08/03 14:51 Order name: CMP; Complete Time: 16:56 3 08/03 14:51 Order name: Lipase; Complete Time: 16:56 3 08/03 14:51 Order name: Urinalysis w/ reflexes; Complete Time: 19:04 sp3 08/03 14:51 Order name: Troponin High Sensitivity; Complete Time: 16:56 3 08/03 14:51 Order name: Lactate w/ 2H reflex if indic.; Complete Time: 16:56 3 08/03 14:51 Order name: Abdomen Limited US; Complete Time: 16:56 3 08/03 14:51 Order name: CT Abd/Pelvis - IV Contrast Only; Complete Time: 16:56 3 08/03 14:51 Order name: IV Saline Lock; Complete Time: 16:06 3 08/03 14:51 Order name: Labs collected and sent; Complete Time: 16:06 sp3 Administered Medications: 16:05 Drug: Ondansetron IVP 4 mg IVP once; over 2 minutes Route: IVP; Site: right forearm; rs5 16:20 Follow up: Response: No adverse reaction; Nausea is decreased rs5 16:05 Not Given (Patient Refused): morphineor iv 2 mg IVP once over 4 mins rs5 16:05 Drug: Ketorolac IVP 15 mg IVP once Route: IVP; Site: right forearm; rs5 16:20 Follow up: Response: No adverse reaction; Pain is decreased rs5 20:24 Not Given (Physician Discretion): morphineor iv 4 mg IVP once over 4 mins ha1 Disposition Summary: 08/03/24 19:05 Discharge Ordered Notes: Location: Home sp3 Condition: Stable sp3 Diagnosis - Abdominal pain sp3 Followup: sp3 - With: Private Physician - When: Upon discharge from the Emergency Department - Reason: Continuance of care Discharge Instructions: - Discharge Summary Sheet sp3 - Abdominal Pain, Adult sp3 Forms: - Medication Reconciliation Form sp3 - Antibiotic Education sp3 - Prescription Opioid Use sp3 - Patient Portal Instructions sp3 - Leadership Thank You Letter sp3 Signatures: Dispatcher [employer] EDMS Rhea Jefferson RN RN iw Ksenia Owen MD MD sp3 Ivon Bar RN RN ha1 Leonard Segura RN RN rs5 Corrections: (The following items were deleted from the chart) 19:05 18:56 ED course: Patient is full workup negative so far. Vital signs normal. UA sp3 pending. Follow-up on UA will be signed out to nighttime physician. Plan is to discharge home with outpatient MRI and PCP follow-up if UA negative.. sp3
[2024-08-03 21:06] VITALS: TEMP 98.2
[2024-08-03 21:23] VITALS: BP 121/89; O2SAT 95
== END 2024-08-03 20:40 | disposition home or self-care (01) ==
LOC: ER 14:48
DX: R10.11 Right upper quadrant pain (principal); I10 Essential (primary) hypertension; I48.91 Unspecified atrial fibrillation; Z95.0 Presence of cardiac pacemaker
CPT/HCPCS: 85025; 36415; 83605; 81003; 84484; 83690; 80053; 74177; 76705; 96375; 96374; 99285; Q9967; J2405